=== PATIENT | female | born 1965 | race Caucasian/White ===

== ENCOUNTER → 2018-09-25 12:08 | Outpatient (CLI) | payer OTHER, SELFPAY ==
--- NOTE | 2018-09-25 12:14 | US_ITS ---
STUDY: ABDOMINAL ULTRASOUND - RIGHT UPPER QUADRANT REASON FOR VISIT: Female, 52 years old. Abdominal pain. TECHNIQUE: Ultrasound evaluation of the right upper quadrant was performed with real-time and static bennett-scale imaging. TECHNICAL QUALITY: Adequate. COMPARISON: Comparison is made with prior examination dated March 22, 2014. FINDINGS: Liver: The liver measures 10.7 cm. There is normal echogenicity of the liver. The bile ducts are within normal limits. There is hepatic color flow. The direction of portal flow is hepatopetal. There is no demonstrated mass lesion. Gallbladder: Normal distended gallbladder. The gallbladder wall measures 2.0 mm. There is a negative sonographic Delaney's sign. There is no pericholecystic fluid. There are no gallstones. 2 gallbladder polyps are seen adherent to the gallbladder wall. The larger measures 4 mm x 3 mm x 3 mm. These are unchanged. Common Bile Duct (C.B.D.): The common bile duct measures 1.4 mm. Pancreas: Normal size of the head, body and tail of the pancreas. There is normal echogenicity of the pancreas. There is no demonstrated pancreatic mass or cyst. Right Kidney: Normal size of the right kidney. The right kidney measures 10.7 cm x 4.3 cm x 3.8 cm. Normal renal cortex. The right cortex measures 1.0 cm. There is no demonstrated renal mass or cyst. There is no right hydronephrosis. US/Abdomen Limited IMPRESSION: Stable, 2 small gallbladder polyps. Electronically Signed: Dain Agrawal MD at 9:53 EST Tel [phone], Service support ,
[2018-09-25 14:30] LABS: ALB/GLOB Ratio 1.1 RATIO (0.9-2.4); AST(SGOT) 18 U/L (15-37); Alanine Aminotransfer ALT/SGPT 23 U/L (13-56); Albumin, Serum 3.7 g/dL (3.2-5.0); Alkaline Phosphatase 80 U/L (45-117); Anion Gap 11 (5-15); BUN 15 mg/dL (7-18); BUN/Creat Ratio 20.1 RATIO (10-20); Calcium,Total 8.6 mg/dL (8.5-10.1); Chloride 105 mmol/L (98-107); Creatinine, Serum 0.74 mg/dL (0.55-1.02); EST Glomerular Filtration Rate 86 mL/min (>60); Est Glom Filt Rate - Afr Amer 104 mL/min (>60); Globulin 3.4 g/dL (2.2-4.2); Glucose 82 mg/dL (74-106); Potassium 3.7 mmol/L (3.5-5.1); Protein, Total 7.1 g/dL (6.4-8.2); Sodium Level 144 mmol/L (136-145)
[2018-09-27 11:28] LABS: Bilirubin, Direct 0.27 mg/dL (0.00-0.30)
== END ==
PROVIDERS: Family Provider Family Medicine; PCP Family Medicine; Referring Provider Family Medicine; Visit Provider Family Medicine
DX: R17 Unspecified jaundice (principal); R10.11 Right upper quadrant pain; R10.9 Unspecified abdominal pain
CPT/HCPCS: 36415; 76705; 80053; 82248

== ENCOUNTER 2018-11-10 17:00 | Outpatient (RCR) | payer OTHER, SELFPAY ==
--- NOTE | 2018-09-22 07:59 | MASS.EVAL ---
Massage Therapy Evaluation: Initial Evaluation Date: 09/20/2018 SUBJECTIVE: Linda is a 52 year old female who was referred to the [facility] facility for a massotherapy evaluation by Dr. Madsen with the diagnosis of neck pain. She presents today with the symptoms of neck pain with headaches. 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 She reports having a medical history of neck and back pain. She reports having minimal limitations during her daily activities currently. OBJECTIVE: Upon observation Linda has poor posture with her head forward and shoulders forward from the neutral position in sitting and standing. After examination and palpation I found her to have very high muscle tension and myofascial restrictions in her sub occipitals, trapezius, rhomboids, scalenes, thoracic paraspinals and pectoral muscles. Her cervical through lumbar paraspinals were also tight. The first treatment consisted of a one hour massage to her upper body with myofascial release, muscle stripping, trigger point compression techniques, and cervical manual traction. ASSESSMENT: I feel that Linda is a good candidate for massotherapy at this time. She had a favorable response to the first treatment with reduction in her muscle aches, pain and tension. She also had improvement in her cervical flexibility. Massage has been known to help Linda in the past. PLAN: The plan of care was reviewed with the patient. The patient is to be seen on as needed basis for a total of ten sessions with the recommendation of once every four weeks for a one hour treatment. Whitney Rdz LMT
--- NOTE | 2018-09-22 08:05 | MASS.EVAL_ITS ---
Massage Therapy Evaluation: Initial Evaluation Date: 09/20/2018 SUBJECTIVE: Linda is a 52 year old female who was referred to the [facility] facility for a massotherapy evaluation by Dr. Madsen with the diagnosis of neck pain. She presents today with the symptoms of neck pain with headaches. 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 She reports having a medical history of neck and back pain. She reports having minimal limitations during her daily activities currently. OBJECTIVE: Upon observation Linda has poor posture with her head forward and shoulders forward from the neutral position in sitting and standing. After examination and palpation I found her to have very high muscle tension and myofascial r estrictions in her sub occipitals, trapezius, rhomboids, scalenes, thoracic paraspinals and pectoral muscles. Her cervical through lumbar paraspinals were also tight. The first treatment consisted of a one hour massage to her upper body with myofascial release, muscle stripping, trigger point compression techniques, and cervical manual traction. ASSESSMENT: I feel that Linda is a good candidate for massotherapy at this time. She had a favorable response to the first treatment with reduction in her muscle aches, pain and tension. She also had improvement in her cervical flexibility. Massage has been known to help Linda in the past. PLAN: The plan of care was reviewed with the patient. The patient is to be seen on as needed basis for a total of ten sessions with the recommendation of once every four weeks for a one hour treatment. Whitney Rdz LMT
--- NOTE | 2018-11-10 16:31 | MASS.DISCH ---
Massage Therapy Discharge Summary: Discharge Date: 11/10/2018 Linda was seen for a massotherapy evaluation on 09/20/2018 with the diagnosis of neck pain. She was treated with three sessions of massage therapy consisting of moderate pressure soft tissue techniques, myofascial release and trigger point compression to her upper body with focus on her neck and shoulders. Linda responded well to the therapy by reporting decreased tension in her neck, shoulders, back and hips. Her goals for therapy were not met throughout the treatment sessions due to not scheduling more appointments. At this time this patient is being discharged from our care at [facility] facility.
== END 2018-11-10 19:00 | disposition home or self-care (01) ==
LOC: MASS 17:00
PROVIDERS: Family Provider Family Medicine; PCP Family Medicine; Visit Provider Family Medicine
DX: M54.2 Cervicalgia (principal)
CPT/HCPCS: 97124

== ENCOUNTER 2018-11-13 07:30 | Day surgery (SDC) | payer OTHER, SELFPAY ==
[2018-11-08 08:24] VITALS: BMI 21.3
[2018-11-13] VITALS (7 sets, daily range): BP systolic 83–129; BP diastolic 56–75; PULSE 74–79; RESP 14–16; TEMP 36.4–37.4; O2SAT 96–100; BMI 21.7
--- NOTE | 2018-11-13 08:30 | IMM_PTH ---
PATIENT: TAMICA TAPIA LOC: EN U#:[id number] AGE/SX: 53/F ROOM: RE11/13/[address]: Dr. Donny Romero MD : 1965 BED: DIS: 11/13/2018 SPEC #: [id number] RECD: 11/15/18 07:50 STATUS: LEBRON REQ #: [id number] SARTHAK: 11/13/18 08:[address]: Donny Romero DEPT: IMMUNOHISTOCHEMISTRY RECD BY: Valorie Garcia ENTERED: 11/15/18 07:51 SP TYPE: IMMUNO OTHR DR: Dr. Camila Madsen, DO Tissues: Stomach, NOS Procedures: H Pylori (initial) PHYSICIAN & INSTITUTION [place] [id number] SPECIMEN INFORMATION: Tissue Source: Antrum biopsy Clinical Info: Right upper quadrant abdomen pain, nausea, history H. pylori, diarrhea Specimen Number: [id number] CPT code: 36234 METHODOLOGY: Deparaffinized sections of prefer/formalin-fixed tissue or PAP/DQ stained slides are incubated with monoclonal/polyclonal antibodies/oligonucleotide probes. Localization is made via biotin free immunoperoxidase method. Appropriate controls are performed and reacted as expected. Results on target cell population are indicated in the following table: RESULTS: ANTIBODY / CLONE RESULT H Pylori (polyclonal) negative These tests were developed and their performance characteristics determined by [facility]. They may not have been cleared or approved by the U.S. Food and Drug Administration. The FDA has determined that such clearance or approval is not necessary. INTERPRETATION: Antrum, biopsy: Negative for Helicobacter pylori organisms. AM:jona 11/15/18
--- NOTE | 2018-11-13 08:30 | OP.ENDO_ITS ---
Patient Name: Linda Bellamy Procedure Date: 11/13/2018 8:11 AM Date of : 1965 Age: 53 Procedure: Upper GI endoscopy Indications: Abdominal pain in the right upper quadrant, Suspected Helicobacter pylori, Diarrhea, Nausea Providers: Donny Romero MD Referring MD: Donny Romero MD Medicines: See the Anesthesia note for documentation of the administered medications Patient Profile: This is a 53 year old female. Refer to note in patient chart for documentation of history and physical. Complications: No immediate complications. Procedure: Pre-Anesthesia Assessment: - Prior to the procedure, a History and Physical was performed, and patient medications and allergies were reviewed. The patient's tolerance of previous anesthesia was also reviewed. The risks and benefits of the procedure and the sedation options and risks were discussed with the patient. All questions were answered, and informed consent was obtained. Prior Anticoagulants: The patient has taken no previous anticoagulant or antiplatelet agents. ASA Grade Assessment: II - A patient with mild systemic disease. After reviewing the risks and benefits, the patient was deemed in satisfactory condition to undergo the procedure. After obtaining informed consent, the endoscope was passed under direct vision. Throughout the procedure, the patient's blood pressure, pulse, and oxygen saturations were monitored continuously. The gastroscope was introduced through the mouth, and advanced to the second part of duodenum. The upper GI endoscopy was accomplished without difficulty. The patient tolerated the procedure well. Scope In: 8:21:25 AM Scope Out: 8:23:55 AM Total Procedure Duration Time 0 hours 2 minutes 30 seconds Findings: The examined esophagus was normal. The entire examined stomach was normal. Biopsies were taken with a cold forceps for Helicobacter pylori testing. The examined duodenum was normal. No biopsies or other specimens were collected for this exam. Impression: - Normal esophagus. - Normal stomach. Biopsied. - Normal examined duodenum. No specimens collected. Recommendation: - Discharge patient to home. - Resume previous diet. - Continue present medications. - Await pathology results. - Repeat upper endoscopy at appointment to be scheduled for surveillance. - Return to my office in 1 week. Procedure Code(s): --- Professional --- 73945, Esophagogastroduodenoscopy, flexible, transoral; with biopsy, single or multiple Diagnosis Code(s): --- Professional --- R10.11, Right upper quadrant pain R19.7, Diarrhea, unspecified R11.0, Nausea CPT copyright 2017 [employer]. All rights reserved. The codes documented in this report are preliminary and upon principal network architect review may be revised to meet current compliance requirements. MD Donny Vasquez MD 11/13/2018 8:29:04 AM This report has been signed electronically. Number of Addenda: 0 Note Initiated On: 11/13/2018 8:11 AM
--- NOTE | 2018-11-13 08:30 | GASB_PTH ---
PATIENT: TAMICA TAPIA LOC: EN U#:[id number] AGE/SX: 53/F ROOM: RE11/13/[address]: Dr. Donny Romero MD : 1965 BED: DIS: 11/13/2018 SPEC #: [id number] RECD: 11/13/18 09:10 STATUS: LEBRON DAI #: [id number] SARTHAK: 11/13/18 08:[address]: Donny Romero DEPT: SURGICAL PATHOLOGY RECD BY: Dominick Duke ENTERED: 11/13/18 11:56 SP TYPE: Gastric Bx OTHR DR: Dr. Camila Madsen, DO Tissues: Gastric mucous membrane Procedures: Surgery Specimen Level IV HEADER OPERATION: EGD ([facility] [place]) PRE-OP DIAGNOSIS: Right upper quadrant abdomen pain, nausea, history of H. pylori, diarrhea TISSUE SUBMITTED: Antrum biopsy for H. pylori and path MICROSCOPIC DIAGNOSIS Gastric antrum, biopsy: Chronic gastritis, mild to moderate. See comment. AM:jona 11/15/18 COMMENT The results of immunohistochemistry for Helicobacter pylori will be reported separately ([id number]). MICROSCOPIC DESCRIPTION Slides are reviewed. GROSS DESCRIPTION Received in fixative is one container labeled with the patient's name and designated antrum biopsy. The specimen consists of one irregular fragment of light claire soft tissue that measures 0.5 x 0.3 x 0.1 cm. The specimen is totally submitted in one cassette. / AM:jona 11/13/18 TC:3 CPT: 06945
== END 2018-11-13 09:16 | disposition home or self-care (01) ==
LOC: EN 07:31 → AC 07:32
PROVIDERS: Family Provider Family Medicine; PCP Family Medicine; Referring Provider Surgery; Visit Provider Surgery
PROC: 0DJ08ZZ Inspection of Upper Intestinal Tract, Via Natural or Artificial Opening Endoscopic (ICD-10-PCS; CPT 43235; principal; 2018-11-13 08:25)
DX: K29.50 Unspecified chronic gastritis without bleeding (principal); K82.4 Cholesterolosis of gallbladder; F41.9 Anxiety disorder, unspecified; D68.51 Activated protein C resistance; Z86.19 Personal history of other infectious and parasitic diseases; Z87.891 Personal history of nicotine dependence; Z79.899 Other long term (current) drug therapy
CPT/HCPCS: 43239; 88305; 88342; J7120

== ENCOUNTER 2018-11-24 08:28 | Day surgery (SDC) | payer OTHER, SELFPAY ==
[2018-11-13 07:46] VITALS: BMI 21.7
--- NOTE | 2018-11-21 11:42 | SDCEKG_ITS ---
Test Reason : Blood Pressure : / mmHG Vent. Rate : 082 BPM Atrial Rate : 082 BPM P-R Int : 122 ms QRS Dur : 078 ms QT Int : 368 ms P-R-T Axes : 014 057 036 degrees QTc Int : 429 ms Normal sinus rhythm Normal ECG Confirmed by BLAYNE VAZQUEZ, SENIA ([id number]), rewrite editor GIOVANA MCDONALD ([id number]) on 11/22/2018 3:33:54 PM Referred By: Donny Romero Confirmed By:SENIA CISNEROS MD
[2018-11-24] VITALS (9 sets, daily range): BP systolic 97–127; BP diastolic 63–86; PULSE 61–70; RESP 14–16; TEMP 36.3–37.2; O2SAT 95–100; BMI 21.9
--- NOTE | 2018-11-24 11:00 | LIVB_PTH ---
PATIENT: TAMICA TAPIA LOC: [facility] [place] U#:[id number] AGE/SX: 53/F ROOM: RE11/24/[address]: Dr. Donny Romero MD : 1965 BED: DIS: 11/24/2018 SPEC #: [id number] RECD: 11/27/18 07:15 STATUS: LEBRON DAI #: [id number] SARTHAK: 11/24/18 11:[address]: Donny Romero DEPT: SURGICAL PATHOLOGY RECD BY: Dominick Duke ENTERED: 11/27/18 08:12 SP TYPE: LIVER BX OTHR DR: Dr. Camila Madsen DO Tissues: A - Liver, NOS B - Gallbladder, NOS Procedures: Trichrome (control) Special Stain Group II Surgery Specimen Level III Surgery Specimen Level V Retic (control) Iron Stain (control) Alcian Blue (control) Alcian Blue/PAS (control) HEADER OPERATION: Laparoscopic cholecystectomy PRE-OP DIAGNOSIS: Polyp of gallbladder, right upper quadrant pain TISSUE SUBMITTED: A - Liver biopsy, B - Gallbladder MICROSCOPIC DIAGNOSIS A. Liver, core biopsy: No pathologic diagnosis. See comment. B. Gallbladder, cholecystectomy: Cholesterolosis and mild chronic cholecystitis. AM:jona 11/28/18 COMMENT A. Trichrome stain with matched control does not reveal fibrosis or cirrhosis. Iron stain with matched control does not reveal deposition of intraparenchymal iron. PAS with and without diastase and with matched controls do not reveal accumulation of abnormal proteins. Reticulin stain with matched control reveals a normal lymphatic architecture. Case has been reviewed in consultation with Dr. Rasmussen who concurs with the above diagnosis. IDC:SJ MICROSCOPIC DESCRIPTION Slides are reviewed. GROSS DESCRIPTION A - Received in fixative is one container labeled with the patient's name and designated liver biopsy. The specimen consists of an elongated fragment of brown soft tissue measuring 2 cm in length and 0.1 cm in diameter. The specimen is totally submitted in one cassette. B - Received is one container labeled with the patient's name and designated gallbladder. The specimen consists of a gallbladder measuring 8 cm in length and up to 4 cm in diameter. The external surface is pink-claire, smooth and glistening for the most part. Focally it is granular, hemorrhagic and contains cautery artifact. The gallbladder contains green-yellow mucoid bile. No stones are identified in the container or in the gallbladder. The mucosa is bile-stained and without any mass lesions. The gallbladder wall shows a few minute polypoid yellowish areas and may represent cholesterolosis. The gallbladder wall measures up to 0.1 cm in thickness. [employer] Message Broker Developer sections from the gallbladder and the cystic duct are submitted in one cassette. / SJ:jona 11/27/18 TC:3 CPT: 43956, 87682, 76123 x5
[2018-11-24] MEDS: Bupivacaine Mpf 0.5% 30 ML VIAL (11:15)
--- NOTE | 2018-11-24 11:34 | PCM.OPRPT ---
Problem List (1) Gallbladder polyp Status: Acute (2) Right upper quadrant abdominal pain Status: Acute (3) Nausea Status: Acute (4) Diarrhea Status: Acute Qualifiers: Diarrhea type: unspecified type Qualified Code(s): R19.7 - Diarrhea, unspecified Report of Operation Date of Procedure: 11/24/18 Pre-Operative Diagnosis: Follow-up of the gallbladder. Right upper quadrant abdominal pain. Nausea. Diarrhea unspecified Post-Operative Diagnosis: Same Surgery/Procedure Performed:: 1. Laparoscopic cholecystectomy. 2. Ferny-Cut needle core liver biopsy Type of Anesthesia:: Local Anesthesiologist: Viktor Damon Specimen's removed: 1. Gallbladder. 2. Ferny-Cut liver biopsy Drains: None Estimated Blood Loss (mL): < 25 CC Fluids Replaced: 1 L lactated Ringer's Description of Procedure: Patient was brought into the operating room placed in the supine position. Under excellent general endotracheal intubation the abdomen was sterilely prepped and draped in the usual fashion. Local was injected infraumbilically. Dissection was carried down to the fascia. The fascia was grasped with a [place]. Varies needle was placed inside the abdomen. The abdomen was insufflated to 15 torr. A 10/12 trocar was placed without difficulty. Patient was placed in the head up and rotated to the left position. A subxiphoid #5 trocar was placed, inferior to this another #5 trocar was placed, laterally a #5 trocar was placed. All of these under direct visualization without injury to underlying structures. Gallbladder was grasped and retracted in cephalad direction. It had a thick whitish running to it did not look like her normal salvador's egg blue. I dissected out the cystic duct it was an extremely small duct I inspected the portal triad I did not see any signs of dilatation and since the length of the cystic duct was short I did not feel comfortable trying to do a cholangiogram on a duct that looked obviously normal. I made a determination at that point that I was not going to do a cholangiogram. I placed hemoclips proximally and distally on the duct and ligated the duct. Identified the cystic artery placed hemoclips proximally distally and ligated the artery I deliver the gallbladder from the gallbladder bed with use of electrocautery. I had good hemostasis. I placed a specimen a specimen bag and delivered through the umbilical port without difficulty. I went back up to the liver. She did have an elevated bilirubin and since I will not going to shoot the cholangiogram I thought it was arvizu for me to obtain a Ferny-Cut liver biopsy. This was done on the right anterior aspect. Electrocautery was used for good hemostasis. I lifted up to look at the liver bed another time there was no signs of any bleeding clips were in good placement. Common duct was clearly visualized and did not look dilated. I removed the trochars under direct visualization. Good hemostasis was noted. Close the fascia the umbilical port with obiepy-sj-yemry stitch of 0 Vicryl skin incisions were closed with septicum stitches of 4-0 Monocryl Steri-Strips applied sterile dressings were applied and the patient tolerated the procedure well. - Admit VTE Documentation VTE Present on Admission: No VTE Mechan Device Prophylaxis: SCD's VTE Pharm Prophylaxis ordered?: No Reason prophylaxis not ordered:: Treatment Not Indicated
--- NOTE | 2018-11-24 11:40 | DCINST_ITS ---
Discharge Diet: Light diet - advance as tolerated Discharge Activity: May Not Drive - for 2-3 days or while taking narcotic pain medications., - - Do not drive, work heavy equipment or sign legal documents for 24 hours. May shower in (days): 1 - with the bandage in place. Additional Activity Instructions:: Pain medication may cause nausea. You should typically eat light foods as you take your pain medications. Pain medication may also cause constipation. If this is a problem for you, please discuss with your doctor. Call your doctor if your incision/area has: Continuous Slow Oozing, Sudden Increased Bleeding, Increased Pain/ Swelling, Increased Redness, Foul Smelling Discharge Call your doctor if you observe: Fever of 101 or Higher Suture Line Care: Avoid Pulling/Pushing, Avoid Pinching/Bending Additional Dressing/Incision Instructions:: Leave operative bandaids on for 2 days. When you remove dressing, leave Steri-Strips on until your follow-up appointment, or until the Steri-Strips fall off on their own. Allergies/Adverse Reactions: Allergies diazepam [From Valium] Allergy (Verified 11/24/18 08:43) Other oxycodone HCl [From Percocet] Allergy (Verified 11/24/18 08:43) Other Penicillins Allergy (Verified 11/24/18 08:43) Swelling zolpidem tartrate [From Ambien] Allergy (Verified 11/24/18 08:43) Other Medications to take at Discharge Lorazepam [Ativan] 0.5 mg PO DAILY PRN PRN 01/18/14 Clobetasol Propionate/Emoll [Clobetasol Emollient 0.05% Crm] 15 gm TP PRN PRN 11/21/18 Hydrocodone Bitart/Apap 5-325 [[place] 5MG-325MG] 1 - 2 tab PO Q4H PRN PRN 5 Days #30 tab 11/24/18 The following prescriptions were given: Hydrocodone Bitart/Apap 5-325 [[place] 5MG-325MG] 1 - 2 tab PO Q4H PRN PRN 5 Days #30 tab PRN Reason: Pain Primary Care Physician: Camila Madsen DO [Primary Care Provider] - Test Results: Test results from this visit will be discussed in further detail at your follow- up appointment, if applicable. Please Follow Up With: Donny Romero MD - Please call [phone] to schedule an appointment. When: 7 days after your surgery.
== END 2018-11-24 15:19 | disposition home or self-care (01) ==
LOC: SDC 08:30 → AC 08:31
PROVIDERS: Family Provider Family Medicine; PCP Family Medicine; Referring Provider Surgery; Visit Provider Surgery
PROC: (CPT 47379; principal; 2018-11-24 10:40)
DX: K81.1 Chronic cholecystitis (principal); D68.51 Activated protein C resistance; F41.9 Anxiety disorder, unspecified; Z87.891 Personal history of nicotine dependence; Z86.19 Personal history of other infectious and parasitic diseases; Z79.899 Other long term (current) drug therapy
CPT/HCPCS: 47379; 47562; 88304; 88307; 88313; 93005; J7120; J2405

== ENCOUNTER 2018-12-01 18:58 | Emergency (ER) | payer OTHER, SELFPAY ==
[2018-11-24 08:45] VITALS: BMI 21.9
[2018-12-01 18:58] VITALS: BP 138/78; PULSE 89; RESP 18; TEMP 36.7; O2SAT 98; BMI 21.7
[2018-12-01 19:10] VITALS: BP 149/83; PULSE 80; RESP 16; TEMP 37.4; O2SAT 95
--- NOTE | 2018-12-01 19:21 | CT_ITS ---
STUDY: CT ABDOMEN AND PELVIS WITH CONTRAST REASON FOR EXAM: Female, 53 years old. Right upper quadrant pain status post cholecystectomy. RADIATION DOSAGE (If Supplied By Facility): CTDIvol = ( 10.09 ) mGy, DLP = ( 318.40 ) mGycm TECHNIQUE: Transaxial images were obtained from the dome of the diaphragm to the symphysis pubis without oral contrast. 100 ml of Isovue 300 contrast was administered. Sagittal and coronal images were reconstructed. Individualized dose optimization techniques were used for this CT. COMPARISON: 01/18/2014. FINDINGS: Lung bases are clear. Visualized heart is normal. The liver is unremarkable. The gallbladder is surgically absent. There is no collection in the gallbladder fossa. The common duct is normal in caliber. The spleen and pancreas are unremarkable. The adrenal glands are normal. The kidneys are unremarkable. No stones or hydronephrosis. The aorta is normal in caliber. There is no free fluid, free air, or organized collection. No bowel obstruction or inflammatory change. Normal appendix. Urinary bladder is unremarkable. Normal abdominal wall. Normal osseous structures. CT/Abdomen/Pelvis W IV Cont ONLY IMPRESSION: No acute findings. No free fluid or collection in the gallbladder fossa. Electronically Signed: Fiordaliza Maddox MD at 20:34 EST Tel , Service support ,
[2018-12-01 19:39] LABS: Absolute Lymphocyte Count 2.43 X10^3/ul (0.83-4.51); Absolute Neutrophil Count 2.8 X10^3/uL (2.0-7.7); Basophil# 0.03 X10^3/uL; Basophil% 0.5 % (0-1); Eosinophil# 0.26 X10^3/uL; Eosinophils% 4.3 % (0-5); Hematocrit 40.8 % (37-47); Hemoglobin 13.4 g/dl (12.0-15.0); Lymphocyte # 2.43 X10^3/ul (4.0); Lymphocyte % 39.9 % (19-41); Mean Corp Hgb Conc 32.8 g/gl (32-36); Mean Corpuscular Hgb 29.5 pg (27.0-32.0); Mean Corpuscular Volume 89.7 fL (81-99); Mean Platelet Vol. 10.9 fl (6.2-12.0); Monocyte# 0.55 X10^3/uL; Neutrophil # 2.82 X10^3/uL (2.7-7.7); Neutrophil % 46.3 % (47-70); POSITIVE COUNT NO; POSITIVE DIFFERENTIAL NO; POSITIVE MORPHOLOGY NO; Platelet Count 230 K/mm3 (150-450); RBC Distribution Width CV 12.8 % (11.6-14.6); RBC Distribution Width SD 41.3 fl (35.1-43.9); Red Blood Count 4.55 M/mm3 (4.2-5.4); White Blood Count 6.1 K/mm3 (4.4-11.0)
[2018-12-01 19:49] LABS: AST(SGOT) 29 U/L (15-37); Alanine Aminotransfer ALT/SGPT 67 U/L (13-56); Albumin, Serum 3.7 g/dL (3.2-5.0); Alkaline Phosphatase 117 U/L (45-117); Anion Gap 8 (5-15); BUN 17 mg/dL (7-18); BUN/Creat Ratio 24.5 RATIO (10-20); Bilirubin, Direct 0.14 mg/dL (0.00-0.30); Calcium,Total 8.4 mg/dL (8.5-10.1); Chloride 105 mmol/L (98-107); Creatinine, Serum 0.69 mg/dL (0.55-1.02); EST Glomerular Filtration Rate 93 mL/min (>60); Est Glom Filt Rate - Afr Amer 113 mL/min (>60); Estimated Creatinine Clearance 72.86 ml/min; Globulin 3.6 g/dL (2.2-4.2); Glucose 98 mg/dL (74-106); Lipase 240 U/L (73-393); Protein, Total 7.3 g/dL (6.4-8.2); Sodium Level 138 mmol/L (136-145)
--- NOTE | 2018-12-01 21:17 | ED.VISSUMM ---
- ER Visit Summary Date of Service: 12/01/18 Chief Complaint: Right upper quadrant abdominal pain History of Present Illness: The patient is a 53 F is post cholecystectomy on 11/23/2018. Also at that time patient had liver biopsy. She is been doing well with but has had pretty constant pain since surgery about 8 days ago. She denies any nausea vomiting or fever. Due to the continued pain they want to make sure she was not having some type of complication. Physical Examination: Well-appearing middle-age female. Vital signs are stable afebrile. No distress. H EENT exam unremarkable. Neck nontender. Lungs there to auscultation bilaterally. Heart regular rhythm no murmur. Abdomen is soft. Nondistended. Normal bowel sounds. Very minimal right upper quadrant tenderness to deep palpation. The laparoscopic surgical sites are all dry and clean are healing nicely. There is no signs of infection. Positive bowel sounds. No signs of obstruction. Extremities unremarkable. Neurologically she is awake and alert with no focal motor deficits. Test Results: CBC White count of 6. Hemoglobin 13. Electrolytes normal. Liver enzymes normal except for ALT slightly elevated at 67. The rest are normal. Lipase normal. CT abdomen pelvis with IV contrast showed no acute findings as read by the radiologist and reviewed by me. There is no free fluid or fluid collection. No signs of an abscess nor any signs of a biliary leak. Emergency Department Course and Treatment: Repeat exam patient doing well at 2105. Abdomen is benign. We discussed all test results and she is more than comfortable being discharged home. I also spoke to her general surgeon Dr. Chevy Romero who will see the patient outpatient follow-up. She already is on pain medications at home. Treatment Plan: Continue current pain meds. Follow-up with your doctor. Disposition: Discharge Impression: Acute abdominal pain status post laparoscopic cholecystectomy This note was generated with [employer] dictation software. It may contain incorrect words, spelling, and punctuation that were not noted in review of the chart prior to signing ED Disposition - Plan for ED Patient: Chief Complaint: Abd Pain Referrals: Camila Madsen DO [Primary Care Provider] -
--- NOTE | 2018-12-01 21:20 | ED.DEP ---
ED Disposition - Plan for ED Patient: Disposition: Home or Assisted Living Chief Complaint: Abd Pain Referrals: Donny Romero MD [STAFF PHYSICIAN] - As soon as possible Additional Instructions: Follow-up with Dr. Romero next week. Continue your current pain medications as needed.
[2018-12-01 21:22] VITALS: BP 116/5; PULSE 84; RESP 16; O2SAT 99
--- OUTSIDE RECORDS SUMMARY | 2019-02-05 08:26 | XMS RPT_ITS ---
:1965 Author Organization [employer] Name Relationship Address Phone MAUREEN ROSAMARIA Unavailable . + [place] [address] OHAIL, KILO Unavailable [address] + [place] [address] [facility] Unavailable [address] + [place] [address] MAUREEN, ROSAMARIA Unavailable . + [place] [address] OHAIL, KILO Unavailable [address] + [place] [address] [facility] Unavailable [address] + [place] [address] MAUREEN, ROSAMARIA Unavailable . + [place] [address] OHAIL, KILO Unavailable [address] + [place] [address] [facility] Unavailable [address] + [place] [address] MAUREEN, ROSAMARIA Unavailable Unavailable + [place] [address] OHAIL, KILO Unavailable [address] + [place] [address] [facility] Unavailable [address] + [place] [address] MAUREEN, ROSAMARIA Unavailable . + [place] [address] OHAIL, KILO Unavailable . + [place] [address] [facility] Unavailable [address] + [place] [address] MAUREEN, ROSAMARIA Unavailable . + [place] [address] OHAIL, KILO Unavailable [address] + [place] [address] [facility] Unavailable [address] + [place] [address] MAUREEN, ROSAMARIA Unavailable Unavailable + OHAIL, KILO Unavailable Unavailable + [facility] Unavailable [address] + [place] [address] MAUREEN, ROSAMARIA Unavailable Unavailable + [place] [address] OHAIL, KILO Unavailable [address] + [place] [address] [facility] Unavailable [address] + [place] [address] MAUREEN, ROSAMARIA Unavailable Unavailable + OHAIL, KILO Unavailable Unavailable + [facility] Unavailable [address] + [place] [address] Maureen, Rosamaria Unavailable . + [place] [address] [facility] Unavailable [address] + [place] [address] [facility] Unavailable [address] + [place] [address] EIALLYN, ROSAMARIA Unavailable Unavailable + SHAHAB, RICH Unavailable [address] + [place] [address] [facility] Unavailable [address] + [place] [address] EIKEISHAERRY, ROSAMARIA Unavailable Unavailable + SHAHAB RICH Unavailable [address] + [place] [address] [facility] Unavailable [address] + [place] [address] EIKEISHAERRY, ROSAMARIA Unavailable x + [place] [address] SHAHAB, RICH Unavailable [address] + [place] [address] [facility] Unavailable [address] + [place] [address] Care Team Providers Name Role Phone [place], Donny Attending Unavailable Referred, Self Referring Unavailable [place], Donny Attending Unavailable [place], Donny Referring Unavailable Malys, Camila Primary Care Unavailable Nick, Donny Attending Unavailable Nick, Donny Referring Unavailable Malys, Camila Primary Care Unavailable Nick, Donny Attending Unavailable Malys, Camila Referring Unavailable [place], Donny Attending Unavailable Macie TADEO, Vee Attending Unavailable Malys, Camila Referring Unavailable Malys, Camila Primary Care Unavailable Jesse Penn Attending Unavailable MoodispaLamont powers Attending Unavailable DeHorta, Brady Referring Unavailable Leslie Dangelo Attending Unavailable Malys, Camila Referring Unavailable ASSESSMENT, HEALTH RISK Attending Unavailable ASSESSMENT, HEALTH RISK Referring Unavailable Malys, Camila Primary Care Unavailable Malys, Camila Attending Unavailable Malys, Camila Referring Unavailable Malys, Camila Primary Care Unavailable Malys, Camila Attending Unavailable Malys, Camila Referring Unavailable Malys, Camila Primary Care Unavailable Malys, Camila Attending Unavailable Malys, Camila Primary Care Unavailable PROBLEMS PROBLEMS DATE TYPE CONDITION / CODE ATTENDING STATUS SOURCE 11/24/2018 Unknown K82.4 - Donny Romero Active [place] [facility]olesterol[facility] of [facility] gallbladder / Hospital K82.4(ICD-10) Repository 12/08/2018 Unknown Z01.810 - Encounter Lamont Cisneros Active [place] for preprocedural [facility] cardiovascular Hospital examination / Repository Z01.810(ICD-10) 11/27/2018 Unknown R10.11 - Right upper Nick, Donny Active [place] quadrant pain / Community R10.11(ICD-10) Hospital Repository 11/27/2018 Unknown R11.0 - Nausea / [place]Donny Active [place] R11.0(ICD-10) [facility] Repository 11/27/2018 Unknown R19.7 - Diarrhea, Nick, Donny Active [place] unspecified / Community R19.7(ICD-10) Hospital Repository 11/13/2018 Unknown M54.2 - Cervicalgia / Malys, Camila Active [place] M54.2(ICD-10) [facility] Repository 11/08/2018 Unknown Z86.19 - Personal Donny Romero Active [place] history of other Community infectious and Hospital parasitic diseases / Repository Z86.19(ICD-10) 09/25/2018 Unknown R17 - Unspecified Malys, Camila Active [place] jaundice / Community R17(ICD-10) Hospital Repository 09/25/2018 Unknown R10.9 - Unspecified Camila Madsen Active [place] abdominal pain / Community R10.9(ICD-10) Hospital Repository PROCEDURES PROCEDURES No Procedure Records FoundRESULTS RESULTS URGENT CARE VISIT Observed: 12/09/2018 Status: F Source: [place] REPORT 9:50 AM [facility] [address] [place] [address] [address] [place] [address] OFFICE VISIT Date of Service: 12/09/18 MR#: [id number] Acct: [id number] Name: LINDA BELLAMY Rep #: [id number] : 1965 Provider: IVAN Dangelo Age/Sex: 53/F Location: [facility] Status: Signed Intake Vital Signs12/09/18 Height 5 ft 2 in 12/09/18 Weight: 117 lb 8 oz Intake Visit Reasons: HIVES SINCE /HAD SX NOV 24 Chief Complaint: Hives Cloth Finisher Required: No Accompanied by: Family / Other Allergies diazepam [From Valium] Allergy (Verified 11/30/18 13:53) Other oxycodone HCl [From Percocet] Allergy (Verified 11/30/18 13:53) Other Penicillins Allergy (Verified 11/30/18 13:53) Swelling zolpidem tartrate [From Ambien] Allergy (Verified 11/30/18 13:53) Other Medications Lorazepam [Ativan] 0.5 mg PO DAILY PRN PRN 01/18/14 [History Confirmed 12/01/18] Clobetasol Propionate/Emoll [Clobetasol Emollient 0.05% Crm] 15 gm TP PRN PRN 11/21/18 [History Confirmed 12/01/18] Hydrocodone/Acetaminophen [Royal 5-325 Tablet] 1 - 2 ea PO Q4H PRN PRN 12/01/18 [History Confirmed 12/01/18] PFSH Medical History Anxiety (Acute) Factor V Leiden (Acute) Gallbladder polyp (Acute) Surgical History History of breast augmentation (Acute) History of colonoscopy (Acute 06/2017) History of dilation and curettage (Acute 2004) S/P laparoscopic cholecystectomy (Acute) Family History Sister Asthma Colon cancer Mother Diabetes Heart disease Hypertension CVA (cerebral vascular accident) Social History Smoking Status: Former smoker HPI HPI Chief Complaint: Hives Details: LINDA BELLAMY, is a 53 F who presents to the office today for history of being up all night the past 2 nights with hives on her abdomen, back and bilateral forearms diffusely. She gives a history of having elevated bilirubin, cholecystectomy 11/2018, and liver biopsy which was negative. She was told she has inflammation of the liver that was causing her RUG pain for a few weeks. She ttook some Hydrocodone for about 5 days, and was then told to take Ibuprofen which she did for 4 days which brought her RUG abdominal pain down to 2/10 from . She states she does however continue to have indigestion with belching mid epigastric area. She is convinced the hives are from a new soap she took a bath with as the hives started shortly after the bath. She has not used the soap since. She states she has taken Ibuprofen before, and we discussed this also as a possibility. She states she gets hyper with Benadryl but wanted to see if she could try Atarax as she cannot tolerate another night of sleep. The hives are cyclic and only bad at night and clear by the morning. There is now only one on her right forearm. She states both forearms were bright red and itching all night . ROS Const Constitutional: No body ache, chills, fatigue, fever(s), night sweats, change in appetite, weakness, frequent falls, headache(s) or excessive sweating Eyes Eyes: No visual disturbances, light sensitivity, eye pain or change in vision ENT ENT: No ear pain, ear discharge, hearing loss, dizziness/vertigo, nasal discharge, difficulty swallowing, sore throat, neck pain or headache(s) Resp Respiratory: No cough, chest congestion, hemoptysis, shortness of breath or wheezing Cardio Cardiology: No shortness of breath, irregular heart rhythm, lightheadedness, chest pain at rest, chest pain with exertion, generalized swelling, orthopnea, palpitations or excessive sweating Gastro GI: Positive for belching (with epigastric discomfort); no difficulty swallowing, abdominal pain, bloating, change in bowel habits, diarrhea, blood in stool, Black,tarry stools, nausea/dyspepsia or vomiting Genitourinary-Female: No burning urination, urinary frequency, urinary urgency, blood in urine or Vaginal Itching Musc Musculoskeletal: No joint pain, back pain, numbness, tingling or neck pain Skin Skin: Positive for rash; no lesions or itching Neuro Neurology: No visual disturbances, numbness, tingling, abnormal speech, confusion, unsteady gait/balance, dizziness, weakness, frequent falls, loss of vision, headache(s) or memory loss Psych Psychiatric: No change in appetite, No confusion, No memory loss, Positive for anxiety (very strung out after being up itching all night, and recent health issues.), No depression, No panic attacks, No hallucinations, No Thoughts of harming yourself/Others Endo Endocrine: No fatigue, cold intolerance, excessive sweating, flushing, heat intolerance or increased thirst/drinking Aller/Imm Allergy/Immunologic: No wheezing, food intolerance, seasonal allergy symptoms, hives or itchy eyes Tarun/Lymp Hematologic/Lymphatic: Positive for other (has factor V, so rashid risk for blood clots); no easy bruising Exam Const General: cooperative, no acute distress Nutritional Appearance: thin Orientation: alert, oriented x3 HENMT Head: normal to inspection, normocephalic Ears: hearing grossly normal bilaterally, external ears normal, no periauricular adenopathy, EAC's normal Nose: nasal mucous membranes and turbinates normal, no nasal discharge Face and sinus: normal facial exam Mouth: oral mucosae normal, oropharynx normal, tongue normal Teeth and gingiva: gingiva normal Throat: posterior oropharynx normal Eyes General: appearance normal, both eyes and all related structures Eyelids: eyelids normal Conjunctivae: conjunctivae normal Sclera: sclerae normal Pupils: PERRL EOM: EOM intact bilaterally Direct ophthalmoscopy: normal light reflex, no photophobia Neck Neck: normal visual inspection, full ROM, no meningeal signs, supple, no lymphadenopathy Carotids: no bruits Lymphatic: no lymphadenopathy noted Chest Chest palpation AND inspection: normal inspection of the chest Resp Effort AND Inspection: normal respiratory effort, able to speak in complete sentences, symmetric chest movement, no audible wheezes, no cough, not labored, no respiratory distress Auscultation: Bilateral: Clear to Auscultation Cardio Rate: regular rate Rhythm: regular rhythm Heart Sounds: S1 normal, S2 normal GI Inspection: normal to inspection Auscultation: normal bowel sounds Palpation: soft, no hepatosplenomegaly, no pulsatile masses, tender (minimally RUQ and epigastrium. No bruits. ) Musc Musculoskeletal: No joint tenderness or joint redness Skin Rashes: rashes noted (one slightly raised, erythematous lesion c/w hive right volar forearm. ) Trauma: no lacerations or abrasions Wounds: no wounds Nails: normal Other: Patient states diffuse hives that keptt her up alll night cleared about 6 am. Neuro General: alert, oriented x3, moves all extremities Cognition: normal cognition Speech: speech normal Gait: normal gait Motor: muscle tone normal throughout Extrem General: normal exam except as noted (a hive right volar forearm), normal gait Psych Appearance: grossly normal, well kempt Mental Status: mental status grossly normal Mood: anxious mood (mild) Affect: normal affect Speech and Movement: speech and movement normal Attitude: cooperative Thought Process: normal Thought Content: normal Judgment: judgment good Assessment AND Plan Problems 1. Hives L50.9 Plan 1. Called Atarax to [facility] [place] 25 mg tablets, # 15, take one every 8 hours as needed for itching/hives. 2. Though patient is convinced this is from a new soap she used in a bath the night the hives started, discussed the possibility of it being from the Ibuprofen she had been taking X the 4 days prior to the hives erupting. She is advised to discuss with her PCP for further evaluation on Tuesday. 3. Prednisone was discussed as an option, but due to her recent liver issues she was afraid to take any medication other than the atarax, which her daughter, who is a nurse recommended she try since she gets hyper with Benadryl. 4. At present time there is only one hive present, on her right volar forearm. becomes severe and wide spread in the evenings and keeps up all night. She is advised to go to the ER if any SOB, Chest pain, or worsening off her symptoms occur. 5. Rec: f/u with an flame annealing machine operator. Coding Level of Care Code Off vis,est,level 3 Diagnoses Hives L50.9 12/09/18 0950 <Electronically signed by Leslie LOVE> Date Leslie Rivas Signature: Date (if applicable) CC: EMERGENCY DEPARTMENT Observed: 12/02/2018 Status: F Source: [place] SUMMARY 12:00 AM [facility] [place] Medical Records Department [address] [place] [address] Emergency Department Summary 12/01/18 2117 MR#: [id number] Acct: [id number] Name: LINDA BELLAMY Rep #: [id number] : 1965 53 From: Jesse Penn MD PCP: Camila Madsen DO Status: DEP ER - ER Visit Summary Date of Service: 12/01/18 Chief Complaint: Right upper quadrant abdominal pain History of Present Illness: The patient is a 53 F is post cholecystectomy on 11/23/2018. Also at that time patient had liver biopsy. She is been doing well with but has had pretty constant pain since surgery about 8 days ago. She denies any nausea vomiting or fever. Due to the continued pain they want to make sure she was not having some type of complication. Physical Examination: Well-appearing middle-age female. Vital signs are stable afebrile. No distress. H EENT exam unremarkable. Neck nontender. Lungs there to auscultation bilaterally. Heart regular rhythm no murmur. Abdomen is soft. Nondistended. Normal bowel sounds. Very minimal right upper quadrant tenderness to deep palpation. The laparoscopic surgical sites are all dry and clean are healing nicely. There is no signs of infection. Positive bowel sounds. No signs of obstruction. Extremities unremarkable. Neurologically she is awake and alert with no focal motor deficits. Test Results: CBC White count of 6. Hemoglobin 13. Electrolytes normal. Liver enzymes normal except for ALT slightly elevated at 67. The rest are normal. Lipase normal. CT abdomen pelvis with IV contrast showed no acute findings as read by the radiologist and reviewed by me. There is no free fluid or fluid collection. No signs of an abscess nor any signs of a biliary leak. Emergency Department Course and Treatment: Repeat exam patient doing well at 2105. Abdomen is benign. We discussed all test results and she is more than comfortable being discharged home. I also spoke to her general surgeon Dr. Chevy Romero who will see the patient outpatient follow-up. She already is on pain medications at home. Treatment Plan: Continue current pain meds. Follow-up with your doctor. Disposition: Discharge Impression: Acute abdominal pain status post laparoscopic cholecystectomy This note was generated with Onefeat dictation software. It may contain incorrect words, spelling, and punctuation that were not noted in review of the chart prior to signing ED Disposition - Plan for ED Patient: Chief Complaint: Abd Pain Referrals: Camila Madsen DO [Primary Care Provider] - What to do if you have Problems For any increased pain, shortness of breath, bleeding, nausea or vomiting, chest pain, or any unexpected problems, contact your Primary Care Provider. Call [facility] ([phone]) or report to the closest Emergency Room. Call 911 if necessary. 12/02/18 0000 <Electronically signed by Jesse Penn MD> Date Jesse Penn MD Cosigner Signature (If Indicated): Date CC: Camila aMdsen DO DISCHARGE INSTRUCTION Observed: 12/02/2018 Status: F Source: [place] 12:00 AM [facility] Medical Records Department [address] [place] [address] Discharge Instruction 12/01/182119 MR#: [id number] Acct: [id number] Name: LINDA BELLAMY Rep #: [id number] : 1965 53 From: Jesse Penn MD PCP: Camila Madsen DO Status: DEP ER ED Disposition - Plan for ED Patient: Disposition: Home or Assisted Living Chief Complaint: Abd Pain Referrals: Donny Romero MD [STAFF PHYSICIAN] - As soon as possible Additional Instructions: Follow-up with Dr. Romero next week. Continue your current pain medications as needed. What to do if you have Problems For any increased pain, shortness of breath, bleeding, nausea or vomiting, chest pain, or any unexpected problems, contact your Primary Care Provider. Call [facility] ([phone]) or report to the closest Emergency Room. Call 911 if necessary. 12/02/18 0000 <Electronically signed by Jesse Penn MD> Date Jesse Penn MD Cosigner Signature (If Indicated): Date CC: Camila Madsen DO ABDOMEN/PELVIS W IV CONT Observed: 12/01/2018 Status: F Source: [place] ONLY 7:22 PM [facility] Imaging Services [address] [place] [address] Abdomen/Pelvis W IV Cont ONLY MR#: [id number] Acct: [id number] Name: [facility] Rep #: [id number] : 1965 F 53 From: Fiordaliza Maddox MD PCP: Camila Madsen DO Status: REG ER Study: Abdomen/Pelvis W IV Cont ONLY Date of Exam: 12/01/18 Exam# [id number] Ordering Dr: Jesse Penn MD STUDY: CT ABDOMEN AND PELVIS WITH CONTRAST REASON FOR EXAM: Female, 53 years old. Right upper quadrant pain status post cholecystectomy. RADIATION DOSAGE (If Supplied By Facility): CTDIvol = ( 10.09 ) mGy, DLP = ( 318.40 ) mGycm TECHNIQUE: Transaxial images were obtained from the dome of the diaphragm to the symphysis pubis without oral contrast. 100 ml of Isovue 300 contrast was administered. Sagittal and coronal images were reconstructed. Individualized dose optimization techniques were used for this CT. COMPARISON: 01/18/2014. FINDINGS: Lung bases are clear. Visualized heart is normal. The liver is unremarkable. The gallbladder is surgically absent. There is no collection in the gallbladder fossa. The common duct is normal in caliber. The spleen and pancreas are unremarkable. The adrenal glands are normal. The kidneys are unremarkable. No stones or hydronephrosis. The aorta is normal in caliber. There is no free fluid, free air, or organized collection. No bowel obstruction or inflammatory change. Normal appendix. Urinary bladder is unremarkable. Normal abdominal wall. Normal osseous structures. CT/Abdomen/Pelvis W IV Cont ONLY IMPRESSION: No acute findings. No free fluid or collection in the gallbladder fossa. Electronically Signed: Fiordaliza Maddox MD at 20:34 EST Tel , Service support , CC: Jesse Penn MD; Camila Madsen DO Dry Cans Back Tender: Signed CBC W/DIFF, AUTOMATED Collected: 12/01/2018 Status: F Source: [place] 7:20 PM [facility] [place] [facility] TYPE CODE TESTS RESULT OUT OF RANGE REFERENCE UNITS LAB L100.1000 4.4-11.0 K/mm3 Normal WBC 6.1 LAB L100.1200 4.2-5.4 M/mm3 Normal RBC 4.55 LAB L100.1300 12.0-15.0 g/dl Normal HGB 13.4 LAB L100.1400 37-47 % Normal HCT 40.8 LAB L100.1500 81-99 fL Normal MCV 89.7 LAB L100.1600 27.0-32.0 pg Normal MCH 29.5 LAB L100.1700 32-36 g/gl Normal MCHC 32.8 LAB L100.1810 11.6-14.6 % Normal RDW CV 12.8 LAB L100.1820 35.1-43.9 fl Normal RDW SD 41.3 LAB L100.1900 150-450 K/mm3 Normal PLT 230 LAB L100.2000 6.2-12.0 fl Normal MPV 10.9 LAB L100.2100 47-70 % Low NEUT% 46.3 LAB L100.2200 19-41 % Normal LY% 39.9 LAB L100.2300 0-10 % Normal MONO% 9.0 LAB L100.2400 0-5 % Normal EO% 4.3 LAB L100.2500 0-1 % Normal BASO% 0.5 LAB L100.2550 0.0-0.9 % Normal IM GRAN % 0.000 Result Comment: IG% - Immature Granulocytes (promyelocytes, myelocytes and metamyelocytes) > 1% indicates that a LEFT SHIFT is Present. LAB L100.2620 2.0-7.7 X10 3/uL Normal Absolute Neut 2.8 LAB L100.2720 0.83-4.51 X10 3/ul Normal Absolute Lymph 2.43 Performed By: #### L100.0100 #### [facility] [address] [place], [address] BASIC METABOLIC Collected: 12/01/2018 Status: F Source: [place] PROFILE (BMP) 7:20 PM [facility] [place] TYPE CODE TESTS RESULT OUT OF RANGE REFERENCE UNITS LAB L501.0100 74-106 mg/dL Normal GLU 98 Result Comment: Please note revised GLUCOSE reference range effective 2017. LAB L501.1000 7-18 mg/dL Normal BUN 17 LAB L501.1100 0.55-1.02 mg/dL Normal CREAT,SERUM 0.69 Result Comment: The validity of the calculated GFR AND GFRAA in patients over 70 years has not been determined. Clinical correlation is essential. LAB L501.1110 >60 mL/min Normal EST GFR 93 Result Comment: Non- GFR Calc LAB L501.1115 >60 mL/min Normal EST GFR - AA 113 Result Comment: GFR Calc LAB L501.1255 ml/min Normal Estimated CRCL 72.86 LAB L501.1300 10-20 RATIO High BUN/CRE 24.5 LAB L501.2200 8.5-10 mg/dL Low .1 CA 8.4 LAB L501.5300 136-14 mmol/L Normal 5 NA 138 LAB L501.5600 3.5-5. mmol/L Normal 1 K 4.0 LAB L501.5900 98-107 mmol/L Normal CL 105 LAB L501.6100 21.0-3 mmol/L Normal 2.0 CO2 25.0 LAB L501.6200 5-15 Normal GAP 8 Performed By: #### L500.2500, L500.3400, L501.2450 #### [facility] [address] [place], [place], [address] LIVER PROFILE Collected: 12/01/2018 Status: F Source: [place] 7:20 PM [facility] [place] TYPE CODE TESTS RESULT OUT OF RANGE REFERENCE UNITS LAB L501.1500 6.4-8.2 g/dL Normal T PROT 7.3 LAB L501.1800 3.2-5.0 g/dL Normal ALB 3.7 LAB L501.1950 2.2-4.2 g/dL Normal GLOB 3.6 LAB L501.4100 15-37 U/L Normal AST 29 LAB L501.4305 45-117 U/L Normal ALK P 117 LAB L501.4405 13-56 U/L High ALT 67 LAB L501.4600 0.20-1.00 mg/dL Normal T BILI 0.80 LAB L501.4700 0.00-0.30 mg/dL Normal D BILI 0.14 Performed By: #### L500.2500, L500.3400, L501.2450 #### [facility] [address] [place], [place], [address] LIPASE Collected: 12/01/2018 Status: F Source: [place] 7:20 PM [facility] TYPE CODE TESTS RESULT OUT OF RANGE REFERENCE UNITS LAB L501.2450 73-393 U/L Normal LIPASE 240 Performed By: #### L500.2500, L500.3400, L501.2450 #### [facility] [address] [place], [address] SURGERY VISIT REPORT Observed: 11/30/2018 Status: F Source: [place] 2:15 PM [facility] [address] [place], [place] [address] OFFICE VISIT Date of Service: 11/30/18 MR#: [id number] Acct: [id number] Name: LINDA BELLAMY Rep #: [id number] : 1965 Provider: Vee Quijano PA-C Age/Sex: 53/F Location: [facility] Status: Signed Intake Intake Visit Reasons: f/u candice surgery 11/24/18 dp Chief Complaint: RUQ pain Cloth Finisher Required: No Is patient in pain?: No Allergies diazepam [From Valium] Allergy (Verified 11/30/18 13:53) Other oxycodone HCl [From Percocet] Allergy (Verified 11/30/18 13:53) Other Penicillins Allergy (Verified 11/30/18 13:53) Swelling zolpidem tartrate [From Ambien] Allergy (Verified 11/30/18 13:53) Other Medications Lorazepam [Ativan] 0.5 mg PO DAILY PRN PRN 01/18/14 [History Confirmed 11/30/18] Clobetasol Propionate/Emoll [Clobetasol Emollient 0.05% Crm] 15 gm TP PRN PRN 11/21/18 [History Confirmed 11/30/18] Subjective Details: Patient is a 53 y/o female I am following for RUQ pain, polyp of gallbladder. Dr. Romero performed a laparoscopic cholecystectomy and liver biopsy on 11/24/18. Pathology demonstrated no pathologic diagnosis of the liver and mild chronic cholecystitis. Patient continues to note moderate amount of discomfort of the RUQ. She denies nausea, vomiting, fever. She notes her appetite is slow to return. she notes bowel habits has returned to normal. Objective Details: Abdomen- soft, tender RUQ. Positive bowel sounds. Incisions c/d/i. No erythema or infection noted. Assessment AND Plan Problems 1. Chronic cholecystitis K81.1 Plan - RTW letter given for 12/11/18 - Follow-up as needed Coding Level of Care Code Global Post Op Diagnoses Chronic cholecystitis K81.1 11/30/18 1415 <Electronically signed by Vee Quijano PA-C> Date Vee Quijano PA-C Cosigner Signature: Date (if applicable) CC: Camila Madsen OPERATIVE REPORT Observed: 11/27/2018 Status: F Source: [place] 1:15 PM [facility] [place] Medical Records Department [address] [place] [address] Operative Report 11/24/18 1134 MR#: [id number] Acct: [id number] Name: LINDA BELLAMY Rep #: [id number] : 1965 53 From: Donny Romero MD PCP: Camila Madsen DO Status: DEP [facility] [place] Location: [facility] Problem List (1) Gallbladder polyp Status: Acute (2) Right upper quadrant abdominal pain Status: Acute (3) Nausea Status: Acute (4) Diarrhea Status: Acute Qualifiers: Diarrhea type: unspecified type Qualified Code(s): R19.7 - Diarrhea, unspecified Report of Operation Date of Procedure: 11/24/18 Pre-Operative Diagnosis: Follow-up of the gallbladder. Right upper quadrant abdominal pain. Nausea. Diarrhea unspecified Post-Operative Diagnosis: Same Surgery/Procedure Performed:: 1. Laparoscopic cholecystectomy. 2. Ferny-Cut needle core liver biopsy Type of Anesthesia:: Local Anesthesiologist: Viktor Damon Specimen's removed: 1. Gallbladder. 2. Ferny-Cut liver biopsy Drains: None Estimated Blood Loss (mL): < 25 CC Fluids Replaced: 1 L lactated Ringer's Description of Procedure: Patient was brought into the operating room placed in the supine position. Under excellent general endotracheal intubation the abdomen was sterilely prepped and draped in the usual fashion. Local was injected infraumbilically. Dissection was carried down to the fascia. The fascia was grasped with a Cooter. Varies needle was placed inside the abdomen. The abdomen was insufflated to 15 torr. A 10/12 trocar was placed without difficulty. Patient was placed in the head up and rotated to the left position. A subxiphoid #5 trocar was placed, inferior to this another #5 trocar was placed, laterally a #5 trocar was placed. All of these under direct visualization without injury to underlying structures. Gallbladder was grasped and retracted in cephalad direction. It had a thick whitish running to it did not look like her normal salvador's egg blue. I dissected out the cystic duct it was an extremely small duct I inspected the portal triad I did not see any signs of dilatation and since the length of the cystic duct was short I did not feel comfortable trying to do a cholangiogram on a duct that looked obviously normal. I made a determination at that point that I was not going to do a cholangiogram. I placed hemoclips proximally and distally on the duct and ligated the duct. Identified the cystic artery placed hemoclips proximally distally and ligated the artery I deliver the gallbladder from the gallbladder bed with use of electrocautery. I had good hemostasis. I placed a specimen a specimen bag and delivered through the umbilical port without difficulty. I went back up to the liver. She did have an elevated bilirubin and since I will not going to shoot the cholangiogram I thought it was arvizu for me to obtain a Ferny-Cut liver biopsy. This was done on the right anterior aspect. Electrocautery was used for good hemostasis. I lifted up to look at the liver bed another time there was no signs of any bleeding clips were in good placement. Common duct was clearly visualized and did not look dilated. I removed the trochars under direct visualization. Good hemostasis was noted. Close the fascia the umbilical port with [id number] stitch of 0 Vicryl skin incisions were closed with septicum stitches of 4-0 Monocryl Steri-Strips applied sterile dressings were applied and the patient tolerated the procedure well. - Admit VTE Documentation VTE Present on Admission: No VTE Mechan Device Prophylaxis: SCD's VTE Pharm Prophylaxis ordered?: No Reason prophylaxis not ordered:: Treatment Not Indicated 11/27/18 1312 <Electronically signed by Donny Romero MD> Date Donny Romero MD CC: Donny Romero MD; Camila Madsen DO Signed SURGERY VISIT REPORT Observed: 11/27/2018 Status: F Source: [place] 12:19 PM [facility] [place] [facility] [address] [place], [place] [id number] OFFICE VISIT Date of Service: 11/22/18 MR#: [id number] Acct: [id number] Name: LINDA BELLAMY Rep #: [id number] : 1965 Provider: Donny Romero MD Age/Sex: 53/F Location: [facility] Status: Signed Intake Intake Visit Reasons: 1 WK F/U Scope 11/13 Chief Complaint: RUQ pain Cloth Finisher Required: No Is patient in pain?: No Allergies diazepam [From Valium] Allergy (Verified 11/24/18 08:43) Other oxycodone HCl [From Percocet] Allergy (Verified 11/24/18 08:43) Other Penicillins Allergy (Verified 11/24/18 08:43) Swelling zolpidem tartrate [From Ambien] Allergy (Verified 11/24/18 08:43) Other Medications Lorazepam [Ativan] 0.5 mg PO DAILY PRN PRN 01/18/14 [History Confirmed 11/24/18] Clobetasol Propionate/Emoll [Clobetasol Emollient 0.05% Crm] 15 gm TP PRN PRN 11/21/18 [History Confirmed 11/24/18] Hydrocodone Bitart/Apap 5-325 [Royal 5MG-325MG] 1 - 2 tab PO Q4H PRN PRN 5 Days #30 tab 11/24/18 [Rx] Subjective Details: Patient is status post an esophagogastroduodenoscopy completed on 11/13/2018. I biopsied her for H. pylori which was negative for all intensive purposes her upper scope was entirely normal without signs of any erythema or gastritis. She still has persistent epigastric and right upper quadrant discomfort. Objective Details: Abdomen is soft and nontender. Assessment AND Plan Problems 1. Gall bladder polyp K82.4 2. Abdominal pain, RUQ R10.11 Plan We will proceed with a laparoscopic cholecystectomy Coding Level of Care Code Off vis,est,level 2 Diagnoses Gall bladder polyp K82.4 Abdominal pain, RUQ R10.11 11/27/18 1219 <Electronically signed by Donny Romero MD> Date Donny Romero MD [facility] Signature: Date (if applicable) CC: DISCHARGE INSTRUCTION Observed: 11/24/2018 Status: F Source: [place] 11:40 AM [facility] [place] Medical Records Department [address] [place] [address] Instructions for Home/Discharge Instructions 11/24/18 1139 MR#: [id number] Acct: [id number] Name: LINDA BELLAMY Rep #: [id number] : 1965 53 From: Donny Romero MD PCP: Camila Madsen DO Status: REG [facility] Discharge Diet: Light diet - advance as tolerated Discharge Activity: May Not Drive - for 2-3 days or while taking narcotic pain medications., - - Do not drive, work heavy equipment or sign legal documents for 24 hours. May shower in (days): 1 - with the bandage in place. Additional Activity Instructions:: Pain medication may cause nausea. You should typically eat light foods as you take your pain medications. Pain medication may also cause constipation. If this is a problem for you, please discuss with your doctor. Call your doctor if your incision/area has: Continuous Slow Oozing, Sudden Increased Bleeding, Increased Pain/ Swelling, Increased Redness, Foul Smelling Discharge Call your doctor if you observe: Fever of 101 or Higher Suture Line Care: Avoid Pulling/Pushing, Avoid Pinching/Bending Additional Dressing/Incision Instructions:: Leave operative bandaids on for 2 days. When you remove dressing, leave Steri-Strips on until your follow-up appointment, or until the Steri-Strips fall off on their own. Allergies/Adverse Reactions: Allergies diazepam [From Valium] Allergy (Verified 11/24/18 08:43) Other oxycodone HCl [From Percocet] Allergy (Verified 11/24/18 08:43) Other Penicillins Allergy (Verified 11/24/18 08:43) Swelling zolpidem tartrate [From Ambien] Allergy (Verified 11/24/18 08:43) Other Medications to take at Discharge Lorazepam [Ativan] 0.5 mg PO DAILY PRN PRN 01/18/14 Clobetasol Propionate/Emoll [Clobetasol Emollient 0.05% Crm] 15 gm TP PRN PRN 11/21/18 Hydrocodone Bitart/Apap 5-325 [Royal 5MG-325MG] 1 - 2 tab PO Q4H PRN PRN 5 Days #30 tab 11/24/18 The following prescriptions were given: Hydrocodone Bitart/Apap 5-325 [Royal 5MG-325MG] 1 - 2 tab PO Q4H PRN PRN 5 Days #30 tab PRN Reason: Pain Primary Care Physician: Camila Madsen DO [Primary Care Provider] - Test Results: Test results from this visit will be discussed in further detail at your follow-up appointment, if applicable. Please Follow Up With: Donny Romero MD - Please call [phone] to schedule an appointment. When: 7 days after your surgery. 11/24/18 1140 <Electronically signed by Donny Romero MD> Date Donny Romero MD CC: Camila Madsen DO Signed LIVER BIOPSY/WEDGE Observed: 11/24/2018 Status: F Source: [place] RESECTION 11:00 AM [facility] Patient: LINDA BELLAMY G : 1965 (53/F) Acct Num: [id number] Phys: Donny Romero MD Unit Num: [id number] Loc: [facility] Specimen: [id number] Received: 11/27/18714 Spec Type: LIVER BX TISSUES 1 TISSUES: A. Liver, NOS B. Gallbladder, NOS COMMENT A. Trichrome stain with matched control does not reveal fibrosis or cirrhosis. Iron stain with matched control does not reveal deposition of intraparenchymal iron. PAS with and without diastase and with matched controls do not reveal accumulation of abnormal proteins. Reticulin stain with matched control reveals a normal lymphatic architecture. Case has been reviewed in consultation with Dr. Rasmussen who concurs with the above diagnosis. IDC:RASHEED GROSS DESCRIPTION A - Received in fixative is one container labeled with the patient's name and designated liver biopsy. The specimen consists of an elongated fragment of brown soft tissue measuring 2 cm in length and 0.1 cm in diameter. The specimen is totally submitted in one cassette. B - Received is one container labeled with the patient's name and designated gallbladder. The specimen consists of a gallbladder measuring 8 cm in length and up to 4 cm in diameter. The external surface is pink- claire, smooth and glistening for the most part. Focally it is granular, hemorrhagic and contains cautery artifact. The gallbladder contains green-yellow mucoid bile. No stones are identified in the container or in the gallbladder. The mucosa is bile- stained and without any mass lesions. The gallbladder wall shows a few minute polypoid yellowish areas and may represent cholesterolosis. The gallbladder wall measures up to 0.1 cm in thickness. Die Reamer sections from the gallbladder and the cystic duct are submitted in one cassette. / SJ:jona 11/27/18 TC:3 CPT: 64522, 48263, 91248 x5 HEADER OPERATION: Laparoscopic cholecystectomy PRE-OP DIAGNOSIS: Polyp of gallbladder, right upper quadrant pain TISSUE SUBMITTED: A - Liver biopsy, B - Gallbladder MICROSCOPIC DESCRIPTION Slides are reviewed. MICROSCOPIC DIAGNOSIS A. Liver, core biopsy: No pathologic diagnosis. See comment. B. Gallbladder, cholecystectomy: Cholesterolosis and mild chronic cholecystitis. AM:jona 11/28/18 Signed Crescencio Mendoza DO 11/28/18 <signature on file> Performed By: #### PLIVB #### [facility] [address] [place] [address]. [place], [address] 12 LEAD ELECTROCARDIOGRAM Observed: 11/22/2018 Status: F Source: [place]ONE 3:34 PM [facility] [place] Cardiovascular Services [address] [place] [address] EKG - [facility] 11/21/18 1140 MR#: [id number] Acct: [id number] Name: LINDA BELLAMY G Rep #: [id number] : 1965 53 From: Lamont Cisneros MD Attending Dr: Donny Romero MD Status: PRE [facility] Ordering Dr: Brady Terry MD Date: 11/21/18 Location: [facility] Sex: F C Admitted: Test Reason : Blood Pressure : / mmHG Vent. Rate : 082 BPM Atrial Rate : 082 BPM P-R Int : 122 ms QRS Dur : 078 ms QT Int : 368 ms P-R-T Axes : 014 057 036 degrees QTc Int : 429 ms Normal sinus rhythm Normal ECG Confirmed by BLAYNE VAZQUEZ, LAMONT ([id number]), managing editor GIOVANA MCDONALD ([id number]) on 11/22/2018 3:33:54 PM Referred By: Donny Romero Confirmed By:LAMONT CISNEROS MD 11/22/18 1533 Date Lamont Cisneros MD CC: Donny Romero MD; Brady Terry MD; Camila Madsen DO Date Dictated: 11/21/18 1140 Date Transcribed: 11/21/18 1140 Dry Cans Back Tender: Signed OPERATIVE REPORT - Observed: 11/13/2018 Status: F Source: IONE ENDOSCOPY 8:[address] [facility] Medical Records Department [address] [place] [address] Operative Report - Endoscopy MR#: [id number] Acct: [id number] Name: LINDA BELLAMY G Rep #: [id number] : 1965 53 From: Donny Romero MD PCP: Camila Madsen DO Status: REG [facility] Patient Name: Linda Bellamy Procedure Date: 11/13/2018 8:11 AM Date of : 1965 Age: 53 Procedure: Upper GI endoscopy Indications: Abdominal pain in the right upper quadrant, Suspected Helicobacter pylori, Diarrhea, Nausea Providers: Donny Romero MD Referring MD: Donny Romero MD Medicines: See the Anesthesia note for documentation of the administered medications Patient Profile: This is a 53 year old female. Refer to note in patient chart for documentation of history and physical. Complications: No immediate complications. Procedure: Pre-Anesthesia Assessment: - Prior to the procedure, a History and Physical was performed, and patient medications and allergies were reviewed. The patient's tolerance of previous anesthesia was also reviewed. The risks and benefits of the procedure and the sedation options and risks were discussed with the patient. All questions were answered, and informed consent was obtained. Prior Anticoagulants: The patient has taken no previous anticoagulant or antiplatelet agents. ASA Grade Assessment: II - A patient with mild systemic disease. After reviewing the risks and benefits, the patient was deemed in satisfactory condition to undergo the procedure. After obtaining informed consent, the endoscope was passed under direct vision. Throughout the procedure, the patient's blood pressure, pulse, and oxygen saturations were monitored continuously. The gastroscope was introduced through the mouth, and advanced to the second part of duodenum. The upper GI endoscopy was accomplished without difficulty. The patient tolerated the procedure well. Scope In: 8:21:25 AM Scope Out: 8:23:55 AM Total Procedure Duration Time 0 hours 2 minutes 30 seconds Findings: The examined esophagus was normal. The entire examined stomach was normal. Biopsies were taken with a cold forceps for Helicobacter pylori testing. The examined duodenum was normal. No biopsies or other specimens were collected for this exam. Impression: - Normal esophagus. - Normal stomach. Biopsied. - Normal examined duodenum. No specimens collected. Recommendation: - Discharge patient to home. - Resume previous diet. - Continue present medications. - Await pathology results. - Repeat upper endoscopy at appointment to be scheduled for surveillance. - Return to my office in 1 week. Procedure Code(s): --- Professional --- 16997, Esophagogastroduodenoscopy, flexible, transoral; with biopsy, single or multiple Diagnosis Code(s): --- Professional --- R10.11, Right upper quadrant pain R19.7, Diarrhea, unspecified R11.0, Nausea CPT copyright 2017 [employer]. All rights reserved. The codes documented in this report are preliminary and upon care program director review may be revised to meet current compliance requirements. MD Donny Vasquez MD 11/13/2018 8:29:04 AM This report has been signed electronically. Number of Addenda: 0 Note Initiated On: 11/13/2018 8:11 AM 11/13/18828 Date Donny Romero MD Cosigner Signature: Date (if indicated) CC: Donny Romero MD; Camila Madsen DO Date Dictated: 11/13/18810 Date Transcribed: Dry Cans Back Tender: SHAUN Signed GASTRIC BIOPSY Observed: 11/13/2018 Status: F Source: [place] 8:30 AM [facility] [place] Patient: LINDA BELLAMY G : 1965 (53/F) Acct Num: [id number] Phys: Nick VAZQUEZ,Donny Unit Num: [id number] Loc: EN Specimen: [id number] Received: 11/13/18909 Spec Type: Gastric Bx TISSUES 1 TISSUES: Gastric mucous membrane COMMENT The results of immunohistochemistry for Helicobacter pylori will be reported separately (RF19-8). GROSS DESCRIPTION Received in fixative is one container labeled with the patient's name and designated antrum biopsy. The specimen consists of one irregular fragment of light claire soft tissue that measures 0.5 x 0.3 x 0.1 cm. The specimen is totally submitted in one cassette. / AM:jona 11/13/18 TC:3 CPT: 76498 HEADER OPERATION[place] PRE-OP DIAGNOSIS: Right upper quadrant abdomen pain, nausea, history of H. pylori, diarrhea TISSUE SUBMITTED: Antrum biopsy for H. pylori and path MICROSCOPIC DESCRIPTION Slides are reviewed. MICROSCOPIC DIAGNOSIS Gastric antrum, biopsy: Chronic gastritis, mild to moderate. See comment. AM:jona 11/15/18 Signed Crescencio Mendoza DO 11/15/18 <signature on file> Performed By: #### PGASB #### [facility] [address] [place], [place] [address]manjit. [place], [address] IMMUNOHISTOCHEMISTRY Observed: 11/13/2018 Status: F Source: [place] 8:30 AM [facility] [place] Patient: LINDA BELLAMY : 1965 (53/F) Acct Num: [id number] Phys: Nick VAZQUEZ,Donny Unit Num: [id number] Loc: EN Specimen: [id number] Received: 11/15/18749 Spec Type: IMMUNO TISSUES 1 TISSUES: Stomach, NOS SPECIMEN INFORMATION: Tissue Source: Antrum biopsy Clinical Info: Right upper quadrant abdomen pain, nausea, history H. pylori, diarrhea Specimen Number: [id number] CPT code: 05369 METHODOLOGY: Deparaffinized sections of prefer/formalin-fixed tissue or PAP/DQ stained slides are incubated with monoclonal/polyclonal antibodies/oligonucleotide probes. Localization is made via biotin free immunoperoxidase method. Appropriate controls are performed and reacted as expected. Results on target cell population are indicated in the following table: RESULTS: ANTIBODY / CLONE RESULT H Pylori (polyclonal) negative These tests were developed and their performance characteristics determined by [facility]. They may not have been cleared or approved by the U.S. Food and Drug Administration. The FDA has determined that such clearance or approval is not necessary. INTERPRETATION: Antrum, biopsy: Negative for Helicobacter pylori organisms. AM: 11/15/18 PHYSICIAN AND INSTITUTION [place] [id number] Signed Crescencio Mendoza, DO 11/15/18 <signature on file> Performed By: #### PIMM #### [facility] [address] [place], [place] [address]man[place]it. [place], [address] DISCHARGE SUMMARY Observed: 11/10/2018 Status: F Source: [place] 4:35 PM [facility] Medical Records Department [address] [place], [place] [address] [address] Discharge Summary 11/10/18 1631 MR#: [id number] Acct: [id number] Name: LINDA BELLAMY G Rep #: [id number] : 1965 52 From: Whitney Rdz PCP: Camila Madsen DO Status: REG [facility] Y Location: [facility] Discharge Summary: Discharge Date: 11/10/2018 Linda was seen for a massotherapy evaluation on 09/20/2018 with the diagnosis of neck pain. She was treated with three sessions of massage therapy consisting of moderate pressure soft tissue techniques, myofascial release and trigger point compression to her upper body with focus on her neck and shoulders. Linda responded well to the therapy by reporting decreased tension in her neck, shoulders, back and hips. Her goals for therapy were not met throughout the treatment sessions due to not scheduling more appointments. At this time this patient is being discharged from our care at [facility] facility. 11/10/18 1635 <Electronically signed by Whitney Rdz > Date Whitney Rdz Cosigner Signature (if applicable): Date CC: Whitney Rdz; Camila Madsen DO Signed SURGERY VISIT REPORT Observed: 11/08/2018 Status: F Source: [place] 8:43 AM [facility] [address] [place] [address] [address] [place], [place] [address] OFFICE VISIT Date of Service: 11/08/18 MR#: [id number] Acct: [id number] Name: LINDA BELLAMY Rep #: [id number] : 1965 Provider: Donny Romero MD Age/Sex: 52/F Location: [facility] Status: Signed Intake Vital Signs11/08/18 Height 5 ft 2.25 in 11/08/18 Weight: 117 lb 11 oz 11/08/18 Body Mass Index (BMI) 21.3 11/08/18 Blood Pressure 143/83 H 11/08/18 Blood Pressure Location Rt brachial Intake Visit Reasons: Gallbladder Polyps US [facility] 09/25 Chief Complaint: RUQ pain Cloth Finisher Required: No Is patient in pain?: No Allergies acetaminophen [From Percocet] Allergy (Verified 11/08/18 08:24) Other diazepam [From Valium] Allergy (Verified 11/08/18 08:24) Other oxycodone HCl [From Percocet] Allergy (Verified 11/08/18 08:24) Other Penicillins Allergy (Verified 11/08/18 08:24) Swelling zolpidem tartrate [From Ambien] Allergy (Verified 11/08/18 08:24) Other Medications Lorazepam [Ativan] 0.5 mg PO DAILY PRN PRN 01/18/14 [History Confirmed 11/08/18] Is last menstrual period known: No Post menopausal: Yes Patient : No PFSH Medical History Anxiety (Acute) Factor V Leiden (Acute) Gallbladder polyp (Acute) Surgical History History of breast augmentation (Acute) History of colonoscopy (Acute 06/2017) History of dilation and curettage (Acute 2004) Family History Sister Asthma Colon cancer Mother Diabetes Heart disease Hypertension CVA (cerebral vascular accident) Social History Smoking Status: Former smoker HPI HPI HPI: LINDA BELLAMY, is a 52 F who presents to the office today for evaluation of right upper quadrant abdominal pain that goes into her back as well as some constant nausea. In addition the patient is having some oily diarrhea at times the pain seems to be worse when she has pizza and pop other times is worse when she is just lying down. She equates the pain similar to labor pains. Patient has had a gallbladder ultrasound which showed the gallbladder wall to be 2 mm in thickness negative Delaney sign there is no para cholecystic fluid there were 2 gallbladder polyps the largest being 4 x 3 x 3 mm in size and a common bile duct was 1.4 mm. Patient has had some labs done she has a normal white count normal hemoglobin liver function tests are all within normal limits except for her total bilirubin is elevated at 1.30. Patient has had a history of having H. pylori in the past. ROS General General: Yes fatigue; no weight change, appetite, colon cancer, breast cancer or weakness HEENT HEENT: No difficulty swallowing, eye injury, eye surgery, swollen glands or hoarseness Endo Endocrine: No thyroid disease, diabetes mellitus, thyroid cancer, Hair loss, heat intolerance or cold intolerance Cardio Cardiovascular: No murmur, pacemaker, heart disease, atrial fibrillation, high blood pressure, heart attack, heart stent, palpitations, shortness of breat with exertion or chest pain Psych Psychiatric: Yes anxiety; no depression or hearing voices Resp Respiratory: No shortness of breath, No sleep apnea, No cough, No COPD, No asthma, No emphysema, No wheezing Gastro Gastrointestinal: Yes abdominal pain, Yes nausea or vomiting, Yes diarrhea, Yes constipation, No blood in stool, No acid reflux, No hemorrhoids, No ulcers, No gallbladder problem, No black,tarry stools Tarun Hematologic: No blood thinners, Yes blood disorders, No bleeding, No anemia, No blood clots Additional Details: Factor V Neuro Neurologic: No weakness Exam Const General: well developed, no acute distress, well hydrated Orientation: oriented to person, oriented to place, oriented to time [facility] [facility] Head: normocephalic, atraumatic Ears: external ears normal Mouth: moist mucous membranes Eyes Sclera: sclerae normal Pupils: normal by confrontation Neck Neck: no lymphadenopathy noted Neck mass: No Thyroid: symmetrical, thyroid normal Chest Chest palpation AND inspection: normal inspection of the chest Resp Effort AND Inspection: normal respiratory effort Auscultation: clear to auscultation bilaterally Percussion: percussion normal Cardio Rate: regular rate Rhythm: regular rhythm Heart Sounds: no murmurs GI Palpation: soft, tender, no masses, no hepatosplenomegaly Auscultation: normal bowel sounds Rectal Exam: other Other: Rectal exam deferred. Extrem General: no clubbing, cyanosis or edema, normal to inspection Assessment AND Plan Problems 1. Polyp of gallbladder K82.4 2. Right upper quadrant abdominal pain R10.11 3. Nausea R11.0 4. History of Helicobacter pylori infection Z86.19 5. Diarrhea, unspecified type R19.7 Plan I have discussed the above with the patient. I have offered the patient esophagogastroduodenoscopy for evaluation. I have explained the risks/benefits of the procedure and described the procedure. I have discussed the risks with the patient, including but not limited to: infection, bleeding, perforation of the GI tract requiring emergency surgery, inability to complete the procedure, injury to any internal organs, complications of anesthesia, etc. - the patient understands and agrees to proceed. I have answered all the patient's questions to the patient's satisfaction and the patient has no further questions. The patient has been given instructions for the colon cleansing preparation. If the patient's biopsy for H. pylori is negative and I see no ulcers that I am going to proceed with a laparoscopic cholecystectomy. My plan is to perform a laparoscopic cholecystectomy with intraoperative cholangiogram. The planned surgical procedure was discussed extensively with the patient. The risks, benefits, anticipated outcomes and possible complication were mentioned. My staff has also explained the procedure in understandable terms and the patient was given the option to take printed material concerning the planned procedure. The patient had the opportunity to ask questions concerning the planned procedure. The patient freely consents to the planned procedure. Coding Level of Care Code Off vis,new,level 3 Diagnoses Polyp of gallbladder K82.4 Right upper quadrant abdominal pain R10.11 Nausea R11.0 History of Helicobacter pylori infection Z86.19 Diarrhea, unspecified type R19.7 Diarrhea type: unspecified type 11/08/18 0843 <Electronically signed by Donny Romero MD> Date Donny Romero MD Cosigner Signature: Date (if applicable) CC: Camila Madsen DO MASSAGE THERAPY Observed: 10/25/2018 Status: F Source: IONE EVALUATION 1:03 PM [facility] [place] [facility] [address] [place] [address]. [address] [place] [address] Fax REHABILITATION SERVICES INITIAL EVALUATION MR#: [id number] Acct: [id number] Name: LINDA BELLAMY Rep #: [id number] : 1965 52 From: Whitney Rdz Referring DrRuslan: Camila Madsen DO Status: REG RCR Insurance: [facility] SELF PAY INSURANCE Massage Therapy Evaluation: Initial Evaluation Date: 09/20/2018 SUBJECTIVE: Linda is a 52 year old female who was referred to the [facility] facility for a massotherapy evaluation by Dr. Madsen with the diagnosis of neck pain. She presents today with the symptoms of neck pain with headaches. 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 She reports having a medical history of neck and back pain. She reports having minimal limitations during her daily activities currently. OBJECTIVE: Upon observation Linda has poor posture with her head forward and shoulders forward from the neutral position in sitting and standing. After examination and palpation I found her to have very high muscle tension and myofascial restrictions in her sub occipitals, trapezius, rhomboids, scalenes, thoracic paraspinals and pectoral muscles. Her cervical through lumbar paraspinals were also tight. The first treatment consisted of a one hour massage to her upper body with myofascial release, muscle stripping, trigger point compression techniques, and cervical manual traction. ASSESSMENT: I feel that Linda is a good candidate for massotherapy at this time. She had a favorable response to the first treatment with reduction in her muscle aches, pain and tension. She also had improvement in her cervical flexibility. Massage has been known to help Linda in the past. PLAN: The plan of care was reviewed with the patient. The patient is to be seen on as needed basis for a total of ten sessions with the recommendation of once every four weeks for a one hour treatment. Whitney Rdz LMT <Electronically signed by Whitney Rdz > 10/25/18 1303 CC: Camila Madsen DO RAGHU Signed COMPREHENSIVE METABOLIC Collected: 09/25/2018 Status: F Source: EUGENE BURTON 1:11 PM [facility] [place] [facility] Order Comment: PLEASE ADD D-BILL TO LABS DRAWN YESTERDAY 09/26/18 LOCATION: MG4-5-D TYPE CODE TESTS RESULT OUT OF RANGE REFERENCE UNITS LAB L501.0100 74-106 mg/dL Normal GLU 82 Result Comment: Please note revised GLUCOSE reference range effective 2017. LAB L501.1000 7-18 mg/dL Normal BUN 15 LAB L501.1100 0.55-1.02 mg/dL Normal CREAT,SERUM 0.74 Result Comment: The validity of the calculated GFR AND GFRAA in patients over 70 years has not been determined. Clinical correlation is essential. LAB L501.1110 >60 mL/min Normal EST GFR 86 Result Comment: Non- GFR Calc LAB L501.1115 >60 mL/min Normal EST GFR - AA 104 Result Comment: GFR Calc LAB L501.1300 10-20 RATIO High BUN/CRE 20.1 LAB L501.1500 6.4-8.2 g/dL T Normal PROT 7.1 LAB L501.1800 3.2-5.0 g/dL Normal ALB 3.7 LAB L501.1950 2.2-4.2 g/dL Normal GLOB 3.4 LAB L501.2000 0.9-2.4 RATIO Normal A/G 1.1 LAB L501.2200 8.5-10.1 mg/dL CA Normal 8.6 LAB L501.4100 15-37 U/L Normal AST 18 LAB L501.4305 45-117 U/L Normal ALK P 80 LAB L501.4405 13-56 U/L Normal ALT 23 LAB L501.4600 0.20-1.00 mg/dL High T BILI 1.50 LAB L501.5300 136-145 mmol/L NA Normal 144 LAB L501.5600 3.5-5.1 mmol/L K Normal 3.7 LAB L501.5900 98-107 mmol/L CL Normal 105 LAB L501.6100 21.0-32.0 mmol/L Normal CO2 28.0 LAB L501.6200 5-15 Normal GAP 11 Performed By: #### L500.4050, L501.4700 #### [facility] [address] [place], [place], [address] BILIRUBIN, DIRECT Collected: 09/25/2018 Status: F Source: EUGENE 1:11 PM [facility] [place] [facility] Order Comment: PLEASE ADD D-BILL TO LABS DRAWN YESTERDAY 09/26/18 LOCATION: MG4-5-D TYPE CODE TESTS RESULT OUT OF RANGE REFERENCE UNITS LAB L501.4700 0.00-0.30 mg/dL Normal D BILI 0.27 Performed By: #### L500.4050, L501.4700 #### [facility] [address] [place], [address] ABDOMEN LIMITED Observed: 09/25/2018 Status: F Source: IONE 12:14 PM [facility] [place] [facility] Imaging Services [address] [place] [address] Abdomen Limited MR#: [id number] Acct: [id number] Name: [facility] Rep #: [id number] : 1965 F 52 From: Dain Agrawal MD PCP: Camila Madsen DO Status: REG CLI Study: Abdomen Limited Date of Exam: 09/25/18 Exam# [id number] Ordering Dr: Camila Madsen DO STUDY: ABDOMINAL ULTRASOUND - RIGHT UPPER QUADRANT REASON FOR VISIT: Female, 52 years old. Abdominal pain. TECHNIQUE: Ultrasound evaluation of the right upper quadrant was performed with real-time and static bennett-scale imaging. TECHNICAL QUALITY: Adequate. COMPARISON: Comparison is made with prior examination dated March 22, 2014. FINDINGS: Liver: The liver measures 10.7 cm. There is normal echogenicity of the liver. The bile ducts are within normal limits. There is hepatic color flow. The direction of portal flow is hepatopetal. There is no demonstrated mass lesion. Gallbladder: Normal distended gallbladder. The gallbladder wall measures 2.0 mm. There is a negative sonographic Delaney's sign. There is no pericholecystic fluid. There are no gallstones. 2 gallbladder polyps are seen adherent to the gallbladder wall. The larger measures 4 mm x 3 mm x 3 mm. These are unchanged. Common Bile Duct (C.B.D.): The common bile duct measures 1.4 mm. Pancreas: Normal size of the head, body and tail of the pancreas. There is normal echogenicity of the pancreas. There is no demonstrated pancreatic mass or cyst. Right Kidney: Normal size of the right kidney. The right kidney measures 10.7 cm x 4.3 cm x 3.8 cm. Normal renal cortex. The right cortex measures 1.0 cm. There is no demonstrated renal mass or cyst. There is no right hydronephrosis. US/Abdomen Limited IMPRESSION: Stable, 2 small gallbladder polyps. Electronically Signed: Dain Agrawal MD at 9:53 EST Tel [phone], Service support , CC: Camila Madsen DO Dry Cans Back Tender: Signed URINALYSIS, EMPLOYEE Collected: 07/19/2018 Status: F Source: IONE 7:55 AM [facility] [place] [facility] TYPE CODE TESTS RESULT OUT OF RANGE REFERENCE UNITS LAB L400.3000 Yellow COLOR Normal Yellow LAB L400.3050 Clear Normal CLARITY Sl. Cloudy LAB L400.3200 Normal mg/dl Normal GLUCOSE, UR Normal LAB L400.3300 Negative mg/dL Normal BILIRUBIN URINE Negative LAB L400.3400 Negative mg/dl Normal KETONE UR Negative LAB L400.3465 1.002-1.030 Normal SP.GR. DIPSTX 1.020 LAB L400.3550 5.0 - 8.0 pH UR Normal 5.0 LAB L400.3600 Negative mg/dl PROT Normal DIPSTX Negative LAB L400.3700 Normal mg/dl Normal UROBILI Normal LAB L400.3750 Negative Normal NITRITE UR Negative LAB L400.3780 Negative /ul Normal OCCULT BLOOD-UR Negative LAB L400.3800 Negative /ul LEUK Normal ESTERASE Negative Performed By: #### L400.0100 #### [facility] [address] [place], [place], [address] CBC, EMPLOYEE Collected: 07/19/2018 Status: F Source: IONE 7:55 [facility] REPOSITORY TYPE CODE TESTS RESULT OUT OF RANGE REFERENCE UNITS LAB L100.1000 4.4-11.0 K/mm3 Normal WBC 4.7 LAB L100.1200 4.2-5.4 M/mm3 Normal RBC 4.56 LAB L100.1300 12.0-15.0 g/dl Normal HGB 13.6 LAB L100.1400 37-47 % Normal HCT 41.7 LAB L100.1500 81-99 fL Normal MCV 91.4 LAB L100.1600 27.0-32.0 pg Normal MCH 29.8 LAB L100.1700 32-36 g/gl Normal MCHC 32.6 LAB L100.1810 11.6-14.6 % Normal RDW CV 13.4 LAB L100.1820 35.1-43.9 fl High RDW SD 44.1 LAB L100.1900 150-450 K/mm3 Normal PLT 196 LAB L100.2000 6.2-12.0 fl Normal MPV 11.4 LAB L100.2110 47-70 % Normal NEUT% 51.0 LAB L100.2210 19-41 % Normal LY% 37.1 LAB L100.2310 0-10 % Normal MONO% 8.7 LAB L100.2410 0-5 % Normal EO% 3.0 LAB L100.2510 0-1 % Normal BASO% 0.2 LAB L100.2620 2.0-7.7 X10 3/uL Normal Absolute Neut 2.4 LAB L100.2720 0.83-4.51 X10 3/ul Normal Absolute Lymph 1.74 Performed By: #### L100.0200 #### [facility] [address] [place], [address] EMPLOYEE PROFILE Collected: 07/19/2018 Status: F Source: IONE 7:55 AM [facility] [place] [facility] TYPE CODE TESTS RESULT OUT OF RANGE REFERENCE UNITS LAB L501.0100 74-106 mg/dL Normal GLU 93 Result Comment: Please note revised GLUCOSE reference range effective 2017. LAB L501.1000 7-18 mg/dL Normal BUN 13 LAB L501.1100 0.55-1.02 mg/dL Normal CREAT,SERUM 0.72 Result Comment: The validity of the calculated GFR AND GFRAA in patients over 70 years has not been determined. Clinical correlation is essential. LAB L501.1110 >60 mL/min Normal EST GFR 90 Result Comment: Non- GFR Calc LAB L501.1115 >60 mL/min Normal EST GFR - AA 108 Result Comment: GFR Calc LAB L501.1300 10-20 RATIO Normal BUN/CRE 18.1 LAB L501.1400 2.6-6.0 mg/dL Normal URIC 3.3 Result Comment: The drugs N-Acetylcysteine and Metamizole may falsely depress this assay. LAB L501.1500 6.4-8.2 g/dL Normal T PROT 7.0 LAB L501.1800 3.2-5.0 g/dL Normal ALB 3.6 LAB L501.1950 2.2-4.2 g/dL Normal GLOB 3.4 LAB L501.2000 0.9-2.4 RATIO Normal A/G 1.1 LAB L501.2200 8.5-10.1 mg/dL Normal CA 8.5 LAB L501.2300 2.5-4.9 mg/dL Normal PHOS 4.1 LAB L501.4100 15-37 U/L Normal AST 24 LAB L501.4305 45-117 U/L Normal ALK P 66 LAB L501.4405 13-56 U/L Normal ALT 24 LAB L501.4600 0.20-1.00 mg/dL High T BILI 1.30 LAB L501.4700 0.00-0.30 mg/dL Normal D BILI 0.24 LAB L501.4900 200 mg/dL Normal CHOL 200 Result Comment: <200 mg/dL Desirable 200-240 mg/dL Borderline >240 mg/dL High Risk LAB L501.5000 mg/dL Normal TRIG 111 Result Comment: The drugs N-Acetylcysteine and Metamizole may falsely depress this assay. Serum Triglycerides Reference Interval Normal <150 mg/dL Borderline high 150 - 199 mg/dL High 200 - 499 mg/dL Very High > or = 500 mg/dL LAB L501.5300 136-145 mmol/L Normal NA 145 LAB L501.5600 3.5-5.1 mmol/L Normal K 4.0 LAB L501.5900 98-107 mmol/L High CL 108 LAB L501.6100 21.0-32.0 mmol/L Normal CO2 29.0 LAB L501.6200 5-15 Normal 8 GAP LAB L501.6400 mg/dL Normal HDL 57 Result Comment: The drugs N-Acetylcysteine and Metamizole may falsely depress this assay. Reference Range HDL <40 mg/dL Low HDL Cholesterol HDL >or= 60 mg/dL High HDL Cholesterol LAB L501.6475 Normal CHOL:HDL 3.50 LAB L501.6500 0-130 mg/dL Normal LDL 121 LAB L501.6600 5-40 mg/dL Normal VLDL 22 LAB L504.2610 84-246 U/L Normal LDH 173 Performed By: #### L500.2900 #### [facility] [address] [place], [place], [address] NICOTINE URINE DRUG Collected: 07/19/2018 Status: F Source: IONE SCREEN 7:55 AM [facility] [place] [facility] TYPE CODE TESTS RESULT OUT OF RANGE REFERENCE UNITS LAB L505.6250 TO BE Normal CONFIRMED Result Comment: CONFIRMATORY TESTING FOR ALL POSITIVE URINE DRUG SCREEN RESULTS WILL ONLY BE SENT OUT UPON PHYSICIAN ORDER. The results of Urine Drug Screen methods provide only preliminary analytical test results. A more specific alternate chemical method must be used in order to obtain a confirmed analytical result. Gas chromatography/mass spectrometery (GC/MS) is the preferred confirmatory method. Clinical consideration and professional judgement should be applied to any drug of abuse test result, particularly when preliminary positive results are used. LAB L505.6270 <200 ng/mL High COT DRG Positive SCREEN Result Comment: Cotinine is the first-stage metabolite of Nicotine. Performed By: #### L505.6240 #### [facility] [address] [facility] [place], [place], [address] EMPLOYEE PROFILE Collected: 07/19/2018 Status: F Source: IONE 7:55 AM [facility] [place] [facility] Order Comment: PLEASE ADD TSH TO LABS DRAWN 07/19/18 LOCATION: WG3-1-H 0905:C125 TYPE CODE TESTS RESULT OUT OF RANGE REFERENCE UNITS LAB L501.0100 74-106 mg/dL Normal GLU 93 Result Comment: Please note revised GLUCOSE reference range effective 2017. LAB L501.1000 7-18 mg/dL Normal BUN 13 LAB L501.1100 0.55-1.02 mg/dL Normal CREAT,SERUM 0.72 Result Comment: The validity of the calculated GFR AND GFRAA in patients over 70 years has not been determined. Clinical correlation is essential. LAB L501.1110 >60 mL/min Normal EST GFR 90 Result Comment: Non- GFR Calc LAB L501.1115 >60 mL/min Normal EST GFR - AA 108 Result Comment: GFR Calc LAB L501.1300 10-20 RATIO Normal BUN/CRE 18.1 LAB L501.1400 2.6-6.0 mg/dL Normal URIC 3.3 Result Comment: The drugs N-Acetylcysteine and Metamizole may falsely depress this assay. LAB L501.1500 6.4-8.2 g/dL Normal T PROT 7.0 LAB L501.1800 3.2-5.0 g/dL Normal ALB 3.6 LAB L501.1950 2.2-4.2 g/dL Normal GLOB 3.4 LAB L501.2000 0.9-2.4 RATIO Normal A/G 1.1 LAB L501.2200 8.5-10.1 mg/dL Normal CA 8.5 LAB L501.2300 2.5-4.9 mg/dL Normal PHOS 4.1 LAB L501.4100 15-37 U/L Normal AST 24 LAB L501.4305 45-117 U/L Normal ALK P 66 LAB L501.4405 13-56 U/L Normal ALT 24 LAB L501.4600 0.20-1.00 mg/dL High T BILI 1.30 LAB L501.4700 0.00-0.30 mg/dL Normal D BILI 0.24 LAB L501.4900 200 mg/dL Normal CHOL 200 Result Comment: <200 mg/dL Desirable 200-240 mg/dL Borderline >240 mg/dL High Risk LAB L501.5000 mg/dL Normal TRIG 111 Result Comment: The drugs N-Acetylcysteine and Metamizole may falsely depress this assay. Serum Triglycerides Reference Interval Normal <150 mg/dL Borderline high 150 - 199 mg/dL High 200 - 499 mg/dL Very High > or = 500 mg/dL LAB L501.5300 136-145 mmol/L Normal NA 145 LAB L501.5600 3.5-5.1 mmol/L Normal K 4.0 LAB L501.5900 98-107 mmol/L High CL 108 LAB L501.6100 21.0-32.0 mmol/L Normal CO2 29.0 LAB L501.6200 5-15 Normal 8 GAP LAB L501.6400 mg/dL Normal HDL 57 Result Comment: The drugs N-Acetylcysteine and Metamizole may falsely depress this assay. Reference Range HDL <40 mg/dL Low HDL Cholesterol HDL >or= 60 mg/dL High HDL Cholesterol LAB L501.6475 Normal CHOL:HDL 3.50 LAB L501.6500 0-130 mg/dL Normal LDL 121 LAB L501.6600 5-40 mg/dL Normal VLDL 22 LAB L504.2610 84-246 U/L Normal LDH 173 Performed By: #### L500.2900, L501.9520 #### [facility] [address] [place], [address] THYROID STIM HORMONE Collected: 07/19/2018 Status: F Source: IONE (TSH) 7:55 AM [facility] [place] [facility] Order Comment: PLEASE ADD TSH TO LABS DRAWN 07/19/18 LOCATION: [address] 09:[facility] TYPE CODE TESTS RESULT OUT OF RANGE REFERENCE UNITS LAB L501.9520 0.358-3.74 uIU/mL Normal TSH 2.76 Performed By: #### L500.2900, L501.9520 #### [facility] [address] [place], [place], [address] ALLERGIES ALLERGIES DATE TYPE / CODE NAME / CODE REACTION SEVERITY SOURCE 11/30/2018 Drug oxycodone Other Unknown [place] [facility] All[facility]/416 HCl/[id number]([facility] 890889(SNOM XNORM) Repository ED CT) 11/30/2018 Drug zolpidem Other Unknown [place] [facility] Allergy/416 tartrate/I105776 Hospital 006254(SNOM 147(RXNORM) Repository ED CT) 11/30/2018 Drug Penicillins/F001 Swelling Unknown [place] [facility] Allergy/416 949406(RXNORM) Hospital 830197(SNOM Repository ED CT) 11/30/2018 Drug diazepam/E468622 Other Unknown [place] [facility] Allergy/416 461(RXNORM) Hospital 461800(SNOM Repository ED CT) 11/09/2018 Drug acetaminophen/F0 Other Unknown [place] [facility] Allergy/416 57167971(RXNORM) Hospital 698735(SNOM Repository ED CT) ENCOUNTERS ENCOUNTERS ADMIT/DISCHARGE ACCOUNT ADMITTING ENCOUNTER LOCATION SOURCE NUMBER CLASS 12/09/2018/ [id number] Ambulatory BMSBuilding:B [place] 9 2 [facility] Repository 12/01/2018/ [id number] Emergency [place] 9 5 [facility] ing:ED Repository 11/30/2018/ [id number] Ambulatory BMSBuilding:B [place] 9 7 MS.[facility] Repository 11/24/2018/ [id number] Ambulatory [place] 9 3 [facility] ing:SDCRoom: Repository AC09 11/22/2018/ [id number] Ambulatory BMSBuilding:B [place] 9 6 MS.[facility] Repository 11/21/2018 [id number] Ambulatory BMSBuilding:W [place] 9 [facility] Repository 11/13/2018/ [id number] Ambulatory [place] 8 6 [facility] ing:ENRoom: Repository AC14 11/13/2018/ [id number] Ambulatory BMSBuilding:B [place] 8 3 MS.CF.[facility] Repository 11/10/2018/ [id number] Ambulatory [place] 8 1 [facility] ing:MASS Repository 11/08/2018/ [id number] Ambulatory BMSBuilding:B [place] 8 4 MS.[facility] Repository 09/25/2018 [id number] Ambulatory [place] 8 [facility] ing:OPUS Repository 09/25/2018 [id number] Ambulatory [place] 7 [facility] ing:LAB.FUTUR Repository E 07/19/2018 [id number] Ambulatory [place] 1 [facility] Hospital ing:EMPH Repository PAYERS PAYERS ENCOUNTER GUARANTOR PAYER SUBSCRIBER SOURCE 12/09/2018 LINDA G Primary Insurance:[facility] LINDA G [place] [id number] [facility] EIKLEBERRYDOB: [facility], 1928–1983 Louisa GUARDADO [id number] [address]Khj: Number: Repository [id number] (HP) Date:5873-93-36ZT [address] [address]IRWJLTBDT, [place] [address]TS: CHECK WEBSITE 12/09/2018 Secondary NOT GIVENUNK [place] Insurance:SELF PAY [facility] Number: Effective Repository Date:2018-12-09 12/01/2018 [facility] G Primary Insurance:[facility] G [place] [id number] [facility] EIKLEBERRYDOB: [facility] [id number] [place] [address]Xtr: Number: Repository [id number] (HP) Date:3286-18-31RN [address] [address]IQAFOLDJN, [place] [address]WP: CHECK WEBSITE 12/01/2018 Secondary NOT GIVENUNK [place] Insurance:SELF PAY [facility] Number: Effective Repository Date:2018-12-01 11/30/2018 LINDA G Primary Insurance:[facility] G [place] [id number] [facility]: [facility] [id number] [place] [address]Ocz: Number: Repository [id number] (HP) Date:4337-74-04BT [address] [address]WDLEIJDCZ, [place] [address]SU: CHECK WEBSITE 11/30/2018 Secondary NOT GIVENUNK [place] Insurance:SELF PAY [facility] Number: Effective Repository Date:2018-11-30 11/24/2018 LINDA G Primary Insurance:[facility] G [place] [id number] [facility]: [facility] [id number] [facility] [place] [address]Eta: Number: Repository [id number] (HP) Date:9814-94-69[address]X [address] [address]HOVEEMCZB, [place] [address]NC: CHECK WEBSITE 11/24/2018 Secondary NOT GIVENUNK [place] Insurance:SELF PAY [facility] Number: Effective Repository Date:2018-11-20 11/22/2018 LINDA G Primary Insurance:[facility] G [place] [id number] [facility] EIKLEBERRYDOB: [facility] [id number] [place] [address]Ioq: Number: Repository [id number] (HP) Date:7552-84-64EG [address] [address]AGGQSCVQ[address], [place] [address]OC: CHECK WEBSITE 11/22/2018 Secondary NOT GIVENUNK [place] Insurance:SELF PAY [facility] Number: Effective Repository Date:2018-11-13 11/21/2018 LINDA G Primary Insurance:[facility] G [place] [id number] [facility] EIKLEBERRYDOB: [address]12[address] [address]Dpw: Number: Repository [id number] (HP) Date:8503-08-41HN [address] [address], [place] [address]IR: CHECK WEBSITE 11/21/2018 Secondary NOT GIVENUNK [place] Insurance:SELF PAY [facility] Number: Effective Repository Date:2018-11-21 11/13/2018 LINDA G Primary Insurance:[facility] G [place] [id number] [facility] EIKLEBERRYDOB: [address] [place] [address]Gxq: Number: Repository [id number] (HP) Date:6441-34-04UB [address] [address]MSKFL[place] [place] [address]WP: CHECK WEBSITE 11/13/2018 Secondary NOT GIVENUNK [place] Insurance:SELF PAY [facility] Number: Effective Repository Date:2018-11-08 11/13/2018 LINDA G Primary Insurance:[facility] G [place] [id number] [facility] EIKLEBERRYDOB: [address] [place] [address]Hzo: Number: Repository [id number] (HP) Date:4854-92-25LS [address] [address]MTVATIILJ, [place] [address]YL: CHECK WEBSITE 11/13/2018 Secondary NOT GIVENUNK [place] Insurance:SELF PAY [facility] Number: Effective Repository Date:2018-11-13 11/10/2018 LINDA G Primary Insurance:[facility] G [place] [id number] [facility] EIKLEBERRYDOB: [facility] 9254-06-99BNP [place] [address]Tea: Number: Repository [id number] (HP) Date:5886-66-98HZ [address] [address]UYGTNTVSU, [place] [address]ID: CHECK WEBSITE 11/10/2018 Secondary NOT GIVENUNK [place] Insurance:SELF PAY [facility] Number: Effective Repository Date:2018-07-21 11/08/2018 LINDA G Primary Insurance:[facility] G [place] [id number] [facility] EIKLEBERRYDOB: [facility] [id number] [facility] [place] [address]Pzj: Number: Repository [id number] (HP) Date:2143-20-29[address] [address], [place] [address]EC: CHECK WEBSITE 11/08/2018 Secondary NOT GIVENUNK [place] Insurance:SELF PAY [facility] Number: Effective Repository Date:2018-11-03 09/25/2018 LINDA Primary Insurance:[facility] [place] [id number] [facility] EIKLEBERRYDOB: [facility] [id number] [facility] [place] [address]Cry: Number: Repository [id number] (HP) Date:9438-46-61[address] [address], [place] [address]UU: CHECK WEBSITE 09/25/2018 Secondary NOT GIVENUNK [place] Insurance:SELF PAY [facility] Number: Effective Repository Date:2018-09-25 09/25/2018 LINDA Primary Insurance:[facility] [place] [id number] [facility] EIKLEBERRYDOB: [facility] [id number] [address]Jql: Number: Repository [id number] () Date:5542-28-65[address] [address], [place] [address]OY: CHECK WEBSITE 09/25/2018 Secondary NOT GIVENUNK [place] Insurance:SELF PAY [facility] Number: Effective Repository Date:2018-09-25 07/19/2018 [facility] Primary NOT GIVENUNK [place] [id number] Insurance[facility] [address]Kkh: Number: Effective Repository Date:2018-07-19 ()
== END 2018-12-01 21:24 | disposition home or self-care (01) ==
PROVIDERS: Emergency Provider Emergency Medicine; Family Provider Family Medicine; PCP Family Medicine
DX: R10.11 Right upper quadrant pain (principal); Z98.890 Other specified postprocedural states; Z79.891 Long term (current) use of opiate analgesic; Z79.899 Other long term (current) drug therapy
CPT/HCPCS: 74177; 80048; 80076; 83690; 85025; 99285; Q9967; A4216

== ENCOUNTER → 2019-02-13 17:45 | Outpatient (CLI) | payer OTHER, SELFPAY ==
[2019-02-13 14:17] VITALS: BMI 21.4
== END ==
PROVIDERS: Family Provider Family Medicine; PCP Family Medicine; Referring Provider Nurse Practitioner Women's Health; Visit Provider Nurse Practitioner Women's Health
DX: N76.0 Acute vaginitis (principal)
CPT/HCPCS: 87070; 87205

== ENCOUNTER → 2019-02-19 | Outpatient (CLI) | payer OTHER, SELFPAY ==
[2019-02-13 14:17] VITALS: BMI 21.4
[2019-02-19 12:44] LABS: Absolute Lymphocyte Count 1.14 X10^3/ul (0.83-4.51); Absolute Neutrophil Count 2.4 X10^3/uL (2.0-7.7); Basophil# 0.01 X10^3/uL; Basophil% 0.2 % (0-1); Eosinophil# 0.12 X10^3/uL; Eosinophils% 2.7 % (0-5); Hematocrit 44.6 % (37-47); Hemoglobin 14.6 g/dl (12.0-15.0); Lymphocyte # 1.14 X10^3/ul (4.0); Lymphocyte % 25.9 % (19-41); Mean Corp Hgb Conc 32.7 g/gl (32-36); Mean Corpuscular Hgb 29.1 pg (27.0-32.0); Mean Platelet Vol. 11.9 fl (6.2-12.0); Monocyte# 0.74 X10^3/uL; Monocyte% 16.8 % (0-10); Neutrophil % 54.4 % (47-70); Platelet Count 186 K/mm3 (150-450); RBC Distribution Width CV 13.9 % (11.6-14.6); RBC Distribution Width SD 44.9 fl (35.1-43.9); Red Blood Count 5.01 M/mm3 (4.2-5.4); White Blood Count 4.4 K/mm3 (4.4-11.0)
[2019-02-19 12:53] LABS: POSITIVE COUNT NO; POSITIVE DIFFERENTIAL NO; POSITIVE MORPHOLOGY NO
== END | disposition home or self-care (01) ==
LOC: MTLAB 10:52
PROVIDERS: Family Provider Family Medicine; PCP Family Medicine; Referring Provider Family Medicine; Visit Provider Family Medicine
DX: R05 Cough (principal); R50.9 Fever, unspecified
CPT/HCPCS: 36415; 85025

== ENCOUNTER → 2019-02-22 | Outpatient (CLI) | payer OTHER, SELFPAY ==
[2019-02-13 14:17] VITALS: BMI 21.4
--- NOTE | 2019-02-22 16:49 | CT_ITS ---
STUDY: CT ABDOMEN AND PELVIS WITH CONTRAST REASON FOR EXAM: Female, 53 years old. PT STATED FEVER, RECTAL BLEEDING X 11 DAYS RADIATION DOSAGE (If Supplied By Facility): CTDIvol = ( 7.79 ) mGy, DLP = ( 270.85 ) mGycm TECHNIQUE: Transaxial images were obtained from the dome of the diaphragm to the symphysis pubis with oral contrast. 100 IV/Oral Isovue 300 was administered. Sagittal and coronal images were reconstructed. Individualized dose optimization techniques were used for this CT. COMPARISON: None. FINDINGS: The visualized lung bases are unremarkable. The visualized portions of the heart are within normal limits. Normal liver. There is non-visualization of the gallbladder, which may be secondary to either contraction or a prior cholecystectomy. No biliary ductal dilatation. Normal spleen. Normal pancreas. Normal bilateral adrenal glands. Normal right kidney. Normal left kidney. The stomach is contracted otherwise unremarkable. Normal small intestine. The colon is unobstructed. I do note that there is inflammatory stranding of fat in the perirectal region without a defined abscess. Consider proctitis The appendix is visualized and appears normal. Moderate atherosclerosis of the aorta noted. Normal inferior vena cava. Normal retroperitoneum. Normal urinary bladder. The uterus is normal in size. Bilateral tubal occlusion devices (?essure devices) noted. Normal abdominal wall. Normal osseous structures. CT/Abdomen/Pelvis WITH Contrast IMPRESSION: Perirectal inflammatory changes noted without a defined abscess. Consider proctitis. Electronically Signed: Poornima Hu MD at 19:22 EDT , Service support ,
== END | disposition home or self-care (01) ==
LOC: CT 16:49
PROVIDERS: Family Provider Family Medicine; PCP Family Medicine; Referring Provider Family Medicine; Visit Provider Family Medicine
DX: K57.92 Diverticulitis of intestine, part unspecified, without perforation or abscess without bleeding (principal)
CPT/HCPCS: 74177; Q9967

== ENCOUNTER 2019-03-01 06:23 | Day surgery (SDC) | payer OTHER, SELFPAY ==
[2019-02-27 08:05] VITALS: BMI 21.4
--- NOTE | 2019-02-27 08:34 | HP_ITS ---
Intake Vital Signs 02/27/19 Body Mass Index (BMI) 21.4 02/27/19 Height 5 ft 1 in 02/27/19 Weight: 115 lb 02/27/19 Body Mass Index (BMI) 21.7 02/27/19 Blood Pressure 126/82 H 02/27/19 Blood Pressure Location Lt brachial 02/27/19 Blood Pressure Position Sitting 02/27/19 Respiratory Rate 18 02/27/19 Pulse Rate 86 Intake Visit Reasons: proctitis discuss flex sig Chief Complaint: vaginal burning,stomach cramping, painful urination Budder Required: No Is patient in pain?: No Allergies diazepam [From Valium] Allergy (Verified 02/27/19 08:04) Other oxycodone HCl [From Percocet] Allergy (Verified 02/27/19 08:04) Other Penicillins Allergy (Verified 02/27/19 08:04) Swelling zolpidem tartrate [From Ambien] Allergy (Verified 02/27/19 08:04) Other Medications Lorazepam [Ativan] 0.5 mg PO DAILY PRN PRN 01/18/14 [History Confirmed 02/27/19] Clobetasol Propionate/Emoll [Clobetasol Emollient 0.05% Crm] 15 gm TP PRN PRN 11/21/18 [History Confirmed 02/27/19] prednisone 20 mg tablet 20 mg PO BID #8 tab 02/27/19 [Rx Confirmed 02/27/19] prednisone 20 mg tablet 20 mg PO TID 02/27/19 [History Confirmed 02/27/19] PFSH Medical History Anxiety (Acute) Factor V Leiden (Acute) Gallbladder polyp (Acute) Surgical History History of breast augmentation (Acute) History of colonoscopy (Acute ~06/2017) History of dilation and curettage (Acute ~2004) S/P laparoscopic cholecystectomy (Acute) Family History Sister Asthma Colon cancer Mother Diabetes Heart disease Hypertension CVA (cerebral vascular accident) Social History Smoking Status: Former smoker alcohol intake: current alcohol intake frequency: a few times a week Female Reproductive History Menstrual Ab induced: 0 Ab spontaneous: 1 Ectopics: 0 HPI HPI HPI: TAMICA EIKLEBERRY, is a 53 F who presents to the office today for HPI HPI Surgical H&P: Yes HPI: TAMICA TAPIA is a 53 F who presents to the office today for proctitis/flexible skin sigmoidoscopy. Patient states on February 12 she started having diffuse abdominal aching which has improved over time. Patient also had bright red blood per rectum with every bowel movement and was having multiple bowel movements daily patient states about 10-15. Around this time patient was also diagnosed with a UTI and placed on antibiotics for this. She was also given some Cipro Flagyl for possible diverticulitis. Patient states she has had a decreased appetite also her stomach did not tolerate the antibiotics well and she was unable to take them for only a few days. patient also complains of a lot of gassiness and some mucus per her rectum. Patient states she has had a colonoscopy 5 years ago which was negative by Dr. Johnson. Patient did have a CT abdomen pelvis which showed possible proctitis. Patient's PCP did give her prednisone 20 mg p.o. 3 times daily times 5 days currently she is on her last day. Patient reports decreased gassiness and decreased urgency but she still does have blood with her bowel movements however there is only 3-4 bowel movements daily. Patient states her stools are mostly soft she did have diarrhea this morning. Patient's maternal grandfather did have colon cancer in his 80s. She denies any family history of UC or Crohn's disease. Patient did have a CBC on 02/20/19 with a hemoglobin of 14 at that time. ROS General General: Yes fatigue; no weight change, appetite, colon cancer, breast cancer or weakness HEENT HEENT: No difficulty swallowing, eye injury, eye surgery, swollen glands or hoarseness Endo Endocrine: No thyroid disease, diabetes mellitus, thyroid cancer, Hair loss, heat intolerance or cold intolerance Cardio Cardiovascular: No murmur, pacemaker, heart disease, atrial fibrillation, high blood pressure, heart attack, heart stent, palpitations, shortness of breat with exertion or chest pain Psych Psychiatric: Yes anxiety; no depression or hearing voices Resp Respiratory: No shortness of breath, No sleep apnea, No cough, No COPD, No asthma, No emphysema, No wheezing Gastro Gastrointestinal: Yes abdominal pain, Yes nausea or vomiting, Yes diarrhea, Yes constipation, No blood in stool, No acid reflux, No hemorrhoids, No ulcers, No gallbladder problem, No black,tarry stools Tarun Hematologic: No blood thinners, Yes blood disorders, No bleeding, No anemia, No blood clots Additional Details: Factor V Neuro Neurologic: No weakness Exam Const General: cooperative, comfortable, no acute distress Resp Effort & Inspection: normal respiratory effort Cardio Rate: regular rate Heart Sounds: no murmurs GI Inspection: non-distended Palpation: soft, no guarding, tender (BLQ, no PS) Assessment & Plan Problems 1. Proctitis K62.89 2. BRBPR (bright red blood per rectum) K62.5 Plan I have discussed the above with the patient. Patient is currently on her last day of prednisone 60 mg for a total of 5 days. Will extend the prednisone with a taper and have her do prednisone 40 mg x 3 days then 20 mg x 2 days. Discussed with the patient this is proven to be inflammatory bowel disease would be referring her to a title i teacher for further management. I have offered the patient flexible sigmoidoscopy with biopsy for evaluation with MAC anesthesia. I have explained the risks/benefits of the procedure and described the procedure. I have discussed the risks with the patient, including but not limited to: infection, bleeding, perforation of the GI tract requiring emergency surgery, inability to complete the procedure, injury to any internal organs, complications of anesthesia, etc. - the patient understands and agrees to proceed. I have answered all the patient's questions to the patient's satisfaction and the patient has no further questions. The patient has been given instructions for the colon cleansing preparation.-2 fleets enemas the night before and 2 in the morning. Yareli Lazar M.D. Pager: [phone] [facility] [address] [place] [address], [facility], [address] [place] [address] Office: [phone] Medications New: prednisone Take 1 tab BID x 3 days then take 1 tab daily x 2 days 20 mg PO BID 8 tabs 0RF Plan Detail Follow Up will schedule flex sig with bx for 03/01 Coding Level of Care Code Off vis,new,level 3 Diagnoses Proctitis K62.89 BRBPR (bright red blood per rectum) K62.5 Addendum: 03/01/1219 7:20 AM Patient seen and examined. Patient reports less gassiness on the steroids but she is still having bowel movements with bright red blood as well as clots.
--- NOTE | 2019-03-01 | COLBX_PTH ---
PATIENT: TAMICA TAPIA LOC: EN U#:[id number] AGE/SX: 53/F ROOM: RE03/01/[address]: Dr. Yareli Lazar MD : 1965 BED: DIS: 03/01/2019 SPEC #: [id number] RECD: 03/01/19 09:09 STATUS: LEBRON DAI #: [id number] SARTHAK: 03/01/19 00:[address]: Yareli Lazar DEPT: SURGICAL PATHOLOGY RECD BY: Pee Orta ENTERED: 03/01/19 14:24 SP TYPE: COLON BX EDITA DR: Dr. Camila Madsen DO Tissues: A - Descending colon B - COLON BIOPSY C - Sigmoid colon biopsy D - Rectum, NOS E - Rectum, NOS Procedures: Surgery Specimen Level IV HEADER OPERATION: Flexible sigmoidoscopy PRE-OP DIAGNOSIS: Rectal bleeding, proctitis TISSUE SUBMITTED: A - Descending colon polyp, B - Random biopsy descending colon, C - Sigmoid biopsy, D - Rectal polyp biopsy (5), E - Random rectal biopsy MICROSCOPIC DIAGNOSIS A. Descending colon polyp, biopsy: Fragments of tubular adenoma. B. Descending colon, random biopsy: No pathologic diagnosis. C. Sigmoid colon, biopsy: No pathologic diagnosis. D. Rectal polyp, biopsy: Fragments of hyperplastic polyp. E. Rectum, random biopsy: Chronic active colitis pattern of injury. See comment. AM:jona 03/02/19 COMMENT E. There is focal cryptitis, mucosal ulceration. The lamina propria is banded by chronic inflammatory cells. No granulomas are identified. Clinical correlation is necessary. Case has been reviewed in consultation with Dr. Rasmussen who concurs with the above diagnosis. IDC:SJ MICROSCOPIC DESCRIPTION Slides are reviewed. GROSS DESCRIPTION A - Received in fixative is one container labeled with the patient's name and designated descending colon polyp. The specimen consists of multiple polypoid fragments of light claire soft tissue that in aggregate measure 1 x 0.4 x 0.3 cm. The specimen is totally submitted in one cassette. B - Received in fixative is one container labeled with the patient's name and designated random biopsy descending colon. The specimen consists of multiple irregular fragments of light claire soft tissue that in aggregate measure 0.3 x 0.1 x 0.1 cm. The specimen is totally submitted in one cassette. C - Received in fixative is one container labeled with the patient's name and designated sigmoid biopsy. The specimen consists of multiple irregular fragments of light claire soft tissue that in aggregate measure 0.3 x 0.2 x 0.1 cm. The specimen is totally submitted in one cassette. D - Received in fixative is one container labeled with the patient's name and designated rectal polyp biopsy. The specimen consists of multiple irregular fragments of light claire soft tissue that in aggregate measure 2 x 0.5 x 0.1 cm. The specimen is totally submitted in one cassette. Received in fixative is one container labeled with the patient's name and designated random rectal biopsy. The specimen consists of two irregular fragments of light claire soft tissue that in aggregate measure 0.6 x 0.3 x 0.1 cm. The specimen is totally submitted in one cassette. / SJ:rg 03/01/19 TC:2 CPT: 45085 x5
[2019-03-01 06:55] VITALS: BP 131/77; PULSE 71; RESP 14; TEMP 37.3; O2SAT 100; BMI 20.4
[2019-03-01 08:06] VITALS: BP 108/67; BP 131/77; PULSE 82; RESP 16; TEMP 36.3; O2SAT 99
[2019-03-01 08:10] VITALS: BP 116/85; BP 131/77; PULSE 74; RESP 16; O2SAT 96
--- NOTE | 2019-03-01 08:10 | OP.ENDO_ITS ---
03/01/2019 Camila Madsen [address] [facility] [place] [address] [place] [address] Re : Flexible Sigmoidoscopy procedure for [facility] Dear Dr. Madsen This procedure was performed on February. My impressions and recommendations are as follows: Impressions : - One 5 to 7 mm polyp in the descending colon, removed with a hot snare. Resected and retrieved. - Five less than 5 mm polyps in the rectum, removed with a cold biopsy forceps. Resected and retrieved. - Diverticulosis in the sigmoid colon. - Biopsies were taken with a cold forceps for histology in the rectum, in the sigmoid colon and in the descending colon. Recommendations : - Discharge patient to home. My findings are described in the full procedure note, which is enclosed. If I can be of further assistance, please feel free to contact me at Doctor phone number(s): , Work: . Sincerely, MD Yareli Wilson MD 03/01/2019 8:10:11 AM This report has been signed electronically.
[2019-03-01 08:15] VITALS: BP 129/76; BP 131/77; PULSE 74; RESP 16; O2SAT 96
[2019-03-01 08:21] VITALS: BP 118/84; BP 131/77; PULSE 75; RESP 16; TEMP 36.1; O2SAT 98
[2019-03-01 08:33] VITALS: BP 131/77
== END 2019-03-01 08:49 | disposition home or self-care (01) ==
LOC: EN 06:23 → AC 06:24
PROVIDERS: Family Provider Family Medicine; PCP Family Medicine; Referring Provider Family Medicine; Visit Provider Surgery
PROC: 0DJD8ZZ Inspection of Lower Intestinal Tract, Via Natural or Artificial Opening Endoscopic (ICD-10-PCS; CPT 45330; principal; 2019-03-01 07:25)
DX: D12.4 Benign neoplasm of descending colon (principal); K62.1 Rectal polyp; K52.9 Noninfective gastroenteritis and colitis, unspecified; K57.30 Diverticulosis of large intestine without perforation or abscess without bleeding; F41.9 Anxiety disorder, unspecified; D68.51 Activated protein C resistance; Z80.0 Family history of malignant neoplasm of digestive organs; Z87.891 Personal history of nicotine dependence; Z79.52 Long term (current) use of systemic steroids; Z79.899 Other long term (current) drug therapy
CPT/HCPCS: 45331; 88305; J7120

== ENCOUNTER → 2019-03-09 | Outpatient (CLI) | payer OTHER, SELFPAY ==
[2019-03-01 06:55] VITALS: BMI 20.4
--- NOTE | 2019-03-09 13:55 | RAD_ITS ---
STUDY: X-RAY - RIGHT FOOT CLINICAL: Female, 53 years old. Pain TECHNIQUE: 5 view(s) of the foot. COMPARISON: None. FINDINGS: Normal talus, calcaneus, and tarsal bones. Normal visualized subtalar, talonavicular, calcaneocuboid, tarsal and tarsometatarsal articulations. Normal metatarsi. Normal metatarsophalangeal joint of the great toe. Normal tibial and fibular sesamoid bones. Normal interphalangeal joint of the great toe. Normal phalanges of the great toe. Normal second through fifth metatarsophalangeal joints. Normal interphalangeal joints and phalanges of the lesser toes. The soft tissue structures are unremarkable. RAD/Foot min 3 Views IMPRESSION: Normal x-ray examination of the foot. Electronically Signed: Sihva Shafer MD at 14:24 EDT , Service support ,
== END | disposition home or self-care (01) ==
LOC: RAD 13:38
PROVIDERS: Family Provider Family Medicine; PCP Family Medicine; Referring Provider Podiatrist Foot & Ankle Surgery; Visit Provider Podiatrist Foot & Ankle Surgery
DX: M21.611 Bunion of right foot (principal); M19.071 Primary osteoarthritis, right ankle and foot
CPT/HCPCS: 73630

== ENCOUNTER → 2019-12-13 | Outpatient (CLI) | payer OTHER, SELFPAY ==
--- NOTE | 2019-12-13 15:11 | RAD_ITS ---
STUDY: X-RAY - ABDOMEN/PELVIS REASON FOR EXAM: Female, 54 years old. Patient states last night had nausea, vomitting and cramping. Has a hx of IBS and Ulcerative Colitis. TECHNIQUE: Single AP view of the abdomen / pelvis. COMPARISON: None. FINDINGS: Normal visualized lung bases. There is an unremarkable bowel gas pattern. There is no demonstrated free abdominal air. The visualized liver, spleen and kidneys are grossly normal in size and morphology. Essure devices are seen in the pelvis. Normal visualized osseous structures. RAD/Abdomen Single View IMPRESSION: Essure devices seen in the pelvis. There is no evidence of ileus or obstruction. Electronically Signed: Bay Zambrano MD at 23:21 EST , Service support ,
== END | disposition home or self-care (01) ==
LOC: RAD 15:10
PROVIDERS: PCP Family Medicine; Referring Provider Family Medicine; Visit Provider Family Medicine
DX: R10.9 Unspecified abdominal pain (principal)
CPT/HCPCS: 74018

== ENCOUNTER → 2020-01-28 | Outpatient (CLI) | payer OTHER, SELFPAY ==
--- NOTE | 2020-01-28 | IMM_PTH ---
PATIENT: TAMICA TAPIA LOC: [facility] U#:[id number] AGE/SX: 54/F ROOM: RE01/28/[address]: Dr. Brady aBrrios MD : 1965 BED: DIS: 01/28/2020 SPEC #: [id number] RECD: 01/30/20 14:41 STATUS: LEBRON REQ #: [id number] SARTHAK: 01/28/20 00:[address]: Brady Barrios DEPT: IMMUNOHISTOCHEMISTRY RECD BY: Valorie Garcia ENTERED: 01/30/20 14:47 SP TYPE: IMMUNO OTHR DR: Dr. Camila Madsen, DO Tissues: Skin of chest Procedures: Dell-1 (initial) CK5-6 (add) P40 (add) S-100 (add) PHYSICIAN & INSTITUTION [place] [id number] SPECIMEN INFORMATION: Tissue Source: Skin lesion right upper chest Clinical Info: Irritated skin lesion pigmented right upper chest Specimen Number: [id number] CPT code: 10772, 11323 x3 METHODOLOGY: Deparaffinized sections of prefer/formalin-fixed tissue or PAP/DQ stained slides are incubated with monoclonal/polyclonal antibodies/oligonucleotide probes. Localization is made via biotin free immunoperoxidase method. Appropriate controls are performed and reacted as expected. Results on target cell population are indicated in the following table: RESULTS: ANTIBODY / CLONE RESULT S-100 (4C4.9) negative MART-1 (A-103) negative P40 (BC28) positive CK5-6 (D5 & 1684) positive These tests were developed and their performance characteristics determined by [facility]. They may not have been cleared or approved by the U.S. Food and Drug Administration. The FDA has determined that such clearance or approval is not necessary. The above immunohistochemical/dualISH markers are ordered and reviewed by the Pathologist. INTERPRETATION: Skin lesion right upper chest, excisional biopsy: Consistent with inflamed actinic keratosis. RASHEED:jona 01/31/20
--- NOTE | 2020-01-28 15:57 | LES_PTH ---
PATIENT: TAMICA TAPIA LOC: [facility] U#:[id number] AGE/SX: 54/F ROOM: RE01/28/[address]: Dr. Brady Barrios MD : 1965 BED: DIS: 01/28/2020 SPEC #: [id number] RECD: 01/28/20 17:38 STATUS: LEBRON REJosey #: [id number] SARTHAK: 01/28/20 15:[address]: Brady Barrios DEPT: SURGICAL PATHOLOGY RECD BY: Chip Douglas ENTERED: 01/29/20 08:46 SP TYPE: Lesion OTHR DR: Dr. Camila Madsen, DO Tissues: Skin of chest Procedures: Surgery Specimen Level IV HEADER OPERATION: Excision skin lesion 0.8 x 2.5 cm PRE-OP DIAGNOSIS: Irritated skin lesion pigmented right upper chest skin TISSUE SUBMITTED: Skin lesion MICROSCOPIC DIAGNOSIS Right upper chest skin lesion, excisional biopsy: Inflamed actinic keratosis with mild to moderate atypia. Negative for malignancy. SJ:jona 01/30/20 COMMENT Immunohistochemistry ([id number]) supports the above diagnosis. Case has been reviewed in consultation with Dr. Mendoza who concurs with the above diagnosis. IDC:AM MICROSCOPIC DESCRIPTION Slides are reviewed. GROSS DESCRIPTION Received is one container labeled with the patient's name and not further designated. The specimen consists of an ellipse of light claire excised skin measuring 2.2 x 0.5 x 0.2 cm. The specimen is inked, serially sectioned totally submitted in one cassette. / AM:jona 01/29/20 TC: CPT: 57410
== END | disposition home or self-care (01) ==
LOC: LABSPEC 01-29 08:12
PROVIDERS: PCP Family Medicine; Visit Provider Otolaryngology
DX: L98.9 Disorder of the skin and subcutaneous tissue, unspecified (principal)
CPT/HCPCS: 88305; 88341; 88342

== ENCOUNTER → 2020-01-28 | Outpatient (CLI) | payer OTHER, SELFPAY | END | disposition home or self-care (01) | LOC: LABSPEC 01-29 09:21 | PROVIDERS: PCP Family Medicine; Referring Provider Otolaryngology; Visit Provider Otolaryngology | DX: L98.9 Disorder of the skin and subcutaneous tissue, unspecified (principal) ==

== ENCOUNTER → 2020-03-29 | Outpatient (CLI) | payer OTHER, SELFPAY ==
[2020-03-29 10:36] LABS: Absolute Lymphocyte Count 1.35 X10^3/uL (0.83-4.51); Absolute Neutrophil Count 4.3 X10^3/uL (2.0-7.7); Basophil# 0.05 X10^3/uL; Basophil% 0.8 % (0-1); Eosinophil# 0.32 X10^3/uL; Eosinophils% 4.8 % (0-5); Hematocrit 42.5 % (37-47); Hemoglobin 13.8 g/dL (12.0-15.0); Lymphocyte # 1.35 X10^3/ul (4.0); Lymphocyte % 20.5 % (19-41); Mean Corp Hgb Conc 32.5 g/dL (32-36); Mean Corpuscular Hgb 29.9 pg (27.0-32.0); Mean Platelet Vol. 11.1 fl (6.2-12.0); Monocyte# 0.53 X10^3/uL; NRBC Flagged by Analyzer 0 % (0-5); Neutrophil # 4.34 X10^3/uL (2.7-7.7); Neutrophil % 65.7 % (47-70); Platelet Count 229 K/mm3 (150-450); RBC Distribution Width CV 13.7 % (11.6-14.6); RBC Distribution Width SD 46.4 fl (35.1-43.9); Red Blood Count 4.62 M/mm3 (4.2-5.4); White Blood Count 6.6 K/mm3 (4.4-11.0)
[2020-03-29 10:54] LABS: ALB/GLOB Ratio 0.8 RATIO (0.9-2.4); AST(SGOT) 18 U/L (15-37); Alanine Aminotransfer ALT/SGPT 22 U/L (13-56); Albumin, Serum 3.4 g/dL (3.2-5.0); Alkaline Phosphatase 105 U/L (45-117); Anion Gap 6 (5-15); BUN 13 mg/dL (7-18); BUN/Creat Ratio 15.2 RATIO (10-20); Calcium,Total 8.5 mg/dL (8.5-10.1); Chloride 105 mmol/L (98-107); Creatinine, Serum 0.86 mg/dL (0.55-1.02); EST Glomerular Filtration Rate 73 mL/min (>60); Est Glom Filt Rate - Afr Amer 88 mL/min (>60); Glucose 90 mg/dL (74-106); Potassium 3.9 mmol/L (3.5-5.1); Protein, Total 7.4 g/dL (6.4-8.2); Sodium Level 139 mmol/L (136-145)
[2020-04-01 20:07] LABS: HEPATITIS B SURFACE AG Negative (Negative); Hepatitis A AB, Total Negative (Negative); Hepatitis A IgM Antibody Negative (Negative); Hepatitis B Core AB IgM Negative (Negative); Hepatitis B Core Ab Total Negative (Negative); Hepatitis C Ab 0.1 s/co ratio (0.0-0.9); QNTFERON TB Mitogen Value > 10.00 IU/mL (.); QNTFERON TB Nil Value 0.03 IU/mL (.); QNTFERON TB1+ Ag Value 0.03 IU/mL (.); QNTFERON TB2+ Ag Value 0.03 IU/mL (.)
[2020-04-01 23:57] LABS: Hep B Surface Antibodies Reactive (.); QNTIFERON TB Positive Criteria Negative (Negative)
== END | disposition home or self-care (01) ==
LOC: LAB 09:43
PROVIDERS: PCP Family Medicine; Referring Provider Dermatology Pediatric Dermatology; Visit Provider Dermatology Pediatric Dermatology
DX: L40.0 Psoriasis vulgaris (principal); Z79.899 Other long term (current) drug therapy
CPT/HCPCS: 36415; 80053; 85025; 86480; 86704; 86705; 86706; 86708; 86709; 86803; 87340

== ENCOUNTER 2020-05-05 14:58 | Outpatient (RCR) | payer OTHER, SELFPAY ==
--- NOTE | 2020-05-09 10:56 | MASS.EVAL ---
Massage Therapy Evaluation: Initial Evaluation Date: 05/05/2020 SUBJECTIVE: Linda is a 54 year old female who was referred to the [facility] facility for a massotherapy evaluation by Dr. Camila Madsen with the diagnosis of shoulder pain. She presents today with the symptoms of pain, stiffness and tension in her right shoulder that causes pain in arm and into ribs. Linda reports having a past medical history of neck and back pain. OBJECTIVE: Upon observation Linda has some posture issues with her head and shoulders forward from the neutral position in sitting and standing. After examination and palpation, I found Linda to have high muscle tension with tenderness and myofascial restrictions in her pectorals, sub occipitals, levator scapulae, trapezius, rhomboids, scalenes, and thoracic paraspinals. It seemed to be tighter on her right side. The patient reported tenderness in the right bicep and tricep area. The first treatment consisted of a one hour massage to her upper body with myofascial release, muscle stripping, trigger point compression techniques, and cervical manual traction. ASSESSMENT: I feel that Linda is a good candidate for massotherapy at this time. She had a favorable response to the first treatment with reduction in her muscle aches, pain and tension. She also had improvement in her cervical flexibility and low back flexibility. PLAN: The plan of care was reviewed with the patient. The patient is to be seen on an as needed basis for a total of ten sessions with the recommendation of one-two times per month for a one hour treatment.
--- NOTE | 2020-10-27 12:45 | MASS.DISCH ---
Massage Therapy Discharge Summary: Discharge Date: 10/27/2020 Linda was seen for a massotherapy evaluation on 05/05/2020 with the diagnosis of shoulder pain. She was treated with one session of massage therapy consisting of deep pressure soft tissue techniques, myofascial release and trigger point compression to her cervical area and shoulders. At this time this patient is being discharged from our care at [facility] facility.
== END 2020-05-05 19:00 | disposition home or self-care (01) ==
LOC: MASS 14:58
PROVIDERS: PCP Family Medicine; Referring Provider Family Medicine; Visit Provider Family Medicine
DX: M54.9 Dorsalgia, unspecified (principal)
CPT/HCPCS: 97124

== ENCOUNTER 2020-07-30 15:30 | Outpatient (RCR) | payer OTHER, SELFPAY ==
[2020-06-24 13:27] VITALS: BMI 20.4
--- NOTE | 2020-06-30 16:28 | HP.PTEVAL_ITS ---
Patient's Visit Information [facility] JORDON TAPIA is a 54 year old F referred to Physical Therapy by Dr. Nazia Uriostegui DO with a diagnosis of Upper trap/lat strain. Date of Evaluation: 06/30/20 Physical Therapist: Mary Dobson DPT - Visit Plan Frequency: 2x /Week Duration: 4 Weeks Plan: Focus on Scap s/s- modality of US and Tens - Subjective Patient reports that 6-7 weeks ago she was moving deck boards- no popping just felt pretty sore the next day. Started to bother her and was unable to do her stuff so she went to see Dr. Cevallos. Pain is located in the right shoulder blade and radiates to the hand. Right hand domiante. The pain does not completely go away. Agg: being active Worst: 8/10 Best: 3/10 Eases: rest. 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 Describes the pain as dull and achy. Pain does radiate to the base of the skull. Right hand dominate. No N/T in the fingers. No GONZALES, blurred vision or dizziness. No problems with dropping things or decreased finger dexterity. Not very comfortable at night- sleep is disturbed- side sleeper. Did have an x-ray but not an MRI. No injections. PMHx/Meds: no change since saw . - Objective Posture: Fh, RS- can correct but does not maintain. Gait: no deviaton noted- good arm swing and trunk rotation. Palpatoin: tender along infraspinatus, lats and into the upper trap. Sensation: WNL. ROM: WNL in all planes of the cervical spine and right UE. Strength: Scap: fair minus mild winging, Shoulder: flex/abd: 4+/5 IR/ER: 4-/5 Extn: 4/5 all with discomfort. Special Test: Impingment: negative, Empty Can: positive Lift Off: positive - Goals Goal 1:: Patient will be I with HEP and progression Goal Time Frame: 4-6 Weeks Goal 2:: Patient will maintain proper posture t/o tx session to demo increased scap s.s Goal Time Frame: 4-6 Weeks Goal 3:: Patient will report 0/10 pain for 1 week Goal Time Frame: 4-6 Weeks - Rehabilitation Potential Physical Therapy Diagnosis: Patient presents with hypomobility- she has decreased painfree ROM,strength and muscular endurance leading to poor posture and increased pain with ADL's. Rehabilitation Potential: Fair - Anticipated Interventions Patient/Client Instruction: Educate patient on: Benefits of Fitness Program Therapeutic Exercise to Include: Strength training, Power training, Body mechanics, Postural training, Flexibilty training, Neuromotor development, Passive ROM, Active ROM, Dynamic Lumbar Stabilization, Scapular Strength/S tabilization For the Purpose of:: To improve muscle performance and motor function For the Purpose of:: To improve muscle performance and motor function TENS: Yes Cryotherapy (ice pack, ice massage): Yes Thermo therapy (hot pack): Yes Ultrasound (thermal/non thermal): Yes Thank you for the opportunity to evaluate your patient. For Medicare and Medicare HMO plans, please review the plan of care and approve it. It will need to be FAXED BACK to us at [phone] for Medicare purposes. For Medicare only, by signing this I certify the plan of care. Please let me know if there are questions or concerns regarding this plan of care. Physician Signature: Date:
--- NOTE | 2020-07-30 15:56 | HP.PTDCSUM_ITS ---
It has been my pleasure to treat TAMICA TAPIA referred by Dr. Nazia Uriostegui DO, with the diagnosis of Upper trap/lat strain for a total of 6 visit(s). Discharge Date: Please see the following information for a summary of their discharge status. Subjective: Patient reports that she feels really good- she had one therapy session that was not so great but the others were really good and she is so much better. She has no pain- right shldr Pain Intensity (Out of 10): 3 % Improvement: 95 Objective/Function: Posture: Fh, RS- can correct but does not maintain. Gait: no deviaton noted- good arm swing and trunk rotation. Palpatoin: not tender throughout. Sensation: WNL. ROM: WNL in all planes of the cervical spine and right UE. Strength: Scap: fair minus mild winging, Shoulder: flex/abd: 5/5 IR/ER: 5/5 Extn: 5/5 no pain. Special Test: Impingment: negative, Empty Can: positive Lift Off: positive Goal 1:: Patient will be I with [facility] and progression Goal Progress: Goal Met Goal 2:: Patient will maintain proper posture t/o tx session to demo increased scap s.s Goal Progress: Goal Met Goal 3:: Patient will report 0/10 pain for 1 week Goal Progress: Goal Met Plan: Discharge to [facility] If there are questions or concerns regarding this patient's physical therapy, please feel free to call me at [phone]. Thank you for the referral of this patient. Sincerely, Mary Dobson DPT
== END 2020-07-30 19:00 | disposition home or self-care (01) ==
LOC: PT 15:30
PROVIDERS: PCP Family Medicine; Referring Provider Orthopaedic Surgery; Visit Provider Orthopaedic Surgery
DX: S46.812D Strain of other muscles, fascia and tendons at shoulder and upper arm level, left arm, subsequent encounter (principal)
CPT/HCPCS: 97035; 97110; 97161; 97164

== ENCOUNTER → 2021-03-26 | Outpatient (CLI) | payer OTHER, SELFPAY ==
[2021-03-26 14:21] VITALS: BMI 20.4
[2021-03-31 18:52] LABS: HPV APTIMA, High Risk Negative (Negative)
== END | disposition home or self-care (01) ==
LOC: LABSPEC 16:35
PROVIDERS: PCP Family Medicine; Referring Provider Obstetrics & Gynecology; Visit Provider Obstetrics & Gynecology
DX: Z12.4 Encounter for screening for malignant neoplasm of cervix (principal)
CPT/HCPCS: 87624; 88175; G0145

== ENCOUNTER → 2021-04-27 13:21 | Outpatient (CLI) | payer OTHER, SELFPAY ==
[2021-03-27 09:02] VITALS: BMI 20.4
[2021-04-27 13:43] LABS: Absolute Lymphocyte Count 1.77 X10^3/uL (0.83-4.51); Absolute Neutrophil Count 4.4 X10^3/uL (2.0-7.7); Basophil# 0.02 X10^3/uL; Basophil% 0.3 % (0-1); Eosinophil# 0.09 X10^3/uL; Eosinophils% 1.3 % (0-5); Hematocrit 40.3 % (37-47); Hemoglobin 13.2 g/dL (12.0-15.0); Lymphocyte # 1.77 X10^3/ul (0.83-4.51); Lymphocyte % 26.4 % (19-41); Mean Corp Hgb Conc 32.8 g/dL (32-36); Mean Corpuscular Hgb 29.5 pg (27.0-32.0); Mean Corpuscular Volume 90.2 fL (81-99); Mean Platelet Vol. 10.3 fl (6.2-12.0); Monocyte# 0.42 X10^3/uL; Monocyte% 6.3 % (0-10); NRBC Flagged by Analyzer 0 % (0-5); Neutrophil # 4.39 X10^3/uL (2.7-7.7); Neutrophil % 65.4 % (47-70); Platelet Count 268 K/mm3 (150-450); RBC Distribution Width CV 13.3 % (11.6-14.6); RBC Distribution Width SD 44.2 fl (35.1-43.9); Red Blood Count 4.47 M/mm3 (4.2-5.4); White Blood Count 6.7 K/mm3 (4.4-11.0)
[2021-04-27 13:56] LABS: Anion Gap 10 (5-15); BUN 13 mg/dL (7-18); BUN/Creat Ratio 18.1 RATIO (10-20); Calcium,Total 8.9 mg/dL (8.5-10.1); Chloride 104 mmol/L (98-107); Creatinine, Serum 0.72 mg/dL (0.55-1.02); EST Glomerular Filtration Rate 89 mL/min (>60); Est Glom Filt Rate - Afr Amer 107 mL/min (>60); Glucose 90 mg/dL (74-106); Potassium 3.7 mmol/L (3.5-5.1); Sodium Level 138 mmol/L (136-145)
[2021-04-30 06:07] LABS: QNTFERON TB Mitogen Value > 10.00 IU/mL (.); QNTFERON TB Nil Value 0 IU/mL (.); QNTFERON TB1+ Ag Value 0 IU/mL (.); QNTFERON TB2+ Ag Value 0 IU/mL (.)
[2021-04-30 10:35] LABS: QNTIFERON TB Positive Criteria Negative (Negative)
== END ==
PROVIDERS: PCP Family Medicine; Referring Provider Dermatology; Visit Provider Dermatology
DX: L40.0 Psoriasis vulgaris (principal)
CPT/HCPCS: 36415; 80048; 85025; 86480

== ENCOUNTER 2021-06-02 05:59 | Day surgery (SDC) | payer OTHER, SELFPAY ==
[2021-03-27 09:02] VITALS: BMI 20.4
[2021-05-26 16:00] VITALS: BMI 20.4
[2021-05-27 07:32] LABS: Absolute Lymphocyte Count 1.86 X10^3/uL (0.83-4.51); Basophil# 0.03 X10^3/uL; Basophil% 0.4 % (0-1); Eosinophil# 0.13 X10^3/uL; Eosinophils% 1.7 % (0-5); Hematocrit 43.9 % (37-47); Lymphocyte # 1.86 X10^3/ul (0.83-4.51); Lymphocyte % 24.3 % (19-41); Mean Corp Hgb Conc 31.9 g/dL (32-36); Mean Corpuscular Hgb 29.9 pg (27.0-32.0); Mean Corpuscular Volume 93.6 fL (81-99); Mean Platelet Vol. 10.9 fl (6.2-12.0); Monocyte# 0.59 X10^3/uL; Monocyte% 7.7 % (0-10); NRBC Flagged by Analyzer 0 % (0-5); Neutrophil % 65.4 % (47-70); Platelet Count 244 K/mm3 (150-450); RBC Distribution Width CV 14.1 % (11.6-14.6); RBC Distribution Width SD 48.8 fl (35.1-43.9); Red Blood Count 4.69 M/mm3 (4.2-5.4); White Blood Count 7.7 K/mm3 (4.4-11.0)
[2021-05-27 08:17] LABS: ALB/GLOB Ratio 0.9 RATIO (0.9-2.4); AST(SGOT) 20 U/L (15-37); Alanine Aminotransfer ALT/SGPT 26 U/L (13-56); Albumin, Serum 3.3 g/dL (3.2-5.0); Alkaline Phosphatase 89 U/L (45-117); Anion Gap 3 (5-15); BUN 17 mg/dL (7-18); BUN/Creat Ratio 23.5 RATIO (10-20); Calcium,Total 8.6 mg/dL (8.5-10.1); Chloride 108 mmol/L (98-107); Creatinine, Serum 0.72 mg/dL (0.55-1.02); EST Glomerular Filtration Rate 88 mL/min (>60); Est Glom Filt Rate - Afr Amer 107 mL/min (>60); Globulin 3.5 g/dL (2.2-4.2); Glucose 85 mg/dL (74-106); Protein, Total 6.8 g/dL (6.4-8.2); Sodium Level 139 mmol/L (136-145)
--- NOTE | 2021-06-01 06:02 | EKG12_ITS ---
Test Reason : PRE OP Blood Pressure : / mmHG Vent. Rate : 077 BPM Atrial Rate : 077 BPM P-R Int : 130 ms QRS Dur : 080 ms QT Int : 370 ms P-R-T Axes : 070 080 058 degrees QTc Int : 418 ms Normal sinus rhythm Normal ECG Confirmed by PUSHPA VAZQUEZ, CONNIE ([id number]), newspaper editor AVINASH RAMIREZ ([id number]) on 06/01/2021 2:19:21 PM Referred By: Analy Nielsen Confirmed By:CONNIE BARROW MD
--- NOTE | 2021-06-02 | FALS_PTH ---
PATIENT: TAMICA TAPIA [place] [facility] [id number] AGE/SX: 55/F ROOM: RE06/02/[address]: Dr. Analy Nielsen MD : 1965 BED: DIS: 06/02/2021 SPEC #: [id number] RECD: 06/02/21 13:06 STATUS: LEBRON LALA #: [id number] SARTHAK: 06/02/21 00:[address]: Analy Nielsen DEPT: SURGICAL PATHOLOGY RECD BY: Pee Orta ENTERED: 06/02/21 13:07 SP TYPE: FALL TUBES OTHR DR: Dr. Camila Madsen, DO Tissues: Fallopian tube Procedures: Surgery Specimen Level IV HEADER OPERATION: Laparoscopic salpingectomy, extensive lysis of adhesions PRE-OP DIAGNOSIS: Chronic pelvic pain TISSUE SUBMITTED: Bilateral fallopian tubes MICROSCOPIC DIAGNOSIS Right and left fallopian tubes, bilateral salpingectomies: Complete segments of fallopian tubes. Focal changes suggestive of endometriosis. Two metallic coils consistent with Essure devices (gross diagnosis only). AM:jona 06/03/2021 MICROSCOPIC DESCRIPTION Slides are reviewed. GROSS DESCRIPTION Received in fixative is one container labeled with the patient's name and designated bilateral fallopian tubes. The specimen consists of bilateral fallopian tubes including fimbrial ends. One fallopian tube measures 6 cm in length and 1 cm in diameter. A metallic coil device is present in the container consistent with Essure device. The second fallopian tube measures 5 cm in length and up to 0.5 cm in diameter. A metallic coil device consistent with Essure device is projecting out from the proximal portion of the fallopian tube. The fallopian tubes are not identified as right or left. Sections reveal unremarkable cut surfaces. Air Plant Engineer sections are submitted in two cassettes as follows: 1 - fallopian tube without metallic coil device, 2 - second fallopian tube with metallic coil device/Essure device projecting from the fimbrial end. / SJ:jona 06/02/21 TC:5 CPT: 26551 x2, 7053
[2021-06-02] MEDS: Enoxaparin 40 MG/0.4 ML Syringe SC (06:24)
[2021-06-02 06:28] VITALS: BP 131/77; PULSE 75; RESP 16; TEMP 36.8; O2SAT 100; BMI 22.4
[2021-06-02] MEDS: Lactated Ringers 1,000 ML 100 ML IV (06:35)
--- NOTE | 2021-06-02 07:32 | HP.PCM_ITS ---
History and Physical Date of Admission: 06/02/21 Intake Vital Signs 05/26/21 15:59 05/26/21 16:00 Height 5 ft 2 in Weight: 123 lb BMI 22.4 20.4 BP 120/82 H Intake Visit Reasons: LBS Chief Complaint: pre op Bobbin Sorter Required: No Is patient in pain?: No Allergies diazepam [From Valium] Allergy (Verified 05/26/21 15:59) Other oxycodone HCl [From Percocet] Allergy (Verified 05/26/21 15:59) Other Penicillins Allergy (Verified 05/26/21 15:59) Swelling zolpidem tartrate [From Ambien] Allergy (Verified 05/26/21 15:59) Other Medications lorazepam 0.5 mg PO DAILY PRN PRN 01/18/14 [History Confirmed 05/26/21] clobetasol-emollient 15 g TP PRN PRN 11/21/18 [History Confirmed 05/26/21] cyclobenzaprine 10 mg PO TID PRN #20 tab 04/08/20 [Rx Confirmed 05/26/21] ustekinumab 45 mg/0.5 mL subcutaneous solution 45 mg SC .[id number] 06/24/20 [History Confirmed 05/26/21] dupilumab 200 mg/1.14 mL subcutaneous syringe 200 mg SUBCUT QMONTH 03/26/21 [History Confirmed 05/26/21] buspirone 5 mg tablet 5 mg PO BID PRN 05/14/21 [History Confirmed 05/26/21] metaxalone 800 mg tablet 800 mg PO TID PRN #20 tab 05/14/21 [Rx Confirmed 05/26] Is last menstrual period known: No Post menopausal: Yes Patient : No : No PFSH Medical History Anxiety Blood disorder Cervical paraspinal muscle spasm Cervical strain Factor V Leiden Gallbladder polyp History of colitis History of echocardiogram History of IBS History of irregular heartbeat Hx of flexible sigmoidoscopy Injury of head and neck Non-smoker Wears contact lenses Wears glasses Surgical History History of breast augmentation History of colonoscopy (~06/2017) History of dilation and curettage (~2004) S/P laparoscopic cholecystectomy Family History Sister Asthma Colon cancer Mother Diabetes Heart disease Hypertension CVA (cerebral vascular accident) Social History Smoking Status: Never smoker alcohol intake: current alcohol intake frequency: a few times a week substance use type: does not use caffeine: Yes what type of physical activity do you participate in: walking and running seatbelt use: always additional social history: [facility] surgery HPI LBS Details: TAMICA TAPIA is a 55 year old who presents for preop appointment with chronic pelvic pain likely due to essure devices. Female Reproductive History Menopausal Symptoms: Yes hot flashes, No night sweats and No difficulty concentrating Pregancy History 3 Elective abortions 0 Hx Para 2 Spontaneous abortions 1 Hx # Term Pregnancies 2 Ectopic pregnancies 0 Hx # Pregnancies 0 Multiple births 0 # of living children 2 ROS Const Constitutional: Denies fatigue, night sweats, weight gain or weight loss ENT ENT: Reports system reviewed and no additional complaints, except as documented Cardio Card: Denies chest pain Resp Resp: Denies cough or dyspnea GI GI: Reports as per HPI and abdominal pain; Denies constipation, nausea or vomiting : Reports as per HPI, hot flashes, pelvic pain, vaginal dryness and vaginal pruritus; Denies nipple discharge, vaginal discharge or vaginal odor Musc Musc: Denies arthralgias, back pain or muscle weakness Skin Skin/Breast: Denies alopecia, change in hair, dry skin, breast mass, breast pain, breast skin changes or nipple discharge Neuro Neuro: Reports system reviewed and no additional complaints, except as documented Psych Psych: Reports system reviewed and no additional complaints, except as d ocumented and anxiety; Denies difficulty concentrating Endo Endo: Denies cold intolerance, excessive sweating, heat intolerance or polydipsia Tarun/Lymph Hematologic/Lymphatic: Denies easy bleeding, Denies easy bruising and Denies lymphadenopathy Exam Const General: cooperative, healthy appearing, comfortable, no acute distress and well developed Orientation: alert [facility] Head: normal to inspection and normocephalic Ears: hearing grossly normal bilaterally and external ears normal Nose: external nose normal and nares normal Face and sinus: normal facial exam Neck Neck: normal visual inspection and no lymphadenopathy Thyroid: thyroid normal Chest Chest palpation & inspection: normal inspection of the chest Resp Effort & Inspection: normal respiratory effort Auscultation: clear to auscultation bilaterally Cardio Rate: regular rate Rhythm: regular rhythm Heart Sounds: S1 normal and S2 normal GI Inspection: normal to inspection and non-distended Palpation: soft and no hepatosplenomegaly General: bladder normal to palpation External Female Exam: abnormal external appearance (bilateral lichenification and thinning, fissures, narrowing of introitus) and normal appearance of the urethra Urethra: normal appearance of the urethra, normal palpation and no discharge Speculum Exam - Vagina: normal appearance of the vagina and normal vaginal discharge Speculum Exam - Cervix: normal appearance of the cervix and nontender Bimanual Exam- Vagina & Uterus: normal bimanual exam, uterine size normal, bladder normal to palpation, uterine shape normal, No tender, uterine mobility normal, consistency normal, normal palpation and non-tender Bimanual Exam- Adnexa, other: normal adnexae, adnexae mobile, no masses and normal Pelvic Support: normal Musc Other: gross motor intact no deficits, full bilateral strength Skin General: no rashes or lesions noted Neuro General: patient alert, patient awake, moves all extremities and no focal motor deficits Motor: muscle tone normal throughout Extrem General: normal to inspection and no pedal edema Psych Appearance: grossly normal Mental Status: mental status grossly normal Affect: normal affect Speech and Movement: speech and movement normal Coding Level of Care Code No Charge Diagnoses Chronic pelvic pain in female R10.2; G89.29 Assessment and Plan Assessment and Plan (1) Chronic pelvic pain in female: Status: Chronic Comment: suspect sec to essure devices. recommend laparosocpic bilateral salpingectomy. Plan - Dr. Analy Nielsen MD: After discussing the patient's diagnosis and treatment plan options, patient wishes to proceed with surgical management. I have discussed with the patient the risks, benefits, and alternatives of the procedure which include but are not limited to risks of anesthesia, bleeding, infection, possible damage to bowel, bladder, or surrounding vasculature which could lead to additional surgery to evaluate any complications. Patient agrees to procedure and wishes to proceed. ACOG/uptodate references given for additional information regarding procedure. .HP
--- NOTE | 2021-06-02 07:32 | PCM.OPRPT ---
Problems Associated Problem List Diagnoses (1) Chronic pelvic pain in female: (2) Endometriosis: Report of Operation Date of Procedure: 06/02/21 Pre-Operative Diagnosis: see problem list Post-Operative Diagnosis: samePlus stage IV endometriosis Surgery/Procedure Performed:: laparoscopic bilateral salpingectomy, extensive lysis of adhesions Description of Surgical Findings:: nl uterus tubes ovaries mash processing operator: Stefania Monet Type of Anesthesia: General and Local Specimen's removed: tubes Drains: none Estimated Blood Loss (mL): 50 Fluids Replaced: crystalloid Description of Procedure: Patient was taken in the operating room and was placed under general anesthesia was prepped and draped in normal sterile fashion in the dorsal lithotomy position. Bladder was drained of clear urine and SCDs were on preoperatively. Uterus had severe cervical stenosis and was not able to be entered and therefore sponge stick was placed in the vagina. Attention was then paid to the abdominal portion of the procedure and the umbilicus was elevated with towel clamps and injected with Marcaine and after a 5 mm incision was made and the Veress needle was entered into the abdomen confirmed to be intra-abdominal with a low opening pressure of less than 5 mmHg. Abdomen was insufflated with CO2 gas and a 5 mm optical trocar was placed under direct visualization. Two 5 mm ports were placed in the right and left lower quadrant without complication. Right sided pelvic adhesions were noted between the bowel and the sidewall which were taken down with the LigaSure device and with blunt dissection. Stage IV endometriosis was seen with no active lesions due to postmenopausal status but extensive dense scar tissue encountered with a complete obliteration of the cul-de-sac and bilateral ovaries attached to the ovarian fossa. Bilateral clubbed tubes were noted and extensive inflammatory reaction was noted on bilateral uterine cornua. Extensive sharp dissection using laparoscopic scissors as well as the LigaSure device, and then hydrodissection was used to create the pouch of Herb. Sigmoid colon was adherent on the entire length of the posterior part of the uterus and this was taken down with laparoscopic scissors. The left fallopian tube and fimbria were noted to be clubbed and thickened and adhesed which were taken down with the LigaSure device and then transected across the mesosalpinx up to the level of the uterine cornua. The Essure device was visualized to be removed in entirety and the inflammatory tissue around the bilateral uterine cornua was removed with dissection. This was repeated on the right side and the Essure device was removed in its entirety as well as the inflammation tissue that was left. Continued dissection into the cul-de-sac was performed to release the sigmoid colon and the bilateral ovaries and restore normal anatomy due to an extensive history of chronic pelvic pain. By the end of the dissection anatomy was restored bilateral ovaries were free and sigmoid colon was visualized to have a normal course with full integrity to the serosa. Bilateral tubes were removed without complication through the port sites and sent to pathology for analysis. Liver and upper abdomen were visualized notably within normal limits and no other gross abnormalities were seen in the abdomen. All instruments removed from the abdomen after gas was desufflated. Port sites were closed with 3-0 Monocryl Steri's and op sites were applied. All instruments removed from the vagina and patient was awoken and taken recovery in stable condition. Approximately 50+ minutes were spent in laparoscopic dissection alone for extensive lysis of adhesions due to stage IV endometriosis. Grafts/Implants Used: none Complications none Admit VTE Documentation VTE Present on Admission: No VTE Mechan Device Prophylaxis: SCD's Procedures Urinary/Genital [id number]: [id number] Laproscopic BS/O
--- NOTE | 2021-06-02 07:41 | DCINST_ITS ---
Discharge Instructions Diet Discharge Diet: No restrictions Activity Discharge Activity: Return to Normal Activity, May Not Drive (for 2 weeks or while taking narcotic pain meds.), May Shower and May Take a Tub Bath (in 7 days) May resume sexual activity in: 1 week Weight Bearing Status: Full weight bearing Dressing / Incision Call your doctor if your incision/area has: Continuous Slow Oozing, Sudden Increased Bleeding, Increased Pain/ Swelling, Increased Redness and Foul Smelling Discharge Call your doctor if you observe: Fever of 101 or Higher, Using more than 1 pad per hour, Shortness of breath, Chest pain and Uncontrolled pain Suture Line Care: Avoid Pulling/Pushing and Avoid Pinching/Bending Remove Dressing in: 1 week (if present) Cleanse incision/area with: Soap & Water and Keep Dressing Clean & Dry Follow Up Care When: Call to make an appointment with your doctor for a fu/incision check in 1- 2 weeks. Test Results: Test results from this visit will be discussed in further detail at your follow-up appointment, if applicable. Discharge Plan Admission Primary Reason for Your Visit: laparoscopy Attending Provider: Analy Nielsen Primary Care Provider: Camila Madsen Discharge Orders/Prescriptions Prescriptions: New naproxen 250 MG tablet 250 - 500 mg PO Q8H PRN PRN (Reason: MILD PAIN) Qty: 30 RF: 1 hydrocodone-acetaminophen 5-325 mg tablet 1 tab PO Q6H PRN (Reason: pain) 5 Days Qty: 10 RF: 0 Continued Stelara 45 mg/0.5 mL solution 45 mg SC .[id number] RF: 0 Dupixent Syringe 200 mg/1.14 mL syringe 200 mg subcut QMONTH RF: 0 buspirone 5 mg tablet 5 mg PO BID PRN (Reason: Anxiety) RF: 0 metaxalone [Skelaxin] 800 mg tablet 800 mg PO TID PRN (Reason: muscle pain) Qty: 20 RF: 0 lorazepam 0.5 MG tablet 0.5 mg PO DAILY PRN PRN (Reason: Anxiety) RF: 0 clobetasol-emollient 15 GM cream 15 g TP PRN PRN (Reason: SCLEROSIS/SKIN) RF: 0 cyclobenzaprine 10 MG tablet 10 mg PO TID PRN (Reason: Muscle spasms) Qty: 20 RF: 0 Referrals / Follow Up: Camila Madsen DO [Primary Care Provider] - Analy Nielsen MD [STAFF PHYSICIAN] - Disposition Discharge Orders: Discharge Patient (Routine); Ordered 06/02/21 Ordered By: Dr. Analy Nielsen
[2021-06-02] MEDS: Bupivacaine 0.25% 30 ML Vial (07:48)
[2021-06-02 09:21] VITALS: BP 117/54; BP 131/77; PULSE 67; RESP 16; TEMP 36.1; O2SAT 95
[2021-06-02 09:30] VITALS: BP 101/65; BP 131/77; PULSE 65; RESP 18; O2SAT 99
[2021-06-02 09:45] VITALS: BP 113/65; BP 131/77; PULSE 58; RESP 18; O2SAT 100
[2021-06-02 09:48] VITALS: BP 102/73; BP 131/77; PULSE 65; RESP 18; TEMP 35.8; O2SAT 99
[2021-06-02] MEDS: HYDROcodone Bitartrate/Apap 5/325 Tablet PO (10:15)
[2021-06-02 10:45] VITALS: BP 117/71; BP 131/77; PULSE 67; RESP 16; TEMP 36.3; O2SAT 100
== END 2021-06-02 11:00 | disposition home or self-care (01) ==
LOC: SDC 05:59 → AC 06:00
PROVIDERS: PCP Family Medicine; Referring Provider Obstetrics & Gynecology; Visit Provider Obstetrics & Gynecology
PROC: (CPT 58661; principal; 2021-06-02 07:15)
DX: N80.2 Endometriosis of fallopian tube (principal); F41.9 Anxiety disorder, unspecified; Z79.899 Other long term (current) drug therapy
CPT/HCPCS: 58660; 58661; 36415; 80053; 85025; 86850; 86900; 86901; 87426; 88302; 88305; 93005; C9803; J7120; J2405

== ENCOUNTER 2021-06-24 21:57 | Emergency (ER) | payer OTHER, SELFPAY ==
[2021-06-15 08:59] VITALS: BMI 22.4
[2021-06-24 21:59] VITALS: BP 148/83; PULSE 103; RESP 18; TEMP 36.1; O2SAT 100; BMI 22.3
--- NOTE | 2021-06-24 22:10 | RAD_ITS ---
STUDY: X-RAY RIGHT FOOT, GREAT TOE REASON FOR EXAM: Female, 55 years old. injured right great toe on sweeper today. TECHNIQUE: 3 view(s) of the forefoot were obtained. COMPARISON: None. FINDINGS: An acute nondisplaced oblique fracture is present at the base and medial corner of the distal phalanx of the great toe. The remaining bony structures of the forefoot are normal. Normal visualized metatarsus. Normal metatarsophalangeal (M.T.P) joint. Normal interphalangeal joints. Normal phalanges and interphalangeal joints. The soft tissue structures are unremarkable. RAD/Toe(s) Min 2 Views IMPRESSION: Acute nondisplaced fracture at the base of the distal phalanx of the great toe Electronically Signed: Arie Reagan MD at 23:01 EDT , Service support ,
--- NOTE | 2021-06-24 23:13 | EDS_ITS ---
HPI History of Present Illness Chief Complaint: Lower Extremity Injury Detail of Chief Complaint: Right great toe pain Informant: patient Occured/Mechanism Mechanism/Context: Yes blunt trauma Onset/Context/Timing Onset: Hours Context: Sudden Onset Timing: Continuous Quality of Pain: Dull and Throbbing Current Severity: Mild Maximum Severity: Severe Worsened by: Attempt to bear weight Relieved by: Nothing Associated Symptoms Associated Symptoms: Positive for Loss of Funtion Narrative Narrative: Patient is a 55-year-old woman who presents because of great toe pain after blunt trauma. Her great toe is swollen and ecchymotic. She denies paresthesia, anesthesia motors. She denies history of diabetes. She denies history of PAD. Tetanus Immunization: 5-10 years Prior similar symptoms: No Recent Illness/Hospitalization: Yes [facility] Medical History Anxiety Blood disorder Cervical paraspinal muscle spasm Cervical strain Endometriosis determined by laparoscopy Factor V Leiden Gallbladder polyp History of colitis History of echocardiogram History of IBS History of irregular heartbeat Hx of flexible sigmoidoscopy Injury of head and neck Non-smoker Wears contact lenses Wears glasses Home Medications lorazepam 0.5 mg PO DAILY PRN PRN 01/18/14 [History Last Taken 01/18/14] clobetasol-emollient 15 g TP PRN PRN 11/21/18 [History Last Taken Unknown] cyclobenzaprine 10 mg PO TID PRN #20 tab 04/08/20 [Rx Last Taken Unknown] ustekinumab 45 mg/0.5 mL subcutaneous solution 45 mg SC .[id number] 06/24/20 [History Last Taken Unknown] dupilumab 200 mg/1.14 mL subcutaneous syringe 200 mg SUBCUT QMONTH 03/26/21 [History Last Taken Unknown] buspirone 5 mg tablet 5 mg PO BID PRN 05/14/21 [History Last Taken Unknown] metaxalone 800 mg tablet 800 mg PO TID PRN #20 tab 05/14/21 [Rx Last Taken Unknown] Allergy/AdvReac Type Severity Reaction Status Date / Time diazepam [From Valium] Allergy Other Verified 06/24/21 21:58 oxycodone HCl [From Percocet] Allergy Other Verified 06/24/21 21:58 Penicillins Allergy Swelling Verified 06/24/21 21:58 zolpidem tartrate Allergy Other Verified 06/24/21 21:58 [From Ambien] Family History Sister Asthma Colon cancer Mother Diabetes Heart disease Hypertension CVA (cerebral vascular accident) Surgical History H/O bilateral salpingectomy History of breast augmentation History of colonoscopy (~06/2017) History of dilation and curettage (~2004) S/P laparoscopic cholecystectomy Social History Smoking Status: Never smoker alcohol intake: current alcohol intake frequency: a few times a week substance use type: does not use caffeine: Yes what type of physical activity do you participate in: walking and running seatbelt use: always additional social history: [facility] surgery ROS ROS ED Cardiovascular Cardiovascular: Denies chest pain Respiratory/Chest Respiratory/Chest: Denies dyspnea Gastrointestinal Gastrointestinal: Denies nausea or vomiting Musculoskeletal Musculoskeletal: Reports other Details: Right great toe pain Neurologic Neurologic: Denies paresthesias or weakness Hematologic/Lymphatic Hematologic/Lymphatic: Denies easy bleeding or easy bruising EXAM Physical Exam Const Vital Signs: 06/24/21 21:59 Temperature 97 F L Temperature Source Temporal Pulse Rate 103 H Respiratory Rate 18 Blood Pressure 148/83 H Blood Pressure Mean 104 Pulse Ox 100 Positive well nourished and well developed General Appearance ED: well developed HEENT normocephalic and atraumatic Eyes PERRL Eyes Narrative: Extract muscle intact. Sclerae anicteric. Neck full ROM Resp normal respiratory effort Cardio regular rate and regular rhythm Extremity Negative for normal to inspection or full ROM Extremity Narrative: Right great toe is swollen and ecchymotic. There is pain to palpation over the distal portion. General Extremety ED: Yes weight-bearing difficulty; Negative for cyanosis or edema General Extremity: weight-bearing difficulty; Negative for cyanosis or edema Neuro oriented x3, CN's II-XII intact bilaterally and no sensory deficits noted Sensorium / Orientation: alert Motor Exam: strength 5/5 throughout Psych mental status grossly normal Skin Lesions: no lesions Rashes: no rashes MDM MDM MDM Narrative Medical decision making narrative: X-ray per nursing protocol was entered. X- ray was interpreted by me as positive for an intra-articular fracture of the distal phalanx medial one third. The fracture is not displaced. Since patient is unable to bear weight she was treated with postop shoe and crutches. She states she has Vicodin at home from her surgery 2 weeks ago. She was referred to Dr. Day. Radiography Diagnostic Testing: Radiology Impression Toe X-Ray 06/24/21 22:10 IMPRESSION: Acute nondisplaced fracture at the base of the distal phalanx of the great toe Electronically Signed: Arie Reagan MD at 23:01 EDT , Service support , Interpretation documented in the MDM section of the chart Discharge Plan Triage Chief Complaint: Lower Extremity Injury ED Provider: Bhaskar Morrow Dx/Rx/DC Orders Clinical Impression: Fracture of distal phalanx of right great toe Instructions: ED Fracture, Toe, Closed Prescriptions: No Action Stelara 45 mg/0.5 mL solution 45 mg SC .[id number] RF: 0 Dupixent Syringe 200 mg/1.14 mL syringe 200 mg subcut QMONTH RF: 0 buspirone 5 mg tablet 5 mg PO BID PRN (Reason: Anxiety) RF: 0 metaxalone [Skelaxin] 800 mg tablet 800 mg PO TID PRN (Reason: muscle pain) Qty: 20 RF: 0 lorazepam 0.5 MG tablet 0.5 mg PO DAILY PRN PRN (Reason: Anxiety) RF: 0 clobetasol-emollient 15 GM cream 15 g TP PRN PRN (Reason: SCLEROSIS/SKIN) RF: 0 cyclobenzaprine 10 MG tablet 10 mg PO TID PRN (Reason: Muscle spasms) Qty: 20 RF: 0 Primary Care Provider: Camila Madsen Referrals: Haylie Day DPM [STAFF PHYSICIAN] - 3-5 Days Camila Madsen DO [Primary Care Provider] - Activity Restrictions/Additional Instructions: 1. Wear postop shoe 2. Bear weight as tolerated 3. Elevate foot as much as possible 4. Apply ice 8 times a day 5. Take the Vicodin you were prescribed for your prior surgery as needed for pain Disposition Disposition: Home, Self Care
== END 2021-06-25 00:07 | disposition home or self-care (01) ==
LOC: ED 23:29
PROVIDERS: Emergency Provider Emergency Medicine; PCP Family Medicine
DX: S92.424A Nondisplaced fracture of distal phalanx of right great toe, initial encounter for closed fracture (principal); F41.9 Anxiety disorder, unspecified; Z79.899 Other long term (current) drug therapy; X58.XXXA Exposure to other specified factors, initial encounter; Y93.89 Activity, other specified; Y92.89 Other specified places as the place of occurrence of the external cause; Y99.8 Other external cause status
CPT/HCPCS: 73660; 99284

== ENCOUNTER → 2021-07-23 13:13 | Outpatient (CLI) | payer OTHER, SELFPAY ==
--- NOTE | 2021-07-23 13:16 | RAD_ITS ---
History: Fracture follow-up Right toes 3 views: Comparison: June 24, 2021 Findings: Fracture of the proximal base of the first distal phalanx again noted without change in position and alignment. No subluxation deformity. IMPRESSION: No significant interval change. at 1358 Reported and signed by: Martin Mosqueda MD Electronically Signed: Martin Mosqueda MD at 13:57 EDT Tel , Service support , RAD/Toe(s) Min 2 Views
--- NOTE | 2021-07-23 13:18 | RAD_ITS ---
EXAM: XR RIGHT FOOT COMPLETE, 3 OR MORE VIEWS : 1965 CLINICAL INDICATION: PAIN IN R TOE -- Nondisplaced fracture of distal phalanx of right great toe, initial encount TECHNIQUE: Frontal, lateral and oblique views of the right foot. This report was created using [employer] report generation technology. COMPARISON: June 24, 2021 FINDINGS: BONES/JOINTS: Fracture of the first distal phalanx again noted without change in position and alignment. Preservation of the joint space. No sclerotic or destructive changes observed. SOFT TISSUES: Unremarkable. No soft tissue swelling or gas. No radiopaque foreign body. RAD/Foot min 3 Views IMPRESSION: Fracture of the first distal phalanx without interval change. at 1357 Reported and signed by: Martin Mosqueda MD Electronically Signed: Martin Mosqueda MD at 13:56 EDT Tel , Service support ,
== END ==
PROVIDERS: PCP Family Medicine; Referring Provider Podiatrist Foot & Ankle Surgery; Visit Provider Podiatrist Foot & Ankle Surgery
DX: S92.424A Nondisplaced fracture of distal phalanx of right great toe, initial encounter for closed fracture (principal); M79.674 Pain in right toe(s)
CPT/HCPCS: 73630; 73660

== ENCOUNTER → 2021-08-20 10:56 | Outpatient (CLI) | payer OTHER, SELFPAY ==
--- NOTE | 2021-08-20 10:58 | RAD_ITS ---
STUDY: X-RAY - RIGHT FOOT CLINICAL: Female, 55 years old. Follow-up of fracture of distal phalanx of first digit. TECHNIQUE: 4 view(s) of the foot. COMPARISON: 07/23/2021. FINDINGS: Osteopenia. Stable oblique fracture of the medial and basilar aspect of the distal phalanx of the first digit with intra-articular extension. Stable moderate osteoarthritic changes. The soft tissue structures are unremarkable. RAD/Foot min 3 Views IMPRESSION: Osteopenia with stable fracture of the proximal aspect of the distal phalanx of the first digit. Osteoarthritic changes unaltered. No complicating features. Electronically Signed: Jean Pierre Gutierrez MD at 12:34 EDT , Service support ,
== END ==
PROVIDERS: PCP Family Medicine; Referring Provider Podiatrist; Visit Provider Podiatrist
DX: S92.421A Displaced fracture of distal phalanx of right great toe, initial encounter for closed fracture (principal)
CPT/HCPCS: 73630

== ENCOUNTER → 2021-09-10 12:56 | Outpatient (CLI) | payer OTHER, SELFPAY ==
[2021-09-10 14:29] LABS: Vitamin D,25 Hydroxy 28.2 ng/mL
== END ==
PROVIDERS: PCP Family Medicine; Referring Provider Podiatrist; Visit Provider Podiatrist
DX: E55.9 Vitamin D deficiency, unspecified (principal); S92.424A Nondisplaced fracture of distal phalanx of right great toe, initial encounter for closed fracture
CPT/HCPCS: 36415; 82306

== ENCOUNTER 2021-12-01 14:32 | Outpatient (CLI) | payer OTHER, SELFPAY ==
[2021-12-01 14:38] VITALS: BP 144/82; PULSE 93; RESP 16; TEMP 36.6; O2SAT 100; BMI 21.4
[2021-12-01] MEDS: 0.9% Saline Lock 10 ML Syringe IV (14:40)
[2021-12-01 15:17] VITALS: BP 121/69; PULSE 81; RESP 16; TEMP 36.8; O2SAT 98
[2021-12-01 16:31] VITALS: BP 125/76; PULSE 84; RESP 16; TEMP 36.9; O2SAT 100
== END 2021-12-01 23:59 | disposition home or self-care (01) ==
LOC: MS3OUT 14:32 → MS3 14:33
PROVIDERS: PCP Family Medicine; Referring Provider Nurse Practitioner Acute Care; Visit Provider Nurse Practitioner Acute Care
DX: Z23 Encounter for immunization (principal); U07.1 COVID-19
CPT/HCPCS: J7050; M0245; Q0245; A4216

== ENCOUNTER 2022-01-21 06:52 | Outpatient (CLI) | payer OTHER, SELFPAY ==
[2022-01-24 20:07] LABS: QNTFERON TB Mitogen Value 4.08 IU/mL (.); QNTFERON TB Nil Value 0.01 IU/mL (.); QNTFERON TB1+ Ag Value 0.03 IU/mL (.); QNTFERON TB2+ Ag Value 0.02 IU/mL (.)
[2022-01-24 23:02] LABS: QNTIFERON TB Positive Criteria Negative (Negative)
== END 2022-01-21 23:59 | disposition home or self-care (01) ==
PROVIDERS: PCP Family Medicine; Referring Provider Dermatology; Visit Provider Dermatology
DX: L40.0 Psoriasis vulgaris (principal); L20.89 Other atopic dermatitis; E88.1 Lipodystrophy, not elsewhere classified; Z79.899 Other long term (current) drug therapy
CPT/HCPCS: 36415; 86480

== ENCOUNTER → 2022-04-06 | Outpatient (CLI) | payer OTHER, SELFPAY ==
--- NOTE | 2022-04-06 08:32 | RAD_ITS ---
INDICATION: pain EXAMINATION/TECHNIQUE: X-RAY - XR Spine Cervical 2 or 3 Views COMPARISON: None. TECHNIQUE: AP and lateral views of the cervical spine were obtained. FINDINGS: VERTEBRAE: Vertebral body heights and alignments are maintained. No fracture or malalignment. No spondylolisthesis. Preservation of the normal cervical lordosis. Mild multilevel degenerative disc disease most prominent at the C4-C5 level. Mild multilevel facet arthropathy. DISCS: Mild disc height loss at the C4-C5 level associated with chronic degenerative disc disease. NECK SOFT TISSUES: No prevertebral soft tissue widening. LUNG APICES: The visualized lung apices are clear. RAD/Cerv Spine 2 or 3 Views IMPRESSION: 1. No acute fracture or spondylolisthesis. 2. Mild multilevel degenerative disc disease most prominent at C4-C5. 3. Mild multilevel facet arthropathy. Electronically Signed: Keyshawn Reinoso, at 10:53 EDT ,
== END | disposition home or self-care (01) ==
LOC: RAD 08:29
PROVIDERS: PCP Family Medicine; Referring Provider Orthopaedic Surgery; Visit Provider Orthopaedic Surgery
DX: M54.2 Cervicalgia (principal)
CPT/HCPCS: 72040

== ENCOUNTER → 2022-07-23 | Outpatient (CLI) | payer OTHER, SELFPAY ==
--- NOTE | 2022-07-23 06:31 | MRI_ITS ---
HISTORY: pain into R arm when turning head to the left. TECHNIQUE: Multiplanar and multisequence MR images of the cervical spine were obtained without contrast. 246 images. COMPARISON: 06/28/2011. FINDINGS: VERTEBRAE: Vertebral body heights maintained. Mild degenerative endplate changes without significant bone marrow signal abnormality. VERTEBRAL ALIGNMENT: No anterior or posterior subluxation. SPINAL CORD: Cervical cord signal and morphology within normal limits. SOFT TISSUES: No prevertebral fluid collection. INTERVERTEBRAL DISCS: C2-3: No significant posterior disc protrusion, central canal stenosis, or foraminal narrowing. C3-4: Mild disc bulge without significant central canal stenosis or foraminal narrowing. C4-5: Mild disc bulge with uncovertebral and facet arthropathy resulting in minimal narrowing of the thecal sac and mild bilateral foraminal narrowing. C5-6: Mild posterior disc protrusion increased in size from prior with uncovertebral and facet arthropathy resulting in mild central canal stenosis and bilateral foraminal narrowing. C6-7, C7-T1: No significant posterior disc protrusion, central canal stenosis, or foraminal narrowing. MRI/Spine Cervical (Routine) IMPRESSION: Mild multilevel degenerative disc disease, progressed at C5-6. Electronically Signed: Cristina Bush MD at 15:38 EDT ,
== END | disposition home or self-care (01) ==
LOC: MRI 06:31
PROVIDERS: PCP Family Medicine; Referring Provider Orthopaedic Surgery; Visit Provider Orthopaedic Surgery
DX: M50.30 Other cervical disc degeneration, unspecified cervical region (principal)
CPT/HCPCS: 72141

== ENCOUNTER → 2022-10-21 | Outpatient (CLI) | payer OTHER, SELFPAY ==
--- NOTE | 2022-10-21 11:31 | RAD_ITS ---
EXAM: XR RIGHT TOES, 2 OR MORE VIEWS CLINICAL INDICATION: INJURY/ POSSIBLE FRACTURE TECHNIQUE: Frontal, lateral and oblique views of the toes of the right foot. This report was created using [employer] report generation technology. COMPARISON: None. FINDINGS: BONES/JOINTS: Unremarkable. No acute fracture. No dislocation. SOFT TISSUES: Unremarkable. No radiopaque foreign body. RAD/Toe(s) Min 2 Views IMPRESSION: Negative right toe x-rays. Electronically Signed: John Haque MD at 18:27 EST Reading Location ID and State: [facility] / [place] , Service support ,
== END | disposition home or self-care (01) ==
LOC: RAD 11:29
PROVIDERS: PCP Family Medicine; Referring Provider Family Medicine; Visit Provider Family Medicine
DX: S99.921A Unspecified injury of right foot, initial encounter (principal); M79.674 Pain in right toe(s)
CPT/HCPCS: 73660

== ENCOUNTER 2022-11-16 08:13 | Emergency (ER) | payer OTHER, SELFPAY ==
[2022-11-16 08:14] VITALS: BP 128/94; PULSE 95; RESP 14; TEMP 36.8; O2SAT 97; BMI 21.9
[2022-11-16 08:26] VITALS: BP 131/81; PULSE 93; RESP 18; O2SAT 98
--- NOTE | 2022-11-16 08:42 | EKG12_ITS ---
Test Reason : CP Blood Pressure : / mmHG Vent. Rate : 080 BPM Atrial Rate : 080 BPM P-R Int : 124 ms QRS Dur : 068 ms QT Int : 376 ms P-R-T Axes : 022 064 029 degrees QTc Int : 433 ms Normal sinus rhythm Normal ECG Confirmed by BLAYNE VAZQUEZ, SENIA ([id number]), image editor AVINASH RAMIREZ ([id number]) on 11/18/2022 9:19:12 AM Referred By: Confirmed By:SENIA CISNEROS MD
--- NOTE | 2022-11-16 08:43 | EDS_ITS ---
HPI History of Present Illness Chief Complaint: Chest Pain Informant: patient Onset/Context/Timing Onset: Yesterday Activity at onset: gradual, onset and activity on onset (sitting, resting) Timing: Continuous and Waxes and wanes Quality: Positive for Indigestion Location: Substernal (lower) Current Severity: Mild Maximum Severity: Moderate Worsened By: Nothing Relieved By: Nothing (hasn't tried anything in particular) Associated Symptoms: Positive for Nausea (not new) and - (malaise, discomfort right neck/jaw/behind R ear); Negative for Vomiting, Diaphoresis, Dyspnea, Cough, Fever, Lightheadedness or Palpitations [facility] Medical History (Updated 11/16/22 @ 11:[address] Jairo Ramon MD) Anxiety Blood disorder Cervical paraspinal muscle spasm Cervical strain Endometriosis determined by laparoscopy Factor V Leiden Gallbladder polyp History of colitis History of echocardiogram History of IBS History of irregular heartbeat Hx of flexible sigmoidoscopy Injury of head and neck Mitral valve prolapse Non-smoker Wears contact lenses Wears glasses Home Medications lorazepam 0.5 mg tablet 0.25 mg PO DAILY PRN PRN Anxiety 01/18/14 [History Last Taken 3 Months Ago ~08/16/22] ustekinumab 45 mg/0.5 mL subcutaneous solution (Stelara) 45 mg subcut .[id number] COLITIS/PSORISIS 06/24/20 [History Last Taken 10/27/22] buspirone 5 mg tablet 7.5 mg PO BID ANXIETY 11/16/22 [History Last Taken 2 Weeks Ago ~11/02/22] clobetasol-emollient 0.05 % topical cream 1 applic topical UD PRN SCLEROSIS 11/16/22 [History Last Taken 2 Weeks Ago ~11/02/22] estradiol 0.01% (0.1 mg/gram) vaginal cream (Estrace) See Rx Instructions vaginal .COMPLEX PRN BLOOD FLOW 11/16/22 [History Last Taken Unknown] ibuprofen 800 mg tablet 800 mg PO 4XD PRN Pain 11/16/22 [History Last Taken 2 Months Ago ~09/16/22] pantoprazole 40 mg tablet,delayed release 40 mg PO DAILY #30 tabs 11/16/22 [Rx Last Taken Unknown] Allergy/AdvReac Type Severity Reaction Status Date / Time diazepam [From Valium] Allergy Other Verified 11/16/22 08:17 oxycodone HCl [From Percocet] Allergy Other Verified 11/16/22 08:17 Penicillins Allergy Swelling Verified 11/16/22 08:17 zolpidem tartrate Allergy Other Verified 11/16/22 08:17 [From Ambien] Family History Sister Asthma Colon cancer Mother Diabetes Heart disease Hypertension CVA (cerebral vascular accident) Surgical History H/O bilateral salpingectomy History of breast augmentation History of colonoscopy (~06/2017) History of dilation and curettage (~2004) S/P laparoscopic cholecystectomy Social History Smoking Status: Never smoker alcohol intake: current alcohol intake frequency: a few times a week substance use type: does not use caffeine: Yes what type of physical activity do you participate in: walking and running seatbelt use: always additional social history: [facility] surgery ROS ROS ED Constitutional Constitutional ED: Reports malaise; Denies chills or fever(s) Eyes Eyes: Denies change in vision or diplopia ENT ENT ED: Denies rhinorrhea or sore throat Cardiovascular Cardiovascular: Reports as per HPI, chest pain and radiating jaw, neck or arm pain; Denies palpitations Respiratory/Chest Respiratory/Chest: Denies cough or dyspnea Gastrointestinal Gastrointestinal: Denies abdominal pain, diarrhea, nausea or vomiting Genitourinary Genitourinary ED: Denies dysuria or hematuria Musculoskeletal Musculoskeletal: Denies back pain or neck pain Integumentary Denies abscess or rash Neurologic Neurologic: Denies headache(s), paresthesias or weakness Psychiatric Psychiatric: Denies anxiety or suicidal thoughts EXAM Physical Exam Const Vital Signs: 11/16/22 08:14 11/16/22 08:26 11/16/22 08:47 Temperature 98.3 F Temperature Source Temporal Pulse Rate 95 93 Respiratory Rate 14 18 Blood Pressure 128/94 H 131/81 H Blood Pressure Mean 105 97 Pulse Ox 97 98 Oxygen Delivery Method Room Air Room Air Room Air 11/16/22 09:13 Temperature Temperature Source Pulse Rate 68 Respiratory Rate 15 Blood Pressure 119/71 Blood Pressure Mean 87 Pulse Ox 97 Oxygen Delivery Method Room Air Positive well nourished and well developed General Appearance ED: well developed and NAD HEENT Reports moist mucous membranes normocephalic and atraumatic Eyes PERRL and EOMs intact bilaterally Neck full ROM and supple Chest Wall inspection of chest normal and palpation of chest normal Resp normal respiratory effort and clear to auscultation bilaterally Cardio regular rate, regular rhythm and no murmurs Rate: Negative for tachycardic GI non-tender and non-distended Auscultation: normoactive bowel sounds Palpation: soft Back/Spine no CVA tenderness General Back: other FROM Extremity normal to inspection General Extremety ED: Negative for edema, pulses abnormal or tenderness General Extremity: Negative for edema or pulses abnormal Neuro oriented x3, CN's II-XII intact bilaterally, no sensory deficits noted and gait normal Sensorium / Orientation: awake and alert Motor Exam: strength 5/5 throughout Psych mental status grossly normal Skin no rashes or lesions noted and no wounds Heart Score History: Moderately Suspicious ECG: Normal Age: >45 - <65 years Risk Factors: No Risk Factors Troponin: </= Normal Limit Score: 2 MDM MDM MDM Narrative Medical decision making narrative: Considering cardiac etiologies here, a work-up was obtained including an EKG which on my interpretation is normal, CBC, BMP, initial high-sensitivity tropon in, as well as a 2-hour repeat. All of this is normal including both troponins which are less than 3. Initially the patient declined any treatments, she later excepted them, and we discussed options she was given Mylanta and a Protonix. She does feel this is indigestion, I think it certainly is more likely to be GI in etiology than cardiac given her low heart score and negative work-up, I am co mfortable with her being discharged to follow-up as an outpatient as is she. She is amenable to trying daily Protonix until then. Lab Data Attestation: I reviewed the patient's lab results. Labs: Laboratory Results - last 24 hr 11/16/22 11/16/22 11/16/22 08:31 10:42 Unknown WBC 8.5 RBC 4.64 Hgb 14.2 Hct 41.4 MCV 89.2 MCH 30.6 MCHC 34.3 RDW Std Deviation 42.5 RDW Coeff of Angy 13.0 Plt Count 245 MPV 10.4 Immature Gran % (Auto) 0.200 Neut % (Auto) 72.4 H Lymph % (Auto) 18.6 L [place] % (Auto) 6.8 Eos % (Auto) 1.5 Baso % (Auto) 0.5 Absolute Neuts (auto) 6.2 Absolute Lymphs (auto) 1.59 Nucleated RBC % 0 Sodium 140 Potassium 4.3 Chloride 106 Carbon Dioxide 27.0 Anion Gap 7 BUN 17 Creatinine 0.76 Estim Creat Clear Calc 63.04 Est GFR (MDRD) Af Amer 101 Est GFR (MDRD) Non-Af 83 BUN/Creatinine Ratio 22.5 H Glucose 113 H Calcium 9.4 Troponin I High Sens < 3 L < 3 L Radiography Chest X-Ray - ED: 2 View, Read by ED Physician and No Acute Disease Diagnostic Testing: Clinical Impression(s) from Imaging Studies Chest X-Ray 11/16/22 09:00 IMPRESSION: Degenerative changes, as described above. No demonstrated acute cardiopulmonary process. Electronically Signed: Arie Reagan MD at 9:20 EST Reading Location ID and State: [address] [place] [address] , Service support , Rhythm Strip Rhythm Strip: Sinus Rhythm Rate: 80 Ectopy: None EKG Initial EKG: Attestation: I personally reviewed and interpreted this EKG as follows: Interpretation: Sinus Rhythm and No Acute Injury Pattern Comments: normal EKG Discharge Plan Triage Chief Complaint: Chest Pain ED Provider: Jairo Ramon Dx/Rx/DC Orders Clinical Impression: Chest pain, unspecified Instructions: ED Chest Pain, Uncertain Cause Prescriptions: New pantoprazole 40 mg tablet,delayed release (DR/EC) 40 mg PO DAILY Qty: 30 0RF No Action Stelara 45 mg/0.5 mL solution 45 mg SC .[id number] lorazepam 0.5 MG tablet 0.25 mg PO DAILY PRN PRN (Reason: Anxiety) ibuprofen 800 mg tablet 800 mg PO 4XD PRN (Reason: Pain) Label Comments: TAKE 1 TABLET BY MOUTHMFOUR TIMES A DAY WITHdFOOD OR MILK *MAX OF 3 PER DAY* buspirone 5 mg tablet 7.5 mg PO BID estradiol [Estrace] 0.01 % (0.1 mg/gram) cream See Rx Instructions vaginal .COMPLEX PRN (Reason: BLOOD FLOW) Rx Instructions: use fingertip amount or 1-2g every night vaginally x 2 weeks, then 1-3x weekly for maintenance clobetasol-emollient 0.05 % cream 1 applic topical UD PRN (Reason: SCLEROSIS) Rx Instructions: Apply as directed prn Primary Care Provider: Camila Madsen Referrals: Camila Madsen DO [Primary Care Provider] - 1-2 Weeks Disposition Disposition: Home, Self Care
[2022-11-16 08:50] LABS: Absolute Lymphocyte Count 1.59 X10^3/uL (0.83-4.51); Absolute Neutrophil Count 6.2 X10^3/uL (2.0-7.7); Basophil# 0.04 X10^3/uL; Basophil% 0.5 % (0-1); Eosinophil# 0.13 X10^3/uL; Eosinophils% 1.5 % (0-5); Hematocrit 41.4 % (37-47); Hemoglobin 14.2 g/dL (12.0-15.0); Lymphocyte # 1.59 X10^3/ul (0.83-4.51); Lymphocyte % 18.6 % (19-41); Mean Corp Hgb Conc 34.3 g/dL (32-36); Mean Corpuscular Hgb 30.6 pg (27.0-32.0); Mean Corpuscular Volume 89.2 fL (81-99); Mean Platelet Vol. 10.4 fl (6.2-12.0); Monocyte# 0.58 X10^3/uL; Monocyte% 6.8 % (0-10); NRBC Flagged by Analyzer 0 % (0-5); Neutrophil # 6.18 X10^3/uL (2.7-7.7); Neutrophil % 72.4 % (47-70); Platelet Count 245 K/mm3 (150-450); RBC Distribution Width SD 42.5 fl (35.1-43.9); Red Blood Count 4.64 M/mm3 (4.2-5.4); White Blood Count 8.5 K/mm3 (4.4-11.0)
--- NOTE | 2022-11-16 09:00 | RAD_ITS ---
STUDY: X-RAY CHEST REASON FOR EXAM: Female, 57 years old. chest pain TECHNIQUE: Single AP portable view of the chest. COMPARISON: September 01, 2016 FINDINGS: The lungs are clear and expanded. There is no demonstrated pleural abnormality. Normal size heart. Normal mediastinum and alden. Normal visualized pulmonary arteries. There is atherosclerotic calcification of the aortic arch with tortuosity. There are diffuse degenerative changes of the visualized thoracic spine. Normal visualized ribs, clavicles, and shoulders. There is no demonstrated abnormality of the visualized soft tissue structures of the upper abdomen. RAD/Chest PA and Lateral IMPRESSION: Degenerative changes, as described above. No demonstrated acute cardiopulmonary process. Electronically Signed: Arie Reagan MD at 9:20 EST ,
[2022-11-16 09:12] LABS: Anion Gap 7 (5-15); BUN 17 mg/dL (7-18); BUN/Creat Ratio 22.5 RATIO (10-20); Calcium,Total 9.4 mg/dL (8.5-10.1); Chloride 106 mmol/L (98-107); Creatinine, Serum 0.76 mg/dL (0.55-1.02); EST Glomerular Filtration Rate 83 mL/min (>60); Est Glom Filt Rate - Afr Amer 101 mL/min (>60); Estimated Creatinine Clearance 63.04 ml/min; Glucose 113 mg/dL (74-106); Potassium 4.3 mmol/L (3.5-5.1); Sodium Level 140 mmol/L (136-145); Troponin-I HS (w/2H Reflex) < 3 pg/mL (3.0-54.0)
[2022-11-16 09:13] VITALS: BP 119/71; PULSE 68; RESP 15; O2SAT 97
[2022-11-16 10:00] VITALS: BP 119/70; PULSE 69; RESP 16; O2SAT 97
[2022-11-16 10:48] LABS: Reflex Troponin-HS? (from REC) Y
[2022-11-16 11:06] LABS: Troponin-I HS < 3 pg/mL (3.0-54.0)
[2022-11-16] MEDS: Mag Hydrox/Al Hydrox/Simeth 30 ML UDC PO (11:37)
[2022-11-16] MEDS: Pantoprazole Sodium 40 MG Tablet PO (11:37)
[2022-11-16 11:42] VITALS: BP 128/76; PULSE 68; RESP 14; O2SAT 98
== END 2022-11-16 11:43 | disposition home or self-care (01) ==
PROVIDERS: Emergency Provider Emergency Medicine; PCP Family Medicine; Visit Provider Emergency Medicine
DX: R07.9 Chest pain, unspecified (principal); K30 Functional dyspepsia; R11.0 Nausea
CPT/HCPCS: 71046; 80048; 84484; 85025; 93005; 99285; A4216

== ENCOUNTER → 2023-01-13 | Outpatient (CLI) | payer OTHER, SELFPAY ==
[2023-01-15 15:07] LABS: QNTFERON TB Mitogen Value > 10.00 IU/mL (.); QNTFERON TB Nil Value 0 IU/mL (.); QNTFERON TB1+ Ag Value 0.01 IU/mL (.); QNTFERON TB2+ Ag Value 0.02 IU/mL (.)
[2023-01-16 14:01] LABS: QNTIFERON TB Positive Criteria Negative (Negative)
== END | disposition home or self-care (01) ==
LOC: LAB 12:11
PROVIDERS: PCP Family Medicine; Visit Provider Dermatology
DX: L40.0 Psoriasis vulgaris (principal); L20.89 Other atopic dermatitis
CPT/HCPCS: 36415; 86480

== ENCOUNTER → 2024-01-23 | Outpatient (CLI) | payer OTHER, SELFPAY ==
--- NOTE | 2024-01-23 12:05 | RAD_ITS ---
STUDY: X-RAY - LEFT ELBOW REASON FOR EXAM: Female, 58 years old. STRAIN OF MUSCLE TECHNIQUE: 3 views of the left elbow. COMPARISON: None. FINDINGS: Normal visualized humerus, radius and ulna. Normal radiocapitellar and ulnotrochlear articulations. The soft tissue structures are unremarkable. There is no demonstrated fracture. RAD/Elbow min 3 Views IMPRESSION: No demonstrated fracture. Electronically Signed: Shane Bello MD at 15:16 EDT ,
--- OUTSIDE RECORDS SUMMARY | 2024-01-23 13:27 | XMS RPT_ITS | CCD ---
Author Name Unknown Address [address] [place] [address] Organization [facility] Care Team Providers Care Medical Leader Name Role Phone Lynette Ferreira LPN Unavailable Unavailable Stefan LOVE, Rasheed Puente Unavailable Allergies Allergy Classification Reported Allergen(s) Allergy Type Date of Onset Reaction(s) Facility (2 sources) acetaminophen / oxyCODONE drug allergy increased heartrate [facility] Work Phone: (2 sources) escitalopram drug allergy 5 fatigue, dizziness [facility] Work Phone: (2 sources) penicillin drug allergy 1 SWELLING AND RASH [facility] Work Phone: (2 sources) zolpidem drug allergy chills, SOB [facility] Work Phone: Medications Completed/Discontinued Medications Medication Drug Class(es) Dates Sig (Normalized) Sig (Original) 24 hr buPROPion hydrochloride 300 mg extended release oral tablet (4 sources) Aminoketone Start: 04-20-2011 End: 12-11-2012 take 1 tablet by mouth once daily WELLBUTRIN XL 300 MG [id number] One tablet by mouth daily BUPROPION HCL [id number] Gricelda Gasca Problems Active Problems Problem Classification Problem Date Documented Date Episodic/Chronic Disorders of lipid metabolism (2 sources) Hyperlipidemia; Translations: [Hyperlipidemia, unspecified] Onset: 10-31-2013 10-31-2013 Chronic Heart valve disorders (2 sources) Mitral valve prolapse; Translations: [Nonrheumatic mitral (valve) prolapse] Onset: 10-31-2013 10-31-2013 Chronic Mood disorders (2 sources) Mixed anxiety and depressive disorder; Translations: [Other specified anxiety disorders] Onset: 07-29-2014 07-29-2014 Chronic Other and unspecified benign neoplasm (2 sources) Benign neoplasm of meninges; Translations: [Benign neoplasm of meninges, unspecified] Onset: 04-20-2011 04-20-2011 Chronic Other skin disorders (2 sources) Lichen sclerosus et atrophicus; Translations: [Lichen sclerosus et atrophicus] Onset: 07-29-2014 07-29-2014 Chronic Unclassified (1 source) Adult health examination ; Translations: [Encounter for general adult medical examination without abnormal findings] Onset: 06-26-2015 06-26-2015 Unclassified (1 source) Well woman health examination ; Translations: [Encounter for gynecological examination (general) (routine) without abnormal findings] Onset: 12-26-2014 12-26-2014 Past or Other Problems Problem Classification Problem Date Documented Da te Episodic/Chronic Abdominal pain (2 sources) Generalized abdominal pain; Translations: [Generalized abdominal pain] Onset: 04-24-2015 05-11-2015 Episodic Cardiac dysrhythmias (2 sources) Palpitations; Translations: [Palpitations] Onset: 05-05-2016 05-06-2016 Episodic Conditions associated with dizziness or vertigo (2 sources) Dizziness; Translations: [Dizziness and giddiness] Onset: 09-09-2015 10-12-2015 Episodic Genitourinary symptoms and ill-defined conditions (2 sources) Dysuria; Translations: [Dysuria] Onset: 11-22-2014 11-22-2014 Episodic Malaise and fatigue (2 sources) Fatigue; Translations: [Other fatigue] Onset: 09-13-2014 09-13-2014 Episodic Nonmalignant breast conditions (2 sources) Breast lump; Translations: [Unspecified lump in breast] Onset: 04-24-2015 05-11-2015 Episodic Nonspecific chest pain (2 sources) Chest pain; Translations: [Chest pain, unspecified] Onset: 10-31-2013 11-01-2013 Episodic Other bone disease and musculoskeletal deformities (2 sources) Clavicle pain; Translations: [Other specified disorders of bone, other site] Onset: 09-09-2015 10-12-2015 Episodic Other connective tissue disease (4 sources) Lateral epicondylitis, unspecified elbow; Translations: [Rotator cuff syndrome] 10-11-2012 Episodic Other connective tissue disease (1 source) Rotator cuff syndrome; Translations: [Unspecified rotator cuff tear or rupture of left shoulder, not specified as traumatic] 10-11-2012 Episodic Other connective tissue disease (1 source) Trochanteric bursitis; Translations: [Trochanteric bursitis, unspecified hip] 01-08-2014 Episodic Other connective tissue disease (1 source) Impingement syndrome of shoulder region; Translations: [Impingement syndrome of unspecified shoulder] 01-08-2014 Episodic Other ear and sense organ disorders (6 sources) Otitis externa; Translations: [Acute otitis externa] Onset: 10-03-2014 Resolved: 07-14-2016 06-29-2016 Episodic Other ear and sense organ disorders (1 source) Swelling of ear structure; Translations: [Other specified disorders of ear, unspecified ear] Onset: 02-13-2017 02-13-2017 Episodic Other ear and sense organ disorders (1 source) Acute otitis externa; Translations: [Unspecified acute noninfective otitis externa, left ear] Onset: 02-13-2017 02-13-2017 Episodic Other gastrointestinal disorders (2 sources) Chronic constipation; Translations: [Other constipation] Onset: 04-24-2015 05-11-2015 Episodic Other injuries and conditions due to external causes (1 source) Abrasion; Translations: [Other injury of unspecified body region] Onset: 10-23-2014 10-23-2014 Episodic Other non-traumatic joint disorders (6 sources) Pain in joint, shoulder region; Translations: [Pain in unspecified shoulder] Onset: 10-23-2014 10-23-2014 Episodic Other non-traumatic joint disorders (1 source) Pain in unspecified shoulder; Translations: [Pain in unspecified shoulder] 10-11-2012 Episodic Other non-traumatic joint disorders (1 source) Pain in elbow; Translations: [Pain in left elbow] 10-11-2012 Episodic Other non-traumatic joint disorders (1 source) Hip pain; Translations: [Pain in unspecified hip] 01-08-2014 Episodic Other upper respiratory infections (2 sources) Upper respiratory infection; Translations: [Acute upper respiratory infection, unspecified] Onset: 05-06-2017 05-06-2017 Episodic Spondylosis; intervertebral disc disorders; other back problems (2 sources) Pain in the coccyx; Translations: [Other disorders of coccyx] Onset: 09-13-2014 09-13-2014 Episodic Sprains and strains (2 sources) Sprain of hip; Translations: [Unspecified sprain of unspecified hip] 02-18-2014 Episodic Superficial injury; contusion (5 sources) Bruise of head; Translations: [Abrasion] Onset: 04-20-2011 04-20-2011 Episodic Unclassified (2 sources) Insomnia; Translations: [Psychophysiologic insomnia] Onset: 07-29-2014 07-29-2014 Episodic Results Test Name Value Interpretation Reference Range Facil ity Vital Signs Date Time Vital Sign Value Performing Clinician Faci lity 05-06-2017 11:52-0400 BMI (Body Mass Index) 20.25 kg/m2 Lynette Ferreira [facility] Work Phone: 05-06-2017 11:52-0400 Body Temperature 99.2 [degF] Lynette Ferreira [facility] Work Phone: 05-06-2017 11:52-0400 BP Diastolic 56 mm[Hg] Lynette Ferreira [facility] Work Phone: 05-06-2017 11:52-0400 BP Systolic 104 mm[Hg] Lynette Ferreira [facility] Work Phone: 05-06-2017 11:52-0400 Height 158.12 cm Lynette Ferreira [facility] Work Phone: 05-06-2017 11:52-0400 Pulse (Heart Rate) 98 /min Lynette Ferreira [facility] Work Phone: 05-06-2017 11:52-0400 Pulse Oximetry 98 % Lynette Ferreira [facility] Work Phone: 05-06-2017 11:52-0400 Respiratory Rate 16 /min Lynette Ferreira [facility] Work Phone: 05-06-2017 11:52-0400 Weight 50.62 kg Lynette Ferreira [facility] Work Phone: 09-09-2015 12:30-0400 BSA (Body Surface Area) 1.57 m2 [facility] Work Phone: 05-13-2015 11:10-0400 Body surface area Derived from formula 75.20 mL/min Rasheed Stefan LOVE [facility] Work Phone: 10-31-2013 15:05-0500 Heart rate 402 ms Rasheed Stefan LOVE [facility] Work Phone: 10-31-2013 15:05-0500 Heart rate 77 /min Rasheed Aviles IVAN [facility] Work Phone: Procedures Date Procedure Procedure Detail Performing Clinician Start: 04-29-2016 End: 04-29-2016 *CBC with Differential Gregorio Mena D O Work Phone: Start: 04-29-2016 End: 04-29-2016 Ferritin Gregorio Mena DO Work Phone: Start: 04-29-2016 End: 04-29-2016 Thyroid stimulating hormone (TSH) Gregorio Mena DO Work Phone: Start: 06-26-2015 Adult health examination Well adult/preventative care Rasheed LOVE Start: 04-21-2015 End: 04-21-2015 Urinalysis Rasheed LOVE Start: 12-26-2014 Well woman health examination Mthr-cjprg-fvreehtgtm c exam Rasheed LOVE Start: 11-27-2014 End: 11-28-2014 Urinalysis complete panel - Urine Camila Ti Malys, DO Work Phone: Start: 11-22-2014 End: 11-22-2014 Urinalysis complete panel - Urine Camila Ti Malys, DO Work Phone: Start: 09-13-2014 End: 09-18-2014 *CBC with Differential Camila Ti Malys, DO Work Phone: Start: 09-13-2014 End: 09-18-2014 *CMP Complete Metabolic Panel Camila Ti Malys, DO Work Phone: Start: 09-13-2014 End: 09-18-2014 Thyroid stimulating hormone (TSH) Camila Ti Malys, DO Work Phone: Start: 09-13-2014 End: 09-18-2014 Thyroxine (T4) free Camila Madsen, DO Work Phone: Plan of Treatment Date Care Activity Detail Author Start: 05-06-2017 End: 05-06-2017 Appointment Appointment [facility] Work Phone: Start: 06-29-2016 End: 06-30-2016 ENT referral ENT referral Iker Baird MD, [facility], [address] [place], [address] [facility] Work Phone: Start: 05-06-2016 End: 05-06-2016 Echocardiography Echocardiogram (complete) [facility] Work Phone: Start: 05-05-2016 End: 05-19-2016 Cardiac Referral Cardiac Referral Lamont Rubio MD, [facility], [address], [place], [address] [facility] Work Phone: Start: 04-29-2016 End: 04-29-2016 *CBC with Differential *CBC with Differential [facility] Work Phone: Start: 04-29-2016 End: 04-29-2016 Ferritin *Ferritin [facility] Work Phone: Start: 04-29-2016 End: 04-29-2016 Thyroid stimulating hormone (TSH) *TSH [facility] Work Phone: Start: 01-13-2016 End: 05-19-2016 Gynecology & Obstetrics Gynecology & Obstetrics Analy [facility], [address], [place], [address] [facility] Work Phone: Start: 11-18-2015 End: 12-30-2015 Ophthalmology Referral Ophthalmology Referral [facility] Provider, [address] [place], [address] [facility] Work Phone: Start: 11-18-2015 End: 12-30-2015 Other Referral Other Referral [facility] Provider, [address] [place], [address] [facility] Work Phone: Start: 06-26-2015 End: 06-26-2015 Us exam, breast(s) US Breast(s) [facility] Work Phone: Start: 12-26-2014 End: 09-09-2015 Other Referral Other Referral Radha Cornejo, [address] [place], [address] [facility] Work Phone: Start: 11-27-2014 End: 11-28-2014 Urinalysis complete panel - Urine *UAC- Urinalysis, Complete w/ Micro [facility] Work Phone: Start: 11-22-2014 End: 11-22-2014 Urinalysis complete panel - Urine *UAC- Urinalysis, Complete w/ Micro [facility] Work Phone: Start: 10-21-2014 End: 10-21-2014 ENT referral ENT referral [facility], [address] [place], [address] [facility] Work Phone: Start: 10-21-2014 End: 10-21-2014 Other Referral Other Referral [facility] Provider, [address] [place], [address] [facility] Work Phone: Start: 09-13-2014 End: 09-18-2014 *CBC with Differential *CBC with Differential [facility] Work Phone: Start: 09-13-2014 End: 09-18-2014 *CMP Complete Metabolic Panel *CMP Complete Metabolic Panel [facility] Work Phone: Start: 09-13-2014 End: 09-18-2014 Thyroid stimulating hormone (TSH) *TSH [facility] Work Phone: Start: 09-13-2014 End: 09-18-2014 Thyroxine (T4) free *T4 free [facility] Work Phone: Start: 10-31-2013 End: 11-01-2013 Echocardiography Echocardiogram (complete) [facility] Work Phone: Start: 10-31-2013 End: 11-01-2013 Electrocardiogram, complete EKG (In office) [facility] Work Phone: Start: 10-31-2013 End: 11-01-2013 Follow Up Appt 1 year Follow Up Appt 1 year [facility] Work Phone: Start: 10-31-2013 End: 11-01-2013 PFM PFM [facility] Work Phone: Start: 10-31-2013 End: 11-01-2013 Stress Echocardiogram (treadmill) Stress Echocardiogram (treadmill) [facility] Work Phone: Patient Education [email or web address] [facility] Work Phone: Additional Source Comments FOR RECORDS PERTAINING TO PATIENTS WHO ARE OR HAVE BEEN ENROLLED IN A CHEMICAL DEPENDENCY/SUBSTANCEABUSE PROGRAM, SOME INFORMATION MAY BE OMITTED. This clinical summary was aggregated from multiple sources. Caution should be exercised in using it in the provision of clinical care. This summary normalizes information from multiple sources, and as a consequence, information in this document may materially change the coding, format and clinical context of patient data. In addition, data may be omitted in some cases. CLINICAL DECISIONS SHOULD BE BASED ON THE PRIMARY CLINICAL RECORDS. [email or web address] [facility]. provides no warranty or guarantee of the accuracy or completeness of information in this document.
== END | disposition home or self-care (01) ==
LOC: RAD 11:45
PROVIDERS: PCP Family Medicine; Referring Provider Student in an Organized Health Care Education/Training Program; Visit Provider Student in an Organized Health Care Education/Training Program
DX: S46.312A Strain of muscle, fascia and tendon of triceps, left arm, initial encounter (principal); X58.XXXA Exposure to other specified factors, initial encounter
CPT/HCPCS: 73080

== ENCOUNTER → 2024-05-18 | Outpatient (CLI) | payer OTHER, SELFPAY ==
--- NOTE | 2024-05-18 09:05 | RAD_ITS ---
STUDY: X-RAY - RIGHT KNEE REASON FOR EXAM: Female, 58 years old. Pain. TECHNIQUE: 4 views of the right knee. COMPARISON: None. FINDINGS: Normal visualized distal femur. Normal visualized proximal tibia and fibula. Normal proximal tibiofibular articulation. There is no demonstrated fracture. Normal medial femorotibial compartment. Normal lateral femorotibial compartment. Normal patellofemoral articulation. There is a tiny joint effusion. The soft tissue structures are unremarkable. RAD/Knee 4 or More Views IMPRESSION: Tiny joint effusion. No demonstrated fracture. Electronically Signed: Shane Bello MD at 9:29 EDT ,
== END | disposition home or self-care (01) ==
LOC: MTRAD 09:04
PROVIDERS: PCP Family Medicine; Referring Provider Orthopaedic Surgery; Visit Provider Orthopaedic Surgery
DX: M25.561 Pain in right knee (principal)
CPT/HCPCS: 73564

== ENCOUNTER → 2024-05-24 | Outpatient (CLI) | payer OTHER, SELFPAY ==
[2024-05-24 17:22] LABS: Absolute Lymphocyte Count 1.92 X10^3/uL (0.83-4.51); Absolute Neutrophil Count 3.4 X10^3/uL (2.0-7.7); Basophil# 0.04 X10^3/uL; Basophil% 0.7 % (0-1); Eosinophil# 0.13 X10^3/uL; Eosinophils% 2.2 % (0-5); Hematocrit 41.5 % (37-47); Hemoglobin 13.6 g/dL (12.0-15.0); Lymphocyte # 1.92 X10^3/ul (0.83-4.51); Lymphocyte % 31.9 % (19-41); Mean Corp Hgb Conc 32.8 g/dL (32-36); Mean Corpuscular Hgb 29.5 pg (27.0-32.0); Mean Platelet Vol. 10.7 fl (6.2-12.0); Monocyte# 0.51 X10^3/uL; Monocyte% 8.5 % (0-10); NRBC Flagged by Analyzer 0 % (0-5); Neutrophil % 56.5 % (47-70); Platelet Count 268 K/mm3 (150-450); RBC Distribution Width CV 13.5 % (11.6-14.6); RBC Distribution Width SD 44.5 fl (35.1-43.9); Red Blood Count 4.61 M/mm3 (4.2-5.4)
[2024-05-24 17:59] LABS: ALB/GLOB Ratio 1.1 RATIO (0.9-2.4); AST(SGOT) 30 U/L (15-37); Alanine Aminotransfer ALT/SGPT 25 U/L (13-56); Albumin, Serum 3.8 g/dL (3.2-5.0); Alkaline Phosphatase 99 U/L (45-117); Anion Gap 9 (5-15); BUN 13 mg/dL (7-18); BUN/Creat Ratio 18.6 RATIO (10-20); Calcium,Total 9.2 mg/dL (8.5-10.1); Chloride 104 mmol/L (98-107); EST Glomerular Filtration Rate 91 mL/min (>60); Est Glom Filt Rate - Afr Amer 110 mL/min (>60); Globulin 3.6 g/dL (2.2-4.2); Glucose 82 mg/dL (74-106); Potassium 3.9 mmol/L (3.5-5.1); Protein, Total 7.4 g/dL (6.4-8.2); Sodium Level 137 mmol/L (136-145); Thyroid Stim Hormone (TSH) 2.31 uIU/mL (0.358-3.74)
[2024-05-24 18:06] LABS: Vitamin B12 578 pg/mL (211-911); Vitamin D,25 Hydroxy 33.1 ng/mL
== END | disposition home or self-care (01) ==
LOC: VSLAB 13:57
PROVIDERS: PCP Nurse Practitioner Family; Visit Provider Nurse Practitioner Family
DX: F41.9 Anxiety disorder, unspecified (principal); E56.9 Vitamin deficiency, unspecified
CPT/HCPCS: 36415; 80053; 82306; 82607; 84443; 85025

== ENCOUNTER → 2024-06-05 | Outpatient (CLI) | payer OTHER, SELFPAY ==
--- NOTE | 2024-06-05 15:56 | MRI_ITS ---
EXAM: MR RIGHT LOWER EXTREMITY WITHOUT INTRAVENOUS CONTRAST, KNEE CLINICAL INDICATION: PAIN LATERALLY WRAPPING POSTERIORLY, NO KNOW SPECIFIC INJURY TECHNIQUE: Multiplanar and multisequence MR images of the right knee without intravenous contrast. COMPARISON: May 18, 2024 FINDINGS: BONES/JOINTS: Small intraosseous cyst near the base of the medial tibial spine. No other abnormalities. EXTENSOR MECHANISM: Mild edema anterior to the patellar tendon which is intact. No other abnormalities. MEDIAL MENISCUS: Unremarkable. LATERAL MENISCUS: Unremarkable. MEDIAL CAPSULE/SUPPORTING STRUCTURES: Unremarkable. Intact. LATERAL CAPSULE/SUPPORTING STRUCTURES: Unremarkable. Lateral collateral ligamentous complex, inclusive of the popliteal tendon, are intact. ANTERIOR CRUCIATE LIGAMENT: Unremarkable. Intact. POSTERIOR CRUCIATE LIGAMENT: Unremarkable. Intact. MUSCLES: Unremarkable. CARTILAGE: Unremarkable. No focal chondral defects or significant arthritic changes. FLUID: Query sequela of ruptured Irene''s cyst suspected with fluid extending caudally from the expected area of a Irene''s cyst at the posterior medial aspect of the knee. No significant suprapatellar joint effusion. OTHER SOFT TISSUES: See above. MRI/Lower Ext Joint Only (Routine) IMPRESSION: 1. Query sequela of ruptured Irene''s cyst suspected. 2. No other significant internal derangement of the knee. Electronically Signed: Chaz Reza MD at 21:24 EDT ,
== END | disposition home or self-care (01) ==
LOC: MRI 15:52
PROVIDERS: PCP Nurse Practitioner Family; Referring Provider Orthopaedic Surgery; Visit Provider Orthopaedic Surgery
DX: M25.561 Pain in right knee (principal)
CPT/HCPCS: 73721

== ENCOUNTER 2024-08-21 11:29 | Emergency (ER) | payer OTHER, SELFPAY ==
[2024-08-21 11:30] VITALS: BP 153/88; PULSE 98; RESP 16; TEMP 36.5; O2SAT 100; BMI 22.4
--- NOTE | 2024-08-21 11:56 | EX.ED.DYSGE1 ---
HPI History of Present Illness Chief Complaint: Allergic Reaction Narrative Narrative: 58-year-old female past medical history of psoriasis and inflammatory bowel disease presents with possible reaction to her Dupixent that she took last night around 7 PM, approximately 19 hours ago. She relates history that she is under a lot of stress and that her psoriasis is flaring up. It is mainly in the antecubital fossa of both arms. She called her miniature set constructor and she had Dupixent in her refrigerator that she asked if she could take, which was approved so she took it last evening. She presents with possible allergic reaction because she states she woke up this morning with her face red and, burning, and her face was swollen including around her eyes, and her cheeks. She denies any difficulty swallowing or throat closing, no shortness of breath. Her symptoms have improved somewhat with the swelling, but she states that her face is still burning and red. [facility] Medical History Mitral valve prolapse Endometriosis determined by laparoscopy Wears contact lenses Wears glasses Blood disorder Injury of head and neck History of colitis History of IBS Non-smoker History of echocardiogram History of irregular heartbeat Hx of flexible sigmoidoscopy Cervical paraspinal muscle spasm Cervical strain Gallbladder polyp Anxiety Factor V Leiden Home Medications ?Medication ?Instructions ?Recorded ?Last Taken ?Type lorazepam 0.5 mg tablet 0.25 mg PO DAILY PRN PRN Anxiety 01/18/14 3 Months Ago History ~08/16/22 ustekinumab 45 mg/0.5 mL 45 mg subcut .[id number] 06/24/20 10/27/22 History subcutaneous solution (Stelara) COLITIS/PSORISIS estradiol 0.01% (0.1 mg/gram) See Rx Instructions vaginal 11/16/22 Unknown History vaginal cream (Estrace) .COMPLEX PRN BLOOD FLOW ibuprofen 800 mg tablet 800 mg PO 4XD PRN Pain 11/16/22 2 Months Ago History ~09/16/22 buspirone 5 mg tablet 7.5 mg PO BID PRN ANXIETY 05/18/24 Unknown History clobetasol 0.05 % topical ointment 1 applic topical BID 05/18/24 Unknown History dupilumab 100 mg/0.67 mL 200 mg subcut Q2W PRN 05/18/24 Unknown History subcutaneous syringe (Dupixent) famotidine 20 mg tablet (Pepcid) 20 mg PO DAILY #7 tabs 08/21/24 Unknown Rx prednisone 20 mg tablet 40 mg (2 x 20 mg) PO DAILY #14 tabs 08/21/24 Unknown Rx Allergy/AdvReac Type Severity Reaction Status Date / Time diazepam (From Valium) Allergy Other Verified 08/21/24 11:33 oxycodone HCl (From Percocet) Allergy Other Verified 08/21/24 11:33 Penicillins Allergy Swelling Verified 08/21/24 11:33 zolpidem tartrate (From Allergy Other Verified 08/21/24 11:33 Ambien) diphenhydramine (From AdvReac PALPITATION Verified 08/21/24 11:33 Benadryl) S Family History Sister Asthma Colon cancer Mother Diabetes Heart disease Hypertension CVA (cerebral vascular accident) Surgical History H/O bilateral salpingectomy S/P laparoscopic cholecystectomy History of dilation and curettage (~2004) History of colonoscopy (~06/2017) History of breast augmentation Social History Smoking Status: Never smoker alcohol intake: current alcohol intake frequency: a few times a week substance use type: does not use caffeine: Yes what type of physical activity do you participate in: walking and running seatbelt use: always additional social history: [facility] surgery ROS ROS ED ROS Narrative Constitutional: No fever, no chills. HEENT: No sore throat. No neck pain. No loss of vision. No rhinorrhea. Positive facial swelling, facial redness and burning sensation. Cheeks swelling and swelling around eyes. Cardiovascular: No chest pain. No palpitations. No pedal edema. Respiratory: No cough, no shortness of breath. Abdominal: No abdominal pain. No nausea. No vomiting. Neurologic: No headaches. No dizziness. No lightheadedness. Skin: Positive psoriatic flareup bilateral arms no change in color. EXAM Physical Exam Narrative Exam Narrative: Afebrile. Vital signs noted. HEENT examination does show mild erythema with dry skin on forehead, no periorbital edema causing eyes to be swollen shut, PERRL, EOMI. Airway patent. No drooling or trismus. No stridor. No angioedema of tongue. Cardiovascular examination reveals a regular rate and rhythm. Lungs are clear to auscultation bilaterally. No tachypnea, no accessory muscle use, no wheezing. Abdomen soft nontender with normal active bowel sounds. Skin examination does reveal red, raised psoriatic plaques in bilateral antecubital fossa. There is erythema and dry skin on her forehead and on her cheeks as well. Musculoskeletal examination shows her to be moving all extremities. Neurological examination is nonfocal and nonlateralizing. Const Vital Signs: 08/21/24 11:30 08/21/24 12:14 Temperature 97.7 F L 98.2 F Temperature Source Oral Pulse Rate 98 76 Respiratory Rate 16 15 Blood Pressure 153/88 H 137/88 H Blood Pressure Mean 109 104 Pulse Ox 100 100 Oxygen Delivery Method Room Air MDM MDM MDM Narrative Medical decision making narrative: Differential diagnosis includes but not limited to anaphylaxis versus medication reaction versus inflammation of face from psoriasis. I do not feel that epinephrine is indicated as she last took the medication approximately 19 hours ago. Her airway is patent. Pulse ox is 100% on room air without evidence of hypoxia. She is not hypotensive or tachycardic. As her symptoms of swelling have improved and she still has a burning sensation, I do feel she might be developing psoriatic plaques on her face causing the inflammation and swelling. I will treat her with allergic type reaction medications which I think would be helpful as well. She was given a loading dose of prednisone 60 mg orally as well as oral Pepcid, and she states she cannot take Benadryl, but has an Atarax prescription. She was given a Claritin here as an antihistamine. I will write her a prescription for a prednisone burst. She has a follow-up appointment this afternoon in a few hours with her miniature set constructor who could change her medication as needed. I feel that she is safe for discharge with follow-up to dermatology. Return instructions to the emergency department were reviewed. Disposition is discharged home in stable condition. History & Record Review Discussion w/independent historian: Patient and Significant other Discharge Plan Triage Chief Complaint: Allergic Reaction ED Provider: Gonzalez Lima Dx/Rx/DC Orders Clinical Impression: Psoriasis, Facial swelling, Facial burning Instructions: ED ADVERSE DRUG REACTION Allergic, ED Psoriasis Prescriptions: New prednisone 20 mg tablet 40 mg PO DAILY Qty: 14 0RF famotidine [Pepcid] 20 mg tablet 20 mg PO DAILY Qty: 7 0RF No Action Stelara 45 mg/0.5 mL solution 45 mg SC .[id number] clobetasol 0.05 % ointment 1 applic topical BID Dupixent Syringe 100 mg/0.67 mL syringe 200 mg subcut Q2W PRN lorazepam 0.5 MG tablet 0.25 mg PO DAILY PRN PRN (Reason: Anxiety) ibuprofen 800 mg tablet 800 mg PO 4XD PRN (Reason: Pain) Patient Comments: TAKE 1 TABLET BY MOUTHMFOUR TIMES A DAY WITHdFOOD OR MILK *MAX OF 3 PER DAY* estradiol [Estrace] 0.01 % (0.1 mg/gram) cream See Rx Instructions vaginal .COMPLEX PRN (Reason: BLOOD FLOW) Rx Instructions: use fingertip amount or 1-2g every night vaginally x 2 weeks, then 1-3x weekly for maintenance buspirone 5 mg tablet 7.5 mg PO BID PRN (Reason: ANXIETY) Primary Care Provider: Arpita Restrepo Referrals: Arpita Restrepo, FACILITY SPECIALIST-C [Primary Care Provider] - Activity Restrictions/Additional Instructions: Return with increased swelling of the face, sensation of throat closing, difficulty swallowing or breathing, new or worsening symptoms. Follow-up with your miniature set constructor as scheduled today. Print Language: Georgian Disposition Disposition: Home, Self Care Discharge Date/Time: 08/21/24 12:15
[2024-08-21] MEDS: Famotidine 20 MG Tablet PO (12:06)
[2024-08-21] MEDS: predniSONE 20 MG Tablet 60 MG PO (12:06)
[2024-08-21] MEDS: Loratadine 10 MG Tablet PO (12:11)
[2024-08-21 12:14] VITALS: BP 137/88; PULSE 76; RESP 15; TEMP 36.8; O2SAT 100
== END 2024-08-21 12:15 | disposition home or self-care (01) ==
PROVIDERS: Emergency Provider Emergency Medicine; PCP Nurse Practitioner Family; Visit Provider Emergency Medicine
DX: L40.9 Psoriasis, unspecified (principal); R22.0 Localized swelling, mass and lump, head; R20.8 Other disturbances of skin sensation; T50.995A Adverse effect of other drugs, medicaments and biological substances, initial encounter
CPT/HCPCS: 99283

== ENCOUNTER → 2024-10-20 | Outpatient (CLI) | payer OTHER, SELFPAY ==
[2024-10-23 20:08] LABS: QNTFERON TB Mitogen Value > 10.00 IU/mL (.); QNTFERON TB Nil Value 0 IU/mL (.); QNTFERON TB1+ Ag Value 0.03 IU/mL (.); QNTFERON TB2+ Ag Value 0.04 IU/mL (.); QNTIFERON TB Positive Criteria Negative (Negative)
== END | disposition home or self-care (01) ==
LOC: LAB 08:59
PROVIDERS: PCP Nurse Practitioner Family; Referring Provider Dermatology; Visit Provider Dermatology
DX: L82.1 Other seborrheic keratosis (principal); L57.8 Other skin changes due to chronic exposure to nonionizing radiation; L81.4 Other melanin hyperpigmentation; D22.5 Melanocytic nevi of trunk; L40.0 Psoriasis vulgaris; L23.9 Allergic contact dermatitis, unspecified cause; L57.0 Actinic keratosis; D48.5 Neoplasm of uncertain behavior of skin; Z71.89 Other specified counseling; Z79.899 Other long term (current) drug therapy
CPT/HCPCS: 36415; 86480

== ENCOUNTER → 2024-11-22 | Outpatient (CLI) | payer OTHER, SELFPAY ==
[2024-11-22 16:43] LABS: Absolute Lymphocyte Count 2.15 X10^3/uL (0.83-4.51); Basophil# 0.04 X10^3/uL; Basophil% 0.6 % (0-1); Eosinophil# 0.18 X10^3/uL; Eosinophils% 2.6 % (0-5); Hematocrit 40.2 % (37-47); Hemoglobin 13.2 g/dL (12.0-15.0); Lymphocyte # 2.15 X10^3/ul (0.83-4.51); Lymphocyte % 31.4 % (19-41); Mean Corp Hgb Conc 32.8 g/dL (32-36); Mean Corpuscular Hgb 29.7 pg (27.0-32.0); Mean Corpuscular Volume 90.5 fL (81-99); Mean Platelet Vol. 10.6 fl (6.2-12.0); Monocyte# 0.46 X10^3/uL; Monocyte% 6.7 % (0-10); NRBC Flagged by Analyzer 0 % (0-5); Neutrophil # 3.99 X10^3/uL (2.7-7.7); Neutrophil % 58.4 % (47-70); Platelet Count 254 K/mm3 (150-450); RBC Distribution Width CV 13.1 % (11.6-14.6); RBC Distribution Width SD 43.5 fl (35.1-43.9); Red Blood Count 4.44 M/mm3 (4.2-5.4); White Blood Count 6.8 K/mm3 (4.4-11.0)
[2024-11-22 16:58] LABS: Vitamin B12 541 pg/mL (211-911); Vitamin D,25 Hydroxy 29.5 ng/mL
[2024-11-22 17:07] LABS: ALB/GLOB Ratio 1.1 RATIO (0.9-2.4); AST(SGOT) 22 U/L (15-37); Alanine Aminotransfer ALT/SGPT 24 U/L (13-56); Albumin, Serum 3.7 g/dL (3.2-5.0); Alkaline Phosphatase 91 U/L (45-117); Anion Gap 8 (5-15); BUN 16 mg/dL (7-18); BUN/Creat Ratio 23.3 RATIO (10-20); Calcium,Total 9.1 mg/dL (8.5-10.1); Chloride 103 mmol/L (98-107); Creatinine, Serum 0.69 mg/dL (0.55-1.02); EST Glomerular Filtration Rate 92 mL/min (>60); Est Glom Filt Rate - Afr Amer 112 mL/min (>60); Estradiol < 11.0 pg/mL; Globulin 3.5 g/dL (2.2-4.2); Glucose 89 mg/dL (74-106); Protein, Total 7.2 g/dL (6.4-8.2); Sodium Level 137 mmol/L (136-145); T4 Free Direct 0.91 ng/dL (0.76-1.46)
[2024-11-26 13:07] LABS: Anti-Centromere B Ab <0.2 AI (0.0-0.9); Anti-Chromatin 0.2 AI (0.0-0.9); Anti-Jo <0.2 AI (0.0-0.9); Anti-Scleroderma-70 AB <0.2 AI (0.0-0.9); Anti-dsDNA Ab <1 IU/mL (0-9); PROGESTERONE <0.1 ng/mL (.); RNP Ab <0.2 AI (0.0-0.9); SJOGREN'S Anti-SS-A test < 0.2 AI (0.0-0.9); SJOGREN'S Anti-SS-B test < 0.2 AI (0.0-0.9); Smith Ab <0.2 AI (0.0-0.9)
[2024-11-27 12:08] LABS: Testosterone, % Free 2.63 % (0.50-2.80); Testosterone, Free 0.39 ng/dL (0.10-0.85); Testosterone, Total 15 ng/dL (3-67); Thyroglobulin Antibody < 1.0 IU/mL (0.0-0.9); Thyroid Peroxidase AB 15 IU/mL (0-34)
== END | disposition home or self-care (01) ==
LOC: VSLAB 14:00
PROVIDERS: PCP Nurse Practitioner Family; Visit Provider Nurse Practitioner Family
DX: R53.83 Other fatigue (principal); L65.9 Nonscarring hair loss, unspecified
CPT/HCPCS: 36415; 80053; 82306; 82607; 82670; 84144; 84402; 84403; 84439; 84443; 85025; 86225; 86235; 86376; 86800

== ENCOUNTER → 2024-12-29 | Outpatient (CLI) | payer OTHER, SELFPAY ==
--- NOTE | 2024-12-29 10:08 | RAD_ITS ---
PROCEDURE: RIBS UNI MIN 3V W/PA CHEST REASON FOR EXAM: 59-year-old female, fall, anterior left rib pain. TECHNIQUE: Frontal and bilateral oblique views of the left ribs and frontal chest. COMPARISON: Chest radiographs 11/16/2022. FINDINGS: No displaced rib fractures are identified. No suspicious lytic or blastic rib lesions. Thoracolumbar spondylosis. The heart is normal in size. No focal consolidation, pleural effusion or pneumothorax. Stable thoracic calcifications. RAD/Ribs Uni Min 3V w/PA Chest IMPRESSION: NO EVIDENCE OF ACUTE RIB FRACTURE OR PNEUMOTHORAX. Reading Location: [id number]
== END | disposition home or self-care (01) ==
LOC: RAD 10:01
PROVIDERS: PCP Nurse Practitioner Family; Referring Provider Nurse Practitioner Family; Visit Provider Nurse Practitioner Family
DX: R07.81 Pleurodynia (principal); W19.XXXA Unspecified fall, initial encounter
CPT/HCPCS: 71101

== ENCOUNTER → 2025-08-22 | Outpatient (CLI) | payer OTHER, SELFPAY ==
--- NOTE | 2025-08-22 08:59 | BD_ITS ---
PROCEDURE: DEXA BONE DENSITY STUDY 08/22/2025 REASON FOR EXAM: F, age 59 y/o . Postmenopausal. TECHNIQUE: Procedure Code: BDDBD Modality: DX Procedure: DEXA BONE DENSITY STUDY COMPARISON: None FINDINGS: BMD and T-SCORES Lumbar spine: 0.829 g/cm2, T-score -2.0 Levels: L1 through L4 Left femoral neck: 0.618 g/cm2, T-score -2.1 Left total hip: 0.695 g/cm2, T-score -2.0 Right femoral neck: 0.629 g/cm2, T-score -2.0 Right total hip: 0.672 g/cm2, T-score -2.2 The World Health Organization has defined the following categories based on bone density: Normal bone density: T-score equal to or greater than -1.0 Osteopenia: T-score between -1.0 and -2.5 Osteoporosis: T-score equal to or less than -2.5 FRAX (or Comparable) Fracture Risk Assessment: 10 Year Probability of Fracture: Major Osteoporotic Fracture: 12% Hip Fracture: 1.9% (Note: FRAX is not to be reported in setting of normal range bone density, osteoporosis on DEXA, known history of osteoporosis, prior osteoporotic hip or vertebral fracture, or for any patient undergoing pharmacological treatment for bone loss.) The National Osteoporosis Foundation (NOF) recommends pharmacological treatment for patients with a FRAX 10-year risk of 3% or higher for a hip fracture, or 20% or higher for a major osteoporotic fracture, to prevent osteoporosis and reduce fracture risk. The patient does meet the pharmacological treatment recommendations for prevention of osteoporosis. BD/Dexa Bone Density Study IMPRESSION: OSTEOPENIA. Recommend follow-up as clinically warranted. Reading Location: [id number]
== END | disposition home or self-care (01) ==
PROVIDERS: PCP Nurse Practitioner Family; Referring Provider Nurse Practitioner Family; Visit Provider Nurse Practitioner Family
DX: Z13.820 Encounter for screening for osteoporosis (principal); Z78.0 Asymptomatic menopausal state
CPT/HCPCS: 77080

== ENCOUNTER → 2025-09-10 | Outpatient (CLI) | payer OTHER, SELFPAY ==
--- NOTE | 2025-09-10 08:58 | RAD_ITS ---
PROCEDURE: RAD/Ankle min 3 Views
== END | disposition home or self-care (01) ==
LOC: MTRAD 08:56
PROVIDERS: PCP Nurse Practitioner Family; Referring Provider Nurse Practitioner Family; Visit Provider Nurse Practitioner Family
DX: M25.572 Pain in left ankle and joints of left foot (principal)
CPT/HCPCS: 73610

== ENCOUNTER → 2025-09-25 | Outpatient (CLI) | payer OTHER, SELFPAY ==
--- NOTE | 2025-09-25 09:18 | RAD_ITS ---
PROCEDURE: FOOT MIN 3 VIEWS 09/25/2025 REASON FOR EXAM: FOOT PAIN/ FRACTURE TECHNIQUE: Procedure Code: RADFO Modality: DX Procedure: FOOT MIN 3 VIEWS Laterality: Left foot COMPARISON: None FINDINGS: Bones: I suspect an avulsion fracture along the dorsal aspect of the tarsal navicular bone. Joints: Normal alignment. Soft tissues: Dorsal soft tissue swelling. Other: RAD/Foot min 3 Views IMPRESSION: Avulsion fracture along the dorsal aspect of the tarsal navicular bone with ove rlying soft tissue swelling. Reading Location: [place] [id number]
== END | disposition home or self-care (01) ==
LOC: MTRAD 09:17
PROVIDERS: PCP Nurse Practitioner Family; Referring Provider Podiatrist Foot & Ankle Surgery; Visit Provider Podiatrist Foot & Ankle Surgery
DX: M79.672 Pain in left foot (principal); S92.252A Displaced fracture of navicular [scaphoid] of left foot, initial encounter for closed fracture
CPT/HCPCS: 73630

== ENCOUNTER → 2025-09-28 | Outpatient (CLI) | payer OTHER, SELFPAY ==
--- OUTSIDE RECORDS SUMMARY | 2025-09-28 07:05 | XMS RPT_ITS | CCD ---
Author Organization [facility] Care Team Providers Care Parimutuel Clerk Name Role Phone Jhon Lynette MAJANO Unavailable Unavailable Rasheed Spencer Unavailable Dr. Luis Manuel Madsen Primary Care Provider [phone] Dr. Luis Manuel Madsen Referring Provider Dr. Baldev Dey Attending Provider IVAN Spencer Attending Provider Dr. Analy Nielsen Attending Provider Dr. Luis Manuel Madsen Primary Care Provider [phone] Dr. Luis Manuel Madsen Referring Provider RADHA Metzger Attending Provider Luis Manuel Madsen DO Primary Care Provider [phone] PURNIMA KEYS Attending Unavailable LUIS MANUEL MADSEN Primary Care Unavailable Irais Anthony Attending Unavailable Irais Anthony Referring Unavailable Lauro VSC, Arpita Primary Care Unavailabl e Lauro VSC, Arpita Primary Care Unavailabl e Lauro VSC, Arpita Attending Unavailabl e Lauro VSC, Arpita Referring Unavailabl e Lauro VSC, Arpita Primary Care Unavailabl e Lauro VSC, Arpita Attending Unavailabl e Lauro VSC, Arpita Referring Unavailabl e Lauro VSC, Arpita Primary Care Unavailabl e Lauro VSC, Arpita Attending Unavailabl e Lauro VSC, Arpita Referring UnavailAugusto Cole Attending Unavailable Augusto Martin Referring Unavailable Lauro VSC, Arpita Primary Care Unavailabl e Lauro VSC, Arpita Primary Care Unavailabl e Lauro VSC, Arpita Attending Unavailabl e Lauro C, Arpita Primary Care Unavailabl e Lauro C, Arpita Attending Unavailabl e Lauro C, Arpita Referring Unavailabl e Sreekanth Sherman Attending Unavailable Sherman, Sreekanth Referring Unavailable Lauro C, Arpita Primary Care Unavailabl e Lauro VSC, Arpita Primary Care Unavailabl e Roof ROLL UP MACHINE OPERATOR, Dwaine Wadsworth Attending Unavailable Lauro C, Arpita Referring Unavailabl e Assessment, Health Risk Referring Unavaila ble Lauro [facility], Arpita Primary Care Unavailabl e Assessment, Health Risk Attending Unavaila ble Allergies Allergy Classification Reported Allergen(s) Allergy Type Date of Onset Reaction(s) Facility (2 sources) acetaminophen / oxyCODONE drug allergy increased heartrate [facility] Work Phone: (2 sources) escitalopram drug allergy 08-05-20 15 fatigue, dizziness [facility] Work Phone: (2 sources) penicillin drug allergy 04-20-20 11 SWELLING AND RASH [facility] Work Phone: (2 sources) zolpidem drug allergy chills, SOB [facility] Work Phone: (8 sources) diazePAM; Translations: [DIAZEPAM] Drug Allergy 04-07-20 Other: See Comments [facility] (7 sources) oxyCODONE; Translations: [oxycodone HCl] Drug Allergy 04-07-20 22 Other [facility] (9 sources) Penicillins; Translations: [PENICILLINS] Allergy to substance 04-15-20 06 Rash, Swelling [facility] (9 sources) zolpidem; Translations: [ZOLPIDEM TARTRATE] Drug Allergy 01-09-20 14 Intolerance [facility] (2 sources) Acetaminophen / oxyCODONE; Translations: [OXYCODONE-ACETAMIN OPHEN] Drug Allergy 02-14-20 24 Unknown [facility] (2 sources) Codeine; Translations: [CODEINE] Drug Allergy 04-15-20 06 GI Upset [facility] (2 sources) traMADol; Translations: [TRAMADOL] Drug Allergy 02-14-20 24 Other: See Comments [facility] (1 source) diazePAM Drug Allergy 11-04-20 [facility] (1 source) diphenhydrAMINE Drug Allergy 11-04-20 [facility] Medications Current Medications Medication Drug Class(es) Dates Sig (Normalized) Sig (Original) busPIRone hydrochloride 5 mg oral tablet (14 sources) Start: 07-01-2022 End: 11-16-2022 take 7.5 mg by mouth twice daily Buspirone Active 7.5 MG PO TWICE A DAY November 16, 2022 11:49am Start: 05-14-2021 End: 07-01-2022 take 5 mg by mouth twice daily Buspirone Discontinued 5 MG PO TWICE A DAY May 14, 2021 12:00am July 01, 2022 2:19pm cyclobenzaprine hydrochloride 10 mg oral tablet (9 sources) Muscle Relaxant Start: 04-08-2020 take 10 mg by mouth three times daily Cyclobenzaprine Active 10 MG PO THREE TIMES A DAY April 08, 2020 11:54am Start: 05-13-2015 End: 11-08-2018 take 10 mg by mouth three times daily Cyclobenzaprine Discontinued 10 MG PO THREE TIMES A DAY May 13, 2015 12:00am November 08, 2018 9:25am 1.14 ml dupilumab 175 mg/ml prefilled syringe (4 sources) Interleukin-4 Receptor alpha Antagonist Start: 03-26-2021 Dupilumab (Dupixent Syringe) 200 mg/1.14 mL syringe Active 200 MG SC EVERY MONTH March 25, 2021 11:00pm dupilumab (DUPIX ENT PEN) 300 mg/2 mL pen injection Inject subcutaneously every 2 weeks. 0 Active Comment on above: Inject subcutaneousl y every 2 weeks. ibuprofen 800 mg oral tablet (3 sources) Nonsteroidal Anti-inflammatory Drug Start: 3 take 800 mg by mouth four times daily Ibuprofen Active 800 MG PO 4 times daily November 16, 2022 1:00am LORazepam 0.5 mg oral tablet (13 sources) Benzodiazepine Start: 4 take 0.25 mg by mouth once daily as needed Lorazepam Active 0.25 MG PO DAILY NEEDED January 18, 2014 1:00am Start: 01-18-2014 take 0.5 mg by mouth once daily as needed Lorazepam Active 0.5 MG PO DAILY NEEDED January 18, 2014 12:00am Start: 10-23-2013 End: 10-31-2013 take 1 tablet by mouth every four to six hours as needed ATIVAN 0.5 MG TABS 1 tablet by mouth Q4-6H as needed LORAZEPAM [id number] Annie Redmond RN Start: 01-09-2013 take 1 tablet by abdulaziz th every eight hours as needed LORazepam (ATIVAN) 0.5 mg Tab Take 1 tablet by mouth three times daily as needed. 30 tablet 0 01/09/2013 Active Comment on above: Take 1 tablet by abdulaziz th three times daily as needed. metaxalone 800 mg oral tablet (3 sources) Start: 2020 take 1 tablet by mouth three times daily Metaxalone (Skelaxin) 800 mg tablet Active 800 MG PO THREE TIMES A DAY May 13, 2021 11:00pm methylPREDNISolone 4 mg oral tablet (2 sources) Corticosteroid Start: 2021 take 1 tablet by mouth once Methylprednisolone (Medrol (Raymundo)) 4 mg tablets,dose pack Active 0 PO per package directions June 30, 2022 11:00pm PO PER PKG DIR pantoprazole 40 mg delayed release oral tablet (3 sources) Proton Pump Inhibitor Start: 2022 take 40 mg by mouth once daily Pantoprazole Active 40 MG PO DAILY November 16, 2022 1:00am 0.5 ml ustekinumab 90 mg/ml injection (7 sources) Interleukin-12 Antagonist, Interleukin-23 Antagonist Start: 2019 Ustekinumab (Stelara) 45 mg/0.5 mL solution Active 45 MG SC .[id number] June 24, 2020 12:00am inject 45 mg by subc utaneous injection once ustekinumab (STELARA) 45 mg/0.5 mL sub-Q syringe Inject 45 mg subcutaneously one time only. 0 Active Comment on above: Inject 45 mg subcuta neously one time only. Completed/Discontinued Medications Medication Drug Class(es) Dates Sig (Normalized) Sig (Original) acetaminophen 325 mg / HYDROcodone bitartrate 5 mg oral tablet (20 sources) Opioid Agonist Start: 06-02-2021 End: 06-15-2021 take 1 tablet by mouth every six hours Hydrocodone-Acetami nophen Discontinued 1 TABLET PO EVERY 6 HOURS 08 18June 02, 2021 June 15, 2021 8:59am Start: 12-01-2018 End: 02-27-2019 Hydrocodone-Acetaminophen Di scontinued 1 - 2 EACH PO EVERY 4 HOURS NEEDED December 01, 2018 1:00am February 27, 2019 8:05am Start: 11-24-2018 End: 11-29-2018 take 1 tablet by mouth every four hours as needed Hydrocodone-Acetaminophen Discontinued 1 - 2 TABLET PO EVERY 4 HOURS NEEDED 12 04November 24, 2018 1:00am November 29, 2018 1:08am Start: 05-13-2015 End: 11-08-2018 take 1 tablet by mouth every four hours as needed Hydrocodone-Acetaminophen Discontinued 1 - 2 TABLET PO EVERY 4 HOURS NEEDED May 13, 2015 12:00am November 08, 2018 9:25am 24 hr buPROPion hydrochloride 300 mg extended release oral tablet (4 sources) Aminoketone Start: 04-20-2011 End: 12-11-2012 take 1 tablet by mouth once daily WELLBUTRIN XL 300 MG [id number] One tablet by mouth daily BUPROPION HCL [id number] Gricelda Gasca Start: 04-20-2011 End: 12-11-2012 take 1 tablet by mouth once daily WELLBUTRIN XL 300 MG [id number] One tablet by mouth daily BUPROPION HCL [id number] Nazia Uriostegui Start: 04-20-2011 take 1 tablet by abdulaziz th once daily WELLBUTRIN XL 300 MG [id number] One tablet by mouth daily BUPROPION HCL [id number] Gricelda Gasca calcium carbonate / vitamin D (4 sources) Start: 10-23-2013 End: 10-31-2013 take 1 tablet by mouth once daily CALCIUM 500 + D 500-125 MG-UNIT TABS One tablet by mouth daily CALCIUM CARBONATE-VITAMIN D [id number] Lamont Rubio MD Start: 10-23-2013 take 1 tablet by abdulaziz th once daily CALCIUM 500 + D 500-125 MG-UNIT TABS One tablet by mouth daily CALCIUM CARBONATE-VITAMIN D [id number] Annie Redmond, KHANH ciprofloxacin 500 mg oral tablet (6 sources) Quinolone Antimicrobial Start: 11-22-2014 End: 04-14-2015 take 1 tablet by mouth twice daily CIPROFLOXACIN HCL 500 MG TABS 1 po twice daily x 3 days CIPROFLOXACIN HCL [id number] Luis Manuel Madsen DO Start: 10-03-2014 End: 10-10-2014 take 1 tablet by mouth twice daily CIPRO 500 MG TABS 1 tablet by mouth twice daily CIPROFLOXACIN HCL [id number] Gregorio Ti Rajesh SEGOVIA ciprofloxacin 3 mg/ml / dexamethasone 1 mg/ml otic suspension (4 sources) Corticosteroid, Quinolone Antimicrobial Start: 10-03-2014 End: 10-10-2014 CIPRODEX 0.3-0.1 % SUSP 4 dr ops in affected ear twice per day for 7 days for otitis externa CIPROFLOXACIN-DEXAMETHASONE [id number] Gregorio Ti Rajesh SEGOVIA Start: 10-03-2014 End: 10-10-2014 CIPRODEX 0.3-0.1 % SUSP 4 dr ops in affected ear twice per day for 7 days for otitis externa CIPROFLOXACIN-DEXAMETHASONE [id number] Gregorio Ti Rajesh SEGOVIA ciprofloxacin 2 mg/ml / hydrocortisone 10 mg/ml otic suspension (8 sources) Corticosteroid, Quinolone Antimicrobial Start: 02-13-2017 End: 05-06-2017 CIPRO HC 0.2-1 % SUSP 3 drop s to affected ear CIPROFLOXACIN-HYDROCORTISONE [id number] Lynette Ferreira LPN Start: 02-13-2017 End: 05-06-2017 CIPRO HC 0.2-1 % SUSP 3 gtts to affected ear twice a day for 7 days CIPROFLOXACIN-HYDROCORTISONE [id number] Jazmin Cheng PA-C Start: 02-13-2017 CIPRO HC 0.2-1 % SUSP 3 drops to affected ear CIPROFLOXACIN-HYDROCORTISONE [id number] Jazmin Cheng PA-C Start: 02-13-2017 End: 05-06-2017 CIPRO HC 0.2-1 % SUSP 3 gtts to affected ear twice a day for 7 days CIPROFLOXACIN-HYDROCORTISONE [id number] Lynette Ferreira LPN Start: 02-13-2017 CIPRO HC 0.2-1 % SUSP 3 gtts to affected ear twice a day for 7 days CIPROFLOXACIN-HYDROCORTISONE [id number] Jazmin Cheng PA-C Start: 02-13-2017 End: 05-06-2017 CIPRO HC 0.2-1 % SUSP 3 drop s to affected ear CIPROFLOXACIN-HYDROCORTISONE [id number] Lynette Ferreira LPN clobetasol propionate 0.0005 mg/mg topical ointment (20 sources) Corticosteroid Start: 02-15-2024 clobetasol (TE MOVATE) 0.05 % ointment Indications: Lichen sclerosus et atrophicus Apply to affected area TWICE DAILY for 3 months, then wean to a maintenance of 1-2 times per week. 60 g 11 02/15/2024 Active Start: 02-15-2024 End: 02-15-2024 clobetasol (TEMOVATE) 0.05 % ointment Indications: Lichen sclerosus et atrophicus Apply to affected area nightly x 6-12 weeks, then use 1-2x weekly for maintenance 60 g 11 02/15/2024 02/15/2024 Discontinued Start: 11-16-2022 Clobetasol-Emo llient Active 1 APPLIC TOPICAL DIRECTED November 16, 2022 11:49am Apply as directed prn Start: 05-27-2022 End: 11-16-2022 Clobetasol-Emollient Discont inued 15 GM TOPICAL NEEDED 60 July 01, 2022 2:35pm November 16, 2022 11:49am Apply as directed prn Start: 11-21-2018 End: 05-27-2022 Clobetasol-Emollient Discont inued 15 GM TP NEEDED November 21, 2018 1:00am May 27, 2022 2:39pm Start: 08-27-2016 End: 02-15-2024 clobetasol (TEMOVATE) 0.05 % ointment Apply to affected area nightly x 6-12 weeks, then use 1-2x weekly for maintenance 30 g 6 08/27/2016 02/15/2024 Discontinued Start: 10-31-2013 End: 05-06-2017 CLOBETASOL PROPIONATE 0.05 % CREA Apply topically as directed CLOBETASOL PROPIONATE [id number] Lynette Ferreira LPN Comment on above: Apply to affected ar ea TWICE DAILY for 3 months, then wean to a maintenance of 1-2 times per week. Apply to affected ar ea nightly x 6-12 weeks, then use 1-2x weekly for maintenance desoximetasone 2.5 mg/ml topical cream (6 sources) Corticosteroid Start: 02-19-2018 End: 11-08-2018 Desoximetasone Discontinued 1 APPLIC TOPICAL TWICE A DAY 1 February 19, 2018 12:00am November 08, 2018 9:25am DULoxetine 20 mg delayed release oral capsule (4 sources) Serotonin and Norepinephrine Reuptake Inhibitor Start: 09-13-2014 End: 10-21-2014 CYMBALTA 20 MG CPEP 1 PO daily DULOXETINE HCL [id number] Luis Manuel Madsen DO Emollient Combination No.72 (6 sources) Start: 02-19-2018 End: 11-08-2018 Emollient Combination No.72 Discontinued 250 ML TP TWICE A DAY 1 February 19, 2018 12:14pm November 08, 2018 9:25am Start: 02-19-2018 End: 11-08-2018 Emollient Combination No.72 Discontinued 250 ML TP TWICE A DAY 1 February 18, 2018 11:00pm November 08, 2018 8:25am Start: 02-19-2018 End: 11-08-2018 Emollient Combination No.72 Discontinued 250 ML TP TWICE A DAY 1 February 19, 2018 12:00am November 08, 2018 9:25am escitalopram 5 mg oral tablet (8 sources) Serotonin Reuptake Inhibitor Start: 07-31-2015 End: 08-05-2015 take 1 tablet by mouth once daily ESCITALOPRAM OXALATE 5 MG TABS 1 po daily ESCITALOPRAM OXALATE [id number] Luis Manuel Madsen DO Start: 10-23-2013 End: 10-31-2013 take 1 tablet by mouth once daily LEXAPRO 10 MG TABS One tablet by mouth daily ESCITALOPRAM OXALATE [id number] Annie Redmond RN estradiol 0.1 mg/ml vaginal cream (16 sources) Estrogen Start: 02-15-2024 estradiol (EST RACE) 0.01 % (0.1 mg/gram) vaginal cream Indications: Vaginal atrophy Use fingertip amount nightly x 3 weeks 42.5 g 11 02/15/2024 Active Start: 07-01-2022 End: 11-16-2022 Estradiol (Estrace) 0.01 % ( 0.1 mg/gram) cream Active 0 VAGINAL .COMPLEX November 16, 2022 11:49am use fingertip amount or 1-2g every night vaginally x 2 weeks, then 1-3x weekly for maintenance Start: 03-26-2021 End: 05-14-2021 Estradiol (Estrace) 0.01 % ( 0.1 mg/gram) cream Discontinued 1 GM VAGINAL TWICE A WEEK March 26, 2021 12:00am May 14, 2021 7:30am Start: 08-27-2016 End: 02-15-2024 estradiol (ESTRACE) 0.01 % ( 0.1 mg/gram) vaginal cream Use fingertip amount nightly x 2 weeks, then every other night x 2 weeks, then 1-2x weekly for maintenance 1 Tube 3 08/27/2016 02/15/2024 Discontinued Comment on above: Use fingertip amount nightly x 3 weeks Use fingertip amount nightly x 2 weeks, then every other night x 2 weeks, then 1-2x weekly for maintenance FLUoxetine 20 mg oral capsule (6 sources) Serotonin Reuptake Inhibitor Start: 4 End: 8 take 20 mg by mouth once daily Fluoxetine Discontinued 20 MG PO DAILY January 18, 2014 1:00am November 08, 2018 9:25am gabapentin 300 mg oral capsule (8 sources) Anti-epileptic Agent Start: 4 End: 4 take 1 capsule by mouth once daily at bedtime GABAPENTIN 300 MG CAPS 1 PO daily at bedtime GABAPENTIN [id number] Luis Manuel Madsen DO Start: 07-29-2014 End: 09-11-2014 take 1 capsule by mouth once daily at bedtime, then take 2 capsules by mouth once daily at bedtime, then take 3 capsules by mouth once daily at bedtime GABAPENTIN 100 MG CAPS 1 PO daily at bedtime x 1 week then 2 PO daily at bedtime x 1 week then 3 PO daily at bedtime GABAPENTIN [id number] Luis Manuel Madsen DO L-METHYLFOLATE (2 sources) Start: 04-20-2011 End: 10-31-2013 take 1 tablet by mouth once daily DEPLIN 7.5 MG TABS One tablet by mouth daily L-METHYLFOLATE [id number] Lamont Rubio MD Start: 04-20-2011 take 1 tablet by abdulaziz th once daily DEPLIN 7.5 MG TABS One tablet by mouth daily L-METHYLFOLATE [id number] Gricelda Gasca L-METHYLFOLATE (2 sources) Start: 04-20-2011 End: 10-31-2013 take 1 tablet by mouth once daily DEPLIN 7.5 MG TABS One tablet by mouth daily L-METHYLFOLATE [id number] Lamont Rubio MD Start: 04-20-2011 take 1 tablet by abdulaziz th once daily DEPLIN 7.5 MG TABS One tablet by mouth daily L-METHYLFOLATE [id number] Gricelda Gasca meloxicam 7.5 mg oral tablet (2 sources) Nonsteroidal Anti-inflammatory Drug Start: 10-09-2012 End: 11-08-2012 MOBIC 7.5 MG TABS take one daily with food MELOXICAM [id number] Nazia Uriostegui 24 hr mesalamine 375 mg extended release oral capsule (6 sources) Aminosalicylate Start: 03-05-2019 End: 03-26-2021 take 1 capsule by mouth once daily in the morning Mesalamine (Apriso) 0.375 gram capsule,extended release 24hr Discontinued 1.5 GM PO EVERY MORNING March 05, 2019 12:00am March 26, 2021 2:18pm naproxen 250 mg oral tablet (6 sources) Nonsteroidal Anti-inflammatory Drug Start: 06-02-2021 End: 06-15-2021 take 250-500 mg by mouth every eight hours as needed Naproxen Discontinued 250 - 500 MG PO EVERY 8 HOURS NEEDED June 02, 2021 12:00am June 15, 2021 8:59am nitrofurantoin, macrocrystals 25 mg / nitrofurantoin, monohydrate 75 mg oral capsule (6 sources) Nitrofuran Antibacterial Start: 02-14-2019 End: 02-21-2019 take 1 capsule by mouth twice daily at mealtime Nitrofurantoin Monohyd/M-Cryst (Macrobid) 100 mg capsule Discontinued 100 MG PO TWICE A DAY 14 February 14, 2019 12:00am February 21, 2019 12:08am must administer with a meal/food 24 hr nitroglycerin 0.2 mg/hr transdermal system (2 sources) Nitrate Vasodilator Start: 12-11-2012 End: 01-10-2013 NITROGLYCERIN 0.2 MG/HR PT24 apply one daily to affected area NITROGLYCERIN [id number] Nazia Uriostegui ofloxacin 3 mg/ml otic solution (6 sources) Quinolone Antimicrobial Start: 12-25-2018 End: 01-01-2019 Ofloxacin Discontinued 10 DRP OTIC TWICE A DAY 10 December 25, 2018 1:00am January 01, 2019 1:09am omeprazole 40 mg delayed release oral capsule (4 sources) Proton Pump Inhibitor Start: 04-14-2015 End: 05-06-2017 OMEPRAZOLE 40 MG CPDR 1 po daily OMEPRAZOLE [id number] Lynette Ferreira HOT CELL TECHNICIAN oseltamivir 75 mg oral capsule (6 sources) Neuraminidase Inhibitor Start: 11-04-2017 End: 11-09-2017 take 1 capsule by mouth every twelve hours Oseltamivir (Tamiflu) 75 mg capsule Discontinued 75 MG PO Q12H 10 November 04, 2017 1:00am November 09, 2017 1:03am predniSONE 10 mg oral tablet (6 sources) Start: 02-27-2019 End: 03-26-2021 Prednisone Discontinued 10 MG PO DIRECTED February 27, 2019 12:00am March 26, 2021 2:19pm ramelteon 8 mg oral tablet (4 sources) Melatonin Receptor Agonist Start: 09-13-2014 End: 10-21-2014 take 1 tablet by mouth once daily at bedtime ROZEREM 8 MG TABS 1 PO QHS OSIEL [id number] Luis Manuel Madsen DO triamcinolone acetonide 40 mg/ml injectable suspension (7 sources) Corticosteroid Start: 05-14-2021 End: 05-14-2021 Kenalog (triamcinolone acetonide) 40 mg/mL suspension for injection Discontinued 40 MG INTRAARTIC ONCE 1 May 14, 2021 7:12am May 14, 2021 7:53am Start: 03-26-2021 End: 05-14-2021 inject 30 mg by intramuscular injection once daily Triamcinolone Acetonide (Kenalog) 40 mg/mL suspension Discontinued 30 MG IM DAILY March 26, 2021 12:00am May 14, 2021 7:31am vilazodone hydrochloride 20 mg oral tablet (4 sources) Start: 08-05-2015 End: 05-06-2017 take 1 tablet by mouth once daily VIIBRYD 20 MG TABS 1 po daily as directed VILAZODONE HCL [id number] Luis Manuel Madsen DO VTAMA 1 % cream (1 source) Start: 02-06-2024 VTAMA 1 % crea m zinc gluconate 50 mg oral tablet (4 sources) Start: 10-23-2013 End: 10-31-2013 take 1 tablet by mouth once daily ZINC GLUCONATE 50 MG TABS One tablet by mouth daily ZINC GLUCONATE [id number] Lamont Rubio MD Problems Active Problems Problem Classification Problem Date Documented Da te Episodic/Chronic Abdominal pain (14 sources) Generalized abdominal pain; Translations: [Right upper quadrant pain] Onset: 04-24-2015 05-11-2015 Episodic Anxiety disorders (1 source) Generalized anxiety disorder; Translations: [Generalized anxiety disorder] Onset: 07-31-2025 Chronic Biliary tract disease (6 sources) Polyp of gallbladder; Translations: [Cholesterolosis of gallbladder] 11-24-2018 Episodic Disorders of lipid metabolism (2 sources) Hyperlipidemia; Translations: [Hyperlipidemia, unspecified] Onset: 10-31-2013 10-31-2013 Chronic Endometriosis (6 sources) Endometriosis (clinical); Translations: [Endometriosis, unspecified] 06-02-2021 Chronic Fracture of lower limb (6 sources) Fracture of great toe ; Translations: [Displaced fracture of distal phalanx of right great toe, initial encounter for closed fracture] 06-24-2021 Episodic Fracture of lower limb (1 source) Displaced fracture of navicular [scaphoid] of left foot, initial encounter for closed fracture; Translations: [Displaced fracture of navicular [scaphoid] of left foot, initial encounter for closed fracture] Onset: 09-25-2025 Episodic Heart valve disorders (2 sources) Mitral valve prolapse; Translations: [Nonrheumatic mitral (valve) prolapse] Onset: 10-31-2013 10-31-2013 Chronic Influenza (6 sources) Influenza due to Influenza A virus; Translations: [Influenza due to other identified influenza virus with other respiratory manifestations] 11-24-2018 Episodic Menopausal disorders (8 sources) Atrophic vaginitis; Translations: [Postmenopausal atrophic vaginitis] Onset: 02-15-2024 02-13-2019 Chronic Mood disorders (2 sources) Mixed anxiety and depressive disorder; Translations: [Other specified anxiety disorders] Onset: 07-29-2014 07-29-2014 Chronic Nausea and vomiting (6 sources) Nausea; Translations: [Nausea] 11-24-2018 Episodic Nonspecific chest pain (5 sources) Chest pain; Translations: [Chest pain, unspecified] Onset: 10-31-2013 11-01-2013 Episodic Nutritional deficiencies (1 source) Vitamin D deficiency, unspecified; Translations: [Vitamin D deficiency, unspecified] Onset: 07-31-2025 Chronic Other and unspecified benign neoplasm (2 sources) Benign neoplasm of meninges; Translations: [Benign neoplasm of meninges, unspecified] Onset: 04-20-2011 04-20-2011 Chronic Other connective tissue disease (6 sources) Muscle spasm of cervical muscle of neck; Translations: [Other muscle spasm] 05-14-2021 Episodic Other connective tissue disease (6 sources) Spasm of cervical paraspinous muscle; Translations: [Other muscle spasm] 05-14-2021 Episodic Other connective tissue disease (1 source) Pain in left foot; Translations: [Pain in left foot] Onset: 09-25-2025 Episodic Other ear and sense organ disorders (6 sources) Otitis externa; Translations: [Unspecified otitis externa, left ear] 12-25-2018 Chronic Other gastrointestinal disorders (6 sources) Diarrhea; Translations: [Diarrhea, unspecified] 11-24-2018 Episodic Other non-traumatic joint disorders (1 source) Pain in left ankle and joints of left foot; Translations: [Pain in left ankle and joints of left foot] Onset: 09-21-2025 Episodic Other screening for suspected conditions (not mental disorders or infectious disease) (1 source) Encounter for screening for osteoporosis; Translations: [Encounter for screening for osteoporosis] Onset: 09-05-2025 Episodic Other skin disorders (2 sources) Lichen sclerosus et atrophicus; Translations: [Lichen sclerosus et atrophicus] Onset: 07-29-2014 07-29-2014 Chronic Other skin disorders (9 sources) Lichen sclerosus et atrophicus; Translations: [Lichen sclerosus et atrophicus] Onset: 02-15-2024 Chronic Other upper respiratory infections (4 sources) Upper respiratory infection; Translations: [Acute upper respiratory infection, unspecified] Onset: 05-06-2017 05-06-2017 Episodic Regional enteritis and ulcerative colitis (6 sources) Ulcerative colitis; Translations: [Ulcerative colitis, unspecified, without complications] 11-27-2021 Chronic Spondylosis; intervertebral disc disorders; other back problems (8 sources) Degeneration of cervical intervertebral disc; Translations: [Other cervical disc degeneration, unspecified cervical region] Chronic Spondylosis; intervertebral disc disorders; other back problems (10 sources) Pain in the coccyx; Translations: [Neck pain] Onset: 09-13-2014 09-13-2014 Episodic Sprains and strains (8 sources) Sprain of hip; Translations: [Strain of neck muscle] 02-18-2014 Episodic Unclassified (1 source) Adult health examination ; Translations: [Encounter for general adult medical examination without abnormal findings] Onset: 06-26-2015 06-26-2015 Unclassified (1 source) Well woman health examination ; Translations: [Encounter for gynecological examination (general) (routine) without abnormal findings] Onset: 12-26-2014 12-26-2014 Viral infection (6 sources) Disease caused by 2019-nCoV; Translations: [COVID-19] 11-27-2021 Episodic Past or Other Problems Problem Classification Problem Date Documented Da te Episodic/Chronic Allergic reactions (7 sources) Irritant contact dermatitis due to plant; Translations: [Irritant contact dermatitis due to plants, except food] Onset: 11-04-2024 Episodic Cardiac dysrhythmias (2 sources) Palpitations; Translations: [Palpitations] Onset: 05-05-2016 05-06-2016 Episodic Conditions associated with dizziness or vertigo (2 sources) Dizziness; Translations: [Dizziness and giddiness] Onset: 09-09-2015 10-12-2015 Episodic Genitourinary symptoms and ill-defined conditions (2 sources) Dysuria; Translations: [Dysuria] Onset: 11-22-2014 11-22-2014 Episodic Malaise and fatigue (3 sources) Fatigue; Translations: [Other fatigue] Onset: 09-13-2014 09-13-2014 Episodic Nonmalignant breast conditions (2 sources) Breast lump; Translations: [Unspecified lump in breast] Onset: 04-24-2015 05-11-2015 Episodic Other bone disease and musculoskeletal deformities [...] body region] Onset: 10-23-2014 10-23-2014 Episodic Other lower respiratory disease (1 source) Pleurodynia; Translations: [Pleurodynia] Onset: 01-10-2025 Episodic Other non-traumatic joint disorders (6 sources) [...] [Pain in unspecified hip] 01-08-2014 Episodic Other skin disorders (1 source) Other seborrheic keratosis; Translations: [Other seborrheic keratosis] Onset: 11-20-2024 Episodic Superficial injury; contusion (5 sources) Bruise of head; Translations: [Abrasion] Onset: 04-20-2011 04-20-2011 Episodic Unclassified (2 sources) Insomnia; Translations: [Psychophysiologic insomnia] Onset: 07-29-2014 07-29-2014 Episodic Results Test Name Value Interpretation Reference Range Facility Foot min 3 Viewson 5 Foot min 3 Views [facility] Imaging Services [address] [place] [address] [id number] Foot min 3 Views MR#: [id number] Acct: [id number] Name: REGINATAMICA JORDON Rep #: [id number] : 1965 F 59 From: Dain hu MD PCP: MARICARMEN Saunders, ROLL UP MACHINE OPERATOR-C Status: REG CLI Study: Foot min 3 Views Date of Exam: 09/25/25 Exam# [id number] Ordering Dr: Sreekanth Sherman DPM PROCEDURE: FOOT MIN 3 VIEWS 09/25/2025 REASON FOR EXAM: FOOT PAIN/ FRACTURE TECHNIQUE: Procedure Code: RADFO Modality: DX Procedure: FOOT MIN 3 VIEWS Laterality: Left foot COMPARISON: None FINDINGS: Bones: I suspect an avulsion fracture along the dorsal aspect of the tarsal navicular bone. Joints: Normal alignment. Soft tissues: Dorsal soft tissue swelling. Other: RAD/Foot min 3 Views IMPRESSION: Avulsion fracture along the dorsal aspect of the tarsal navicular bone with overlying soft tissue swelling. Reading Location: [facility] CC: ZAKIA Sherman; [facility] ROLL UP MACHINE OPERATOR-C Arpita Restrepo Soap Grinder: Signed Normal [facility] Ankle min 3 Viewson 09-10-20 Ankle min 3 Views [facility] Imaging Services [address] [place] [address] Ankle min 3 Views MR#: [id number] Acct: [id number] Name: REGINATAMICA JORDON Rep #: [id number] : 1965 F 59 From: Joseph Puente PCP: MARICARMEN Saunders, ROLL UP MACHINE OPERATOR-C Status: REG CLI Study: Ankle min 3 Views Date of Exam: 09/10/25 Exam# [id number] Ordering Dr: Arpita Restrepo ROLL UP MACHINE OPERATOR-C PROCEDURE: ANKLE MIN 3 VIEWS 09/10/2025 REASON FOR EXAM: PAIN, FALL TECHNIQUE: Procedure Code: RADANK Modality: DX Procedure: ANKLE MIN 3 VIEWS Laterality: Left COMPARISON: None. RAD/Ankle min 3 Views IMPRESSION: A FRACTURE at the dorsal left navicular bone is seen, extending to the talonavicular articulation, with the fracture fragment angulated and displaced. The ankle mortise is intact. On lateral imaging, no ankle joint effusion is seen. Normal contour of the Achilles tendon is noted. Reading Location: [facility] CC: [facility] ROLL UP MACHINE OPERATOR-C Arpita Restreop Soap Grinder: Signed Normal [facility] Dexa Bone Density Studyon Dexa Bone Density Study [facility] Imaging Services [address] [place], [place] [id number] Dexa Bone Density Study MR#: [id number] Acct: [id number] Name: TAMICA BELLAMY Rep #: [id number] : 1965 F 59 From: Nona Mary PCP: MARICARMEN Saunders, ROLL UP MACHINE OPERATOR-C Status: REG CLI Study: Dexa Bone Density Study Date of Exam: 08/22/25 Exam# [id number] Ordering Dr: Arpita Restrepo ROLL UP MACHINE OPERATOR-C PROCEDURE: DEXA BONE DENSITY STUDY 08/22/2025 REASON FOR EXAM: F, age 59 y/o . Postmenopausal. TECHNIQUE: Procedure Code: BDDBD Modality: DX Procedure: DEXA BONE DENSITY STUDY COMPARISON: None FINDINGS: BMD and T-SCORES Lumbar spine: 0.829 g/cm2, T-score -2.0 Levels: L1 through L4 Left femoral neck: 0.618 g/cm2, T-score -2.1 Left total hip: 0.695 g/cm2, T-score -2.0 Right femoral neck: 0.629 g/cm2, T-score -2.0 Right total hip: 0.672 g/cm2, T-score -2.2 The World Health Organization has defined the following categories based on bone density: Normal bone density: T-score equal to or greater than -1.0 Osteopenia: T-score between -1.0 and -2.5 Osteoporosis: T-score equal to or less than -2.5 FRAX (or Comparable) Fracture Risk Assessment: 10 Year Probability of Fracture: Major Osteoporotic Fracture: 12% Hip Fracture: 1.9% (Note: FRAX is not to be reported in setting of normal range bone density, osteoporosis on DEXA, known history of osteoporosis, prior osteoporotic hip or vertebral fracture, or for any patient undergoing pharmacological treatment for bone loss.) The National Osteoporosis Foundation (NOF) recommends pharmacological treatment for patients with a FRAX 10-year risk of 3% or higher for a hip fracture, or 20% or higher for a major osteoporotic fracture, to prevent osteoporosis and reduce fracture risk. The patient does meet the pharmacological treatment recommendations for prevention of osteoporosis. BD/Dexa Bone Density Study IMPRESSION: OSTEOPENIA. Recommend follow-up as clinically warranted. Reading Location: [facility] CC: [facility] ROLL UP MACHINE OPERATORYari Restrepo Soap Grinder: Signed Normal [facility] CBC, Employeeon 05-30-2025 Absolute Lymph 1.97 X10 3/uL Normal 0.83-4.51 [facility] Comment on above: Performed By: #### L 500.2900, L100.0200, L400.0100 #### [facility] Laboratory [address] [place], [address] Absolute Neut 3.9 X10 3/uL Normal 2.0-7.7 [facility] Comment on above: Performed By: #### L 500.2900, L100.0200, L400.0100 #### [facility] [address] [place], [address] Basophils/100 WBC (Bld) 0.6 % Normal 0-1 [facility] Comment on above: Performed By: #### L 500.2900, L100.0200, L400.0100 #### [facility] [address] [place], [address] Eosinophils/100 WBC (Bld) 3.6 % Normal 0-5 [facility] Comment on above: Performed By: #### L 500.2900, L100.0200, L400.0100 #### [facility] [address] [place], [address] Erythrocyte distribution width (RBC) [Ratio] 13.6 % Normal 11.6-14.6 [facility] Comment on above: Performed By: #### L 500.2900, L100.0200, L400.0100 #### [facility] [address] [place], [address] Hematocrit (Bld) [Volume fraction] 41.1 % Normal 37-47 [facility] Comment on above: Performed By: #### L 500.2900, L100.0200, L400.0100 #### [facility] [address] [place], [address] Hemoglobin (Bld) [Mass/Vol] 13.6 g/dL Normal 12.0-15.0 [facility] Comment on above: Performed By: #### L 500.2900, L100.0200, L400.0100 #### [facility] [address] [place], [address] Lymphocytes/100 WBC (Bld) 29.5 % Normal 19-41 [facility] Comment on above: Performed By: #### L 500.2900, L100.0200, L400.0100 #### [facility] [address] [place], [address] MCH (RBC) [Entitic mass] 29.9 pg Normal 27.0-32.0 [facility] Comment on above: Performed By: #### L 500.2900, L100.0200, L400.0100 #### [facility] [address] [place], [address] MCHC (RBC) [Mass/Vol] 33.1 g/dL Normal 32-36 [facility] Comment on above: Performed By: #### L 500.2900, L100.0200, L400.0100 #### [facility] [address] [place], [address] MCV (RBC) [Entitic vol] 90.3 fL Normal 81-99 [facility] Comment on above: Performed By: #### L 500.2900, L100.0200, L400.0100 #### [facility] [address] [place], [address] Monocytes/100 WBC (Bld) 8.2 % Normal 0-10 [facility] Comment on above: Performed By: #### L 500.2900, L100.0200, L400.0100 #### [facility] [address] [place], [address] Neutrophils/100 WBC (Bld) 57.8 % Normal 47-70 [facility] Comment on above: Performed By: #### L 500.2900, L100.0200, L400.0100 #### [facility] [address] [place], [address] NRBC # 0.00 10 3/uL Normal 0-5 [facility] Comment on above: Performed By: #### L 500.2900, L100.0200, L400.0100 #### [facility] [address] [place], [address] Nucleated RBC (Bld) [#/Vol] 0 10*3/uL Normal 0-5 [facility] Comment on above: Performed By: #### L 500.2900, L100.0200, L400.0100 #### [facility] [address] [place], [address] Platelet mean volume (Bld) [Entitic vol] 11.1 fL Normal 6.2-12.0 [facility] Comment on above: Performed By: #### L 500.2900, L100.0200, L400.0100 #### [facility] [address] [place], [address] Platelets (Bld) [#/Vol] 235 10*3/uL Normal 150-450 [facility] Comment on above: Performed By: #### L 500.2900, L100.0200, L400.0100 #### [facility] [address] [place], [address] RBC (Bld) [#/Vol] 4.55 10*6/uL Normal 4.2-5.4 [facility] Comment on above: Performed By: #### L 500.2900, L100.0200, L400.0100 #### [facility] [address] [place], [address] RDW SD 45.1 fl High 35.1-43.9 [facility] Comment on above: Performed By: #### L 500.2900, L100.0200, L400.0100 #### [facility] [address] [place], [address] WBC (Bld) [#/Vol] 6.7 10*3/uL Normal 4.4-11.0 [facility] Comment on above: Performed By: #### L 500.2900, L100.0200, L400.0100 #### [facility] [address] [place], [address] Employee Profileon Cholesterol in LDL [Mass/Vol] 146 mg/dL High 0-130 [facility] Comment on above: Performed By: #### L 500.2900, L100.0200, L400.0100 #### [facility] [address] [place], [address] Urinalysis, Employeeon 05-30 BILIRUBIN URINE Normal Negative [facility] Comment on above: Order Comment: Urine , Random Result Comment: NOT WANTED Performed By: #### L 500.2900, L100.0200, L400.0100 #### [facility] [address] [place], [address] Clarity (U) Normal Clear [facility] Comment on above: Order Comment: Urine , Random Result Comment: NOT WANTED Performed By: #### L 500.2900, L100.0200, L400.0100 #### [facility] [address] [place], [address] Color (U) Normal Yellow [facility] Comment on above: Order Comment: Urine , Random Result Comment: NOT WANTED Performed By: #### L 500.2900, L100.0200, L400.0100 #### [facility] [address] [place], [address] GLUCOSE, UR Normal Normal [facility] Comment on above: Order Comment: Urine , Random Result Comment: NOT WANTED Performed By: #### L 500.2900, L100.0200, L400.0100 #### [facility] [address] [place], [address] KETONE UR Normal Negative [facility] Comment on above: Order Comment: Urine , Random Result Comment: NOT WANTED Performed By: #### L 500.2900, L100.0200, L400.0100 #### [facility] [address] [place], [address] LEUK ESTERASE Normal Negative [facility] Comment on above: Order Comment: Urine , Random Result Comment: NOT WANTED Performed By: #### L 500.2900, L100.0200, L400.0100 #### [facility] [address] [place], [address] Nitrite Ql (U) Normal Negative [facility] Comment on above: Order Comment: Urine , Random Result Comment: NOT WANTED Performed By: #### L 500.2900, L100.0200, L400.0100 #### [facility] [address] [place], [address] OCCULT BLOOD-UR Normal Negative [facility] Comment on above: Order Comment: Urine , Random Result Comment: NOT WANTED Performed By: #### L 500.2900, L100.0200, L400.0100 #### [facility] [address] [place], [address] pH UR Normal 5.0 - 8.0 [facility] Comment on above: Order Comment: Urine , Random Result Comment: NOT WANTED Performed By: #### L 500.2900, L100.0200, L400.0100 #### [facility] [address] [place], [address] PROT DIPSTX Normal Negative [facility] Comment on above: Order Comment: Urine , Random Result Comment: NOT WANTED Performed By: #### L 500.2900, L100.0200, L400.0100 #### [facility] [address] [place], [address] SP.GR. DIPSTX Normal 1.002-1.03 0 [facility] Comment on above: Order Comment: Urine , Random Result Comment: NOT WANTED Performed By: #### L 500.2900, L100.0200, L400.0100 #### [facility] [address] [place], [address] UR Preservative Normal [facility] Comment on above: Order Comment: Urine , Random Result Comment: NOT WANTED Performed By: #### L 500.2900, L100.0200, L400.0100 #### [facility] [address] [place], [address] UROBILI Normal Normal [facility] Comment on above: Order Comment: Urine , Random Result Comment: NOT WANTED Performed By: #### L 500.2900, L100.0200, L400.0100 #### [facility] [address] [place], [address] Ribs Uni Min 3V w/PA Cheston 12-29-2024 Ribs Uni Min 3V w/PA Chest [facility] Imaging Services [address] [place] [address] Ribs Uni Min 3V w/PA Chest MR#: [id number] Acct: [id number] Name: TAMICA BELLAMY JORDON Rep #: [id number] : 1965 F 59 From: Nubia Garcia nd, MD PCP: MARICARMEN Saunders, ROLL UP MACHINE OPERATOR-C Status: REG CLI Study: Ribs Uni Min 3V w/PA Chest Date of Exam: 12/29 Exam# [id number] Ordering Dr: Arpita Restrepo [facility] ROLL UP MACHINE OPERATOR-C PROCEDURE: RIBS UNI MIN 3V W/PA CHEST REASON FOR EXAM: 59-year-old female, fall, anterior left rib pain. TECHNIQUE: Frontal and bilateral oblique views of the left ribs and frontal chest. COMPARISON: Chest radiographs 11/16/2022. FINDINGS: No displaced rib fractures are identified. No suspicious lytic or blastic rib lesions. Thoracolumbar spondylosis. The heart is normal in size. No focal consolidation, pleural effusion or pneumothorax. Stable thoracic calcifications. RAD/Ribs Uni Min 3V w/PA Chest IMPRESSION: NO EVIDENCE OF ACUTE RIB FRACTURE OR PNEUMOTHORAX. Reading Location: [id number] CC: [facility] ROLL UP MACHINE OPERATOR-C Arpita Restrepo Soap Grinder: Signed Normal [facility] Testosterone, Total / Freeon 11-27-2024 TESTOSTER,FREE 0.39 ng/dL Normal 0.10-0.85 [facility] Comment on above: Order Comment: N Performed By: #### L 500.2900, L100.0200, L400.0100 #### [facility] [address] [place], [address] TESTOSTER,TOTAL 15 ng/dL Normal 3-67 [facility] Comment on above: Order Comment: N Performed By: #### L 500.2900, L100.0200, L400.0100 #### [facility] [address] [place], [address] TESTOSTERONE,%F 2.63 Normal 0.50-2.80 [facility] Comment on above: Order Comment: N Performed By: #### L 500.2900, L100.0200, L400.0100 #### [facility] [address] [place], [address] Thyroid Antibodieson 025 TG AB < 1.0 Normal 0.0-0.9 [facility] Comment on above: Order Comment: N Result Comment: Thyr oglobulin Antibody measured by [employer] It should be noted that the presence of thyroglobulin antibodies may not be pathogenic nor diagnostic, especially at very low levels. The assay plastering contractor has found that four percent of individuals without evidence of thyroid disease or autoimmunity will have positive TgAb levels up to 4 IU/mL. Performed at: [address] [id number] Track Repairer Helper: Deo Loera PhD, Phone: [phone] Performed at: [address] [id number] Track Repairer Helper: Micki More MD, Phone: [phone] Performed By: #### L 500.2900, L100.0200, L400.0100 #### [facility] [address] [facility] [place], [place], [id number] THYR PEROX AB 15 IU/mL Normal 0-34 [facility] Comment on above: Order Comment: N Performed By: #### L 500.2900, L100.0200, L400.0100 #### [facility] [address] [facility] [place], [place], [address] MARIA LUISA Comprehensive Panelon MARIA LUISA TABLE Comment Normal . [facility] Comment on above: Order Comment: N Result Comment: Auto antibody Disease Association Condition Frequency --------- Antinuclear Antibody, SLE, mixed connective Direct (MARIA LUISA-D) tissue diseases --------- dsDNA SLE 40 - 60% --------- Chromatin Drug induced SLE 90% SLE 48 - 97% --------- SSA (Ro) SLE 25 - 35% Sjogren's Syndrome 40 - 70% Lupus 100% --------- SSB (La) SLE 10% Sjogren's Syndrome 30% --------- Sm (anti-Castelan) SLE 15 - 30% --------- TANK TRUCK MECHANIC Mixed Connective Tissue Disease 95% (U1 nRNP, SLE 30 - 50% anti-ribonucleoprotein) Polymyositis and/or Dermatomyositis 20% --------- Scl-70 (antiDNA Scleroderma (diffuse) 20 - 35% topoisomerase) Crest 13% --------- Bina-1 Polymyositis and/or Dermatomyositis 20 - 40% --------- Centromere B Scleroderma - Crest variant 80% Performed By: #### L 3100.5440, L506.1000, L501.9520, L506.0400, L500.4050, L3300.1750, L503.0105, L3100.5310, L100.0100, L801.2600, L3300.6750 #### [facility] [address] [place], [address] PROGESTERONE 4317on 11-26-19 25 PROGESTERONE <0.1 Normal . [facility] Comment on above: Order Comment: N Result Comment: Foll icular phase 0.1 - 0.9 Luteal phase 1.8 - 23.9 Ovulation phase 0.1 - 12.0 First trimester 11.0 - 44.3 Second trimester 25.4 - 83.3 Third trimester 58.7 - 214.0 Postmenopausal 0.0 - 0.1 Performed at: [address] [id number] Track Repairer Helper: Deo Loera PhD, Phone: [phone] Performed By: #### L 500.2900, L100.0200, L400.0100 #### [facility] [address] [place], [address] CBC W/Diff, Automatedon Absolute Lymph 2.15 X10 3/uL Normal 0.83-4.51 [facility] Comment on above: Performed By: #### L 500.2900, L100.0200, L400.0100 #### [facility] [address] [place], [place], [address] Absolute Neut 4.0 X10 3/uL Normal 2.0-7.7 [facility] Comment on above: Performed By: #### L 500.2900, L100.0200, L400.0100 #### [facility] [address] [place], [address] Basophils/100 WBC (Bld) 0.6 % Normal 0-1 [facility] Comment on above: Performed By: #### L 500.2900, L100.0200, L400.0100 #### [facility] [address] [place], [address] Eosinophils/100 WBC (Bld) 2.6 % Normal 0-5 [facility] Comment on above: Performed By: #### L 500.2900, L100.0200, L400.0100 #### [facility] [address] [place], [address] Erythrocyte distribution width (RBC) [Ratio] 13.1 % Normal 11.6-14.6 [facility] Comment on above: Performed By: #### L 500.2900, L100.0200, L400.0100 #### [facility] [address] [place], [address] Hematocrit (Bld) [Volume fraction] 40.2 % Normal 37-47 [facility] Comment on above: Performed By: #### L 500.2900, L100.0200, L400.0100 #### [facility] [address] [place], [address] Hemoglobin (Bld) [Mass/Vol] 13.2 g/dL Normal 12.0-15.0 [facility] Comment on above: Performed By: #### L 500.2900, L100.0200, L400.0100 #### [facility] [address] [place], [address] IG% 0.300 Normal 0.0-0.9 [facility] Comment on above: Result Comment: IG% - Immature Granulocytes (promyelocytes, myelocytes and metamyelocytes) > 1% indicates that a LEFT SHIFT is Present. Performed By: #### L 500.2900, L100.0200, L400.0100 #### [facility] [address] [place], [address] Lymphocytes/100 WBC (Bld) 31.4 % Normal 19-41 [facility] Comment on above: Performed By: #### L 500.2900, L100.0200, L400.0100 #### [facility] [address] [place], [address] MCH (RBC) [Entitic mass] 29.7 pg Normal 27.0-32.0 [facility] Comment on above: Performed By: #### L 500.2900, L100.0200, L400.0100 #### [facility] [address] [place], [address] MCHC (RBC) [Mass/Vol] 32.8 g/dL Normal 32-36 [facility] Comment on above: Performed By: #### L 500.2900, L100.0200, L400.0100 #### [facility] [address] [place], [address] MCV (RBC) [Entitic vol] 90.5 fL Normal 81-99 [facility] Comment on above: Performed By: #### L 500.2900, L100.0200, L400.0100 #### [facility] [address] [place], [address] Monocytes/100 WBC (Bld) 6.7 % Normal 0-10 [facility] Comment on above: Performed By: #### L 500.2900, L100.0200, L400.0100 #### [facility] [address] [place], [address] Neutrophils/100 WBC (Bld) 58.4 % Normal 47-70 [facility] Comment on above: Performed By: #### L 500.2900, L100.0200, L400.0100 #### [facility] [address] [place], [address] Nucleated RBC (Bld) [#/Vol] 0 10*3/uL Normal 0-5 [facility] Comment on above: Performed By: #### L 500.2900, L100.0200, L400.0100 #### [facility] [address] [place], [address] Platelet mean volume (Bld) [Entitic vol] 10.6 fL Normal 6.2-12.0 [facility] Comment on above: Performed By: #### L 500.2900, L100.0200, L400.0100 #### [facility] [facility] [address] [place], [address] Platelets (Bld) [#/Vol] 254 10*3/uL Normal 150-450 [facility] Comment on above: Performed By: #### L 500.2900, L100.0200, L400.0100 #### [facility] [address] [place], [address] RBC (Bld) [#/Vol] 4.44 10*6/uL Normal 4.2-5.4 [facility] Comment on above: Performed By: #### L 500.2900, L100.0200, L400.0100 #### [facility] [address] [place], [address] RDW SD 43.5 fl Normal 35.1-43.9 [facility] Comment on above: Performed By: #### L 500.2900, L100.0200, L400.0100 #### [facility] [address] [place], [address] WBC (Bld) [#/Vol] 6.8 10*3/uL Normal 4.4-11.0 [facility] Comment on above: Performed By: #### L 500.2900, L100.0200, L400.0100 #### [facility] [address] [place], [address] Comprehensive Metabolic Prof ilon 11-22-2024 Albumin [Mass/Vol] 3.7 g/dL Normal 3.2-5.0 [facility] Comment on above: Order Comment: N Performed By: #### L 500.2900, L100.0200, L400.0100 #### [facility] [address] [place], [address] Albumin/Globulin [Mass ratio] 1.1 {ratio} Normal 0.9-2.4 [facility] Comment on above: Order Comment: N Performed By: #### L 500.2900, L100.0200, L400.0100 #### [facility] [address] [place], [address] ALK P 91 U/L Normal 45-117 [facility] Comment on above: Order Comment: N Performed By: #### L 500.2900, L100.0200, L400.0100 #### [facility] [address] [place], [address] ALT [Catalytic activity/Vol] 24 U/L Normal 13-56 [facility] Comment on above: Order Comment: N Performed By: #### L 500.2900, L100.0200, L400.0100 #### [facility] [address] [place], [address] AST [Catalytic activity/Vol] 22 U/L Normal 15-37 [facility] Comment on above: Order Comment: N Performed By: #### L 500.2900, L100.0200, L400.0100 #### [facility] [address] [place], [address] Bilirubin [Mass/Vol] 1.20 mg/dL High 0.20-1.00 [facility] Comment on above: Order Comment: N Result Comment: For patients on eltrombopag therapy, use of Dimension [place] TBIL is not recommended. Performed By: #### L 500.2900, L100.0200, L400.0100 #### [facility] [address] [place], [address] BUN/CRE 23.3 RATIO High 10-20 [facility] Comment on above: Order Comment: N Performed By: #### L 500.2900, L100.0200, L400.0100 #### [facility] [address] [place], [address] CA,Total 9.1 mg/dL Normal 8.5-10.1 [facility] Comment on above: Order Comment: N Performed By: #### L 500.2900, L100.0200, L400.0100 #### [facility] [address] [place], [address] Chloride [Moles/Vol] 103 mmol/L Normal 98-107 [facility] Comment on above: Order Comment: N Performed By: #### L 500.2900, L100.0200, L400.0100 #### [facility] [address] [place], [address] CO2 [Moles/Vol] 26.0 mmol/L Normal 21.0-32.0 [facility] Comment on above: Order Comment: N Performed By: #### L 500.2900, L100.0200, L400.0100 #### [facility] [address] [place], [address] Creatinine [Mass/Vol] 0.69 mg/dL Normal 0.55-1.02 [facility] Comment on above: Order Comment: N Result Comment: The validity of the calculated GFR GFRAA in patients over 70 years has not been determined. Clinical correlation is essential. Performed By: #### L 500.2900, L100.0200, L400.0100 #### [facility] [address] [place], [address] EST GFR - AA 112 mL/min Normal >60 [facility] Comment on above: Order Comment: N Result Comment: Afri can Irish GFR Calc Performed By: #### L 500.2900, L100.0200, L400.0100 #### [facility] [address] [place], [address] GAP 8 Normal 5-15 [facility] Comment on above: Order Comment: N Performed By: #### L 500.2900, L100.0200, L400.0100 #### [facility] [address] [place], [address] GFR/1.73 sq M.predicted among non-blacks MDRD (S/P/Bld) [Vol rate/Area] 92 mL/min/{1.73_m2} Normal >60 [facility] Comment on above: Order Comment: N Result Comment: Non- GFR Calc Performed By: #### L 500.2900, L100.0200, L400.0100 #### [facility] [address] [place], [address] Globulin (S) [Mass/Vol] 3.5 g/dL Normal 2.2-4.2 [facility] Comment on above: Order Comment: N Performed By: #### L 500.2900, L100.0200, L400.0100 #### [facility] [address] [place], [address] Glucose [Mass/Vol] 89 mg/dL Normal 74-106 [facility] Comment on above: Order Comment: N Performed By: #### L 500.2900, L100.0200, L400.0100 #### [facility] [address] [place], [address] Potassium [Moles/Vol] 4.0 mmol/L Normal 3.5-5.1 [facility] Comment on above: Order Comment: N Performed By: #### L 500.2900, L100.0200, L400.0100 #### [facility] [address] [place], [address] Sodium [Moles/Vol] 137 mmol/L Normal 136-145 [facility] Comment on above: Order Comment: N Performed By: #### L 500.2900, L100.0200, L400.0100 #### [facility] [address] [place], [address] T PROT 7.2 g/dL Normal 6.4-8.2 [facility] Comment on above: Order Comment: N Performed By: #### L 500.2900, L100.0200, L400.0100 #### [facility] [address] [place], [address] Urea nitrogen [Mass/Vol] 16 mg/dL Normal 7-18 [facility] Comment on above: Order Comment: N Performed By: #### L 500.2900, L100.0200, L400.0100 #### [facility] [address] [place], [address] Estradiolon 11-22-2024 ESTRADIOL < 11.0 Normal [facility] Comment on above: Order Comment: N Result Comment: NORM AL REFERENCE RANGES FEMALE FOLLICULAR 21.4 - 164.8 pg/mL MID-CYCLE PEAK 49.9 - 367.2 pg/mL LUTEAL 40.2 - 259.0 pg/mL POST-MENOPAUSAL ON MHT <11.0 - 462.1 pg/mL NOT ON MHT <11.0 - 58.3 pg/mL MALE <11.0 - 52.5 pg/mL NOTE: [facility] HAS CONFIRMED THE DRUG FULVETRANT (FASLODEX) MAY CAUSE FALSELY ELEVATED ESTRADIOL RESULTS WHEN USING THIS TEST METHOD. IF PATIENT IS TAKING FULVESTRANT AN ALTERNATIVE METHOD SHOULD BE USED TO DETERMINE ESTRADIOL CONCENTRATION. Performed By: #### L 500.2900, L100.0200, L400.0100 #### [facility] [address] [place], [address] T4 Free Directon 11-22-2024 T4 FREE DIRECT 0.91 ng/dL Normal 0.76-1.46 [facility] Comment on above: Order Comment: N Performed By: #### L 500.2900, L100.0200, L400.0100 #### [facility] [address] [place], [address] Thyroid Stim Hormone (TSH)on 11-22-2024 TSH 2.060 uIU/mL Normal 0.358-3.74 0 [facility] Comment on above: Order Comment: N Performed By: #### L 500.2900, L100.0200, L400.0100 #### [facility] [address] [place], [address] Vitamin B12on 11-22-2024 Cobalamin (Vitamin B12) [Mass/Vol] 541 pg/mL Normal 211-911 [facility] Comment on above: Performed By: #### L 500.2900, L100.0200, L400.0100 #### [facility] [address] [place], [address] Vitamin D,25 Hydroxyon 11-22 Vitamin D 25-OH 29.5 ng/mL Normal [facility] Comment on above: Result Comment: Jelena min D 25(OH) Status Range Deficiency <20 ng/mL (50nmol/L) Insufficiency 20 - 30 ng/mL (50 - 75 nmol/L) Sufficiency 30 - 100 ng/mL (75 - 250 nmol/L) Toxicity >100 ng/mL (>250 nmol/L) Performed By: #### L 500.2900, L100.0200, L400.0100 #### [facility] [address] [place], [address] Urgent Care Visit Reporton 1 01-05-2024 Urgent Care Visit Report [facility] [address], [address] [place] [address] OFFICE VISIT Date of Service: 11/04/24 MR#: [id number] Acct: [id number] Name: TAMICA BELLAMY Rep #: [id number] : 1965 Provider: RADHA villela Age/Sex: 58/F [place] [facility] [place] Status: Signed Intake Vital Signs 08/21/24 11:30 11/04/24 08:34 Height 5 ft 2 in BP 118/72 Blood Pressure Location Rt brachial Position Sitting Respiration 12 Pulse 90 Pulse Source NIBP Pulse Oximetry (%) 100 Oxygen Delivery Method room air Intake Visit Reasons: ALLERGIC RASH Chief Complaint: allergic rash Allergies diazepam (From Valium) Allergy (Verified 11/04/24 08:37) Other oxycodone HCl (From Percocet) Allergy (Verified 11/04/24 08:37) Other Penicillins Allergy (Verified 11/04/24 08:37) Swelling zolpidem tartrate (From Ambien) Allergy (Verified 11/04/24 08:37) Other diphenhydramine (From Benadryl) Adverse Reaction (Verified 11/04/24 08:37) PALPITATIONS Medications ???Medication ???Instructions ???Recorded ???Confirmed ???Type lorazepam 0.5 mg tablet 0.25 mg PO DAILY PRN PRN Anxiety 01/18/14 11/04/24 History ustekinumab 45 mg/0.5 mL 45 mg subcut .[id number] 06/24/20 11/04/24 History subcutaneous solution (Stelara) COLITIS/PSORISIS estradiol 0.01% (0.1 mg/gram) See Rx Instructions vaginal 11/16/22 11/04/24 History vaginal cream (Estrace) .COMPLEX PRN BLOOD FLOW ibuprofen 800 mg tablet 800 mg PO 4XD PRN Pain 11/16/22 11/04/24 History buspirone 5 mg tablet 7.5 mg PO BID PRN ANXIETY 05/18/24 11/04/24 History clobetasol 0.05 % topical ointment 1 applic topical BID 05/18/24 11/04/24 History dupilumab 100 mg/0.67 mL 200 mg subcut Q2W PRN 05/18/24 11/04/24 History subcutaneous syringe (Dupixent) famotidine 20 mg tablet (Pepcid) 20 mg PO DAILY #7 tabs 08/21/24 11/04/24 Rx prednisone 10 mg tablet 10 mg PO QDAY 7 days #7 tabs 11/04/24 11/04/24 Rx prednisone 20 mg tablet 20 mg PO QDAY 5 days #5 tabs 11/04/24 11/04/24 Rx prednisone 20 mg tablet 20 mg PO QDAY 7 days #7 tabs 11/04/24 11/04/24 Rx Is last menstrual period known: No Post menopausal: Yes Patient : No Have you fallen in the past year?: No [facility] Medical History Mitral valve prolapse Endometriosis determined by laparoscopy Wears contact lenses Wears glasses Blood disorder Injury of head and neck History of colitis History of IBS Non-smoker History of echocardiogram History of irregular heartbeat Hx of flexible sigmoidoscopy Cervical paraspinal muscle spasm Cervical strain Gallbladder polyp Anxiety Factor V Leiden Surgical History H/O bilateral salpingectomy S/P laparoscopic cholecystectomy History of dilation and curettage ( 2004) History of colonoscopy ( 06/2017) History of breast augmentation Family History Sister Asthma Colon cancer Mother Diabetes Heart disease Hypertension CVA (cerebral vascular accident) Social History Smoking Status: Never smoker alcohol intake: current alcohol intake frequency: a few times a week substance use type: does not use caffeine: Yes what type of physical activity do you participate in: walking and running seatbelt use: always additional social history: [facility] surgery Female Reproductive History Menstrual Ab induced: 0 Ab spontaneous: 1 Ectopics: 0 HPI HPI Chief Complaint: allergic rash Details: TAMICA BELLAMY is a 58 F who presents to the office today for full body rash, she picked up pumpkins out of garden and broke out in a full body rash x3 days. She has taken older prednisone at 40mg for two day. She states allergy to pumpkin. She picked up a pumpkin recently and got the rash. She also states using a goat soap. ROS Const Constitutional: No body ache, chills, fatigue, fever(s) or weakness ENT ENT: No nosebleed/epistaxis Cardio Cardiology: No lightheadedness Gastro GI: No Vomiting blood/hematemesis or Black,tarry stools Genitourinary-Female: No Frequent nighttime urination/ nocturia Skin Skin: Positive for rash (torso) Neuro Neurology: No dizziness or weakness Endo Endocrine: No fatigue Exam Const General: cooperative, healthy appearing, comfortable and no acute distress Nutritional Appearance: average body habitus and well nourished Orientation: alert, awake and oriented x3 HENMT Head: normal to inspection Ears: hearing grossly normal bilaterally Nose: external nose normal Face and sinus: face symmetric Mouth: moist mucous membranes Eyes General: appearance normal, both eyes and all related structures Eyelids: eyelid (more content not included)... Normal [facility] Quantiferon TB-Gold+on 10-23 QFT MITOGEN RIC > 10.00 Normal . [facility] Comment on above: Performed By: #### L 3400.8000 #### [facility] [address] [place], [place], [address] QFT NIL VALUE 0 IU/mL Normal . [facility] Comment on above: Performed By: #### L 3400.8000 #### [facility] [address] [place], [place], [address] QFT TB GOLD+ Comment Normal . [facility] Comment on above: Result Comment: Eliud tiFERON-TB Gold Plus is a qualitative indirect test for M tuberculosis infection (including disease) and is intended for use in conjunction with risk assessment, radiography, and other medical and diagnostic evaluations. The QuantiFERON-TB Gold Plus result is determined by subtracting the Nil value from either TB antigen (Ag) value. The Mitogen tube serves as a control for the test. Performed By: #### L 3400.8000 #### [facility] [address] [place], [place], [address] QFT TB POS CRIT Negative Normal Negative [facility] Comment on above: Result Comment: No r esponse to M tuberculosis antigens detected. Infection with M tuberculosis is unlikely, but high risk individuals should be considered for additional testing (ATS/IDSA/CDC Clinical Practice Guidelines, 2017). The reference range is an Antigen minus Nil result of <0.35 IU/mL. The specimen received for QuantiFERON testing was incubated by the ordering institution. Specific procedures outlined in our Directory of Services and in the package insert for the QuantiFERON Gold (In Tube) test must be followed to enable for proper stimulation of cells for the production of interferon gamma. Chemiluminescence immunoassay methodology Performed at: [facility] [id number] Track Repairer Helper: Deo Loera PhD, Phone: [phone] Performed By: #### L 3400.8000 #### [facility] [address] [facility] [place], [address] QFT TB1+ AG RIC 0.03 IU/mL Normal . [facility] Comment on above: Performed By: #### L 3400.8000 #### [facility] [address] [place], [address] QFT TB2+ AG RIC 0.04 IU/mL Normal . [facility] Comment on above: Performed By: #### L 3400.8000 #### [facility] [address] [facility] [place], [address] CNOVon 02-15-2024 CNOV Office Visit (CODY ) TAMICA BELLAMY ([id number]) 1965 F Date Time Provider Department 02/15/24 8:30 AM PURNIMA KEYS During your visit today, we recorded the following information about you: Blood pressure Weight Height 122/76 55.6 kg 1.575 m Purnima Keys MD 02/15/2024 9:23 AM Signed Female Pelvic Medicine AND Reconstructive Surgery Consult CHIEF COMPLAINT: Tamica Bellamy is a 58 year old female who presents for consultation requested by Dr. Luis Manuel Madsen for an opinion regarding lichen sclerosus. My final recommendations will be communicated back to the requesting physician by way of shared Medical record or letter to requesting physician via US mail. HISTORY OF PRESENT ILLNESS: Longstanding lichen slerosus, has failed multiple treatments and her vice president of communications (Amadna) recommended referral to discuss laser therapy. Has had a biopsy to confirm diagnosis. (13-14 years ago) She has used steroids in the past for this but her symptoms would and do always come back after she stops use of the medication. Medical and Symptom History: LMP: Patient's last menstrual period was 01/09/2009.; Menopause ablation: ALLERGIES Allergen Reactions Ambien [Zolpidem Ta* Intolerance withdrawal Codeine GI Upset Penicillins Rash, Swelling Percocet [Oxycodone* Unknown hallucinations Tramadol Other: See Comments Feels strange Valium [Diazepam] Other: See Comments Hyperactive Current Outpatient Medications Medication Sig ustekinumab (STELARA) 45 mg/0.5 mL sub-Q syringe Inject 45 mg subcutaneously one time only. dupilumab (DUPIXENT PEN) 300 mg/2 mL pen injection Inject subcutaneously every 2 weeks. VTAMA 1 % cream estradiol (ESTRACE) 0.01 % (0.1 mg/gram) vaginal cream Use fingertip amount nightly x 3 weeks LORazepam (ATIVAN) 0.5 mg Tab Take 1 tablet by mouth three times daily as needed. clobetasol (TEMOVATE) 0.05 % ointment Apply to affected area TWICE DAILY for 3 months, then wean to a maintenance of 1-2 times per week. No current facility-administered medications for this visit. 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) Depression Generalized anxiety disorder Mitral valve disorders(424.0) Psoriasis UC (ulcerative colitis) ([facility]) Unspecified hypothyroidism FAMILY HISTORY Problem Relation Age of Onset Diabetes Mother Heart Mother Hypertension Mother Stroke Mother Alcohol/Drug Father Blood Disease Father Coronary Artery Disease Father DVT Father Cancer Maternal Grandmother COLON Cancer Sister COLON Alcohol/Drug Sister Alcohol/Drug Brother Blood Disease Sister DVT other (MS) Sister SOCIAL HISTORY Social History Tobacco Use Smoking status: Former Types: Cigarettes Quit date: 11/15/2006 Years since quittin.2 Smokeless tobacco: Never Tobacco comments: quit Vaping Use Vaping Use: Never used Substance Use Topics Alcohol use: Yes Comment: Seldom Drug use: No 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 Review of Systems Constitutional: Negative for chills, diaphoresis and fever. HENT: Negative for drooling, ear discharge, facial swelling, nosebleeds, sore throat and trouble swallowing. Eyes: Negative for discharge, redness, itching and visual disturbance. Respiratory: Negative for apnea, choking, chest tightness, shortness of breath, wheezing and stridor. Cardiovascular: Negative for chest pain and palpitations. Gastrointestinal: Negative for abdominal distention, abdominal pain, anal bleeding, blood in stool, nausea and vomiting. Endocrine: Negative for cold intolerance and heat intolerance. Genitourinary: Negative for genital sores, menstrual problem and vaginal bleeding. Musculoskeletal: Negative for gait problem, myalgias, neck pain and neck stiffness. Skin: Negative for pallor, rash and wound. Allergic/Immunologic: Negative for environmental allergies, food allergies and immunocompromised state. Neurological: Negative for dizziness, seizures, facial asymmetry, speech difficulty, light-headedness, numbness and headaches. Hematological: Negative for adenopathy. Does not bruise/bleed easily. Psychiatric/Behavioral: Negative for agitation, behavioral problems, confusion and hallucinations. OBJECTIVE (more content not included)... Normal [facility] - Microbiology an d Antimicrobial susceptibilityon 12-18-2023 SARS-CoV-2 (COVID-19) RNA AYAH+probe Ql (Unsp spec) Detected [facility] No Panel Informationon 12-18 POC Nasal Swab Influenza A,B Not detected [facility] POC Nasal Swab RSV Not detected [facility] Qualitative QuantiFERON-TB g old in tube testOrdered By: Dr. Martin on 01-13-2023 M. tuberculosis tuberculin stim IFN-g Ql (Bld) 0.01 IU/mL . [facility] Thin prep Papanicolaou smear with manual screeningOrdered By: Dr. Martin on 01-13-2023 Thin prep Papanicolaou smear with manual screening Comment . [facility] Comment on above: QuantiFERON-TB Gold Plus is a qualitative indirect test forM tuberculosis infection (including disease) and isintended for use in conjunction with risk assessment,radiography, and other medical and diagnostic evaluations.The QuantiFERON-TB Gold Plus result is determined bysubtracting the Nil value from either TB antigen (Ag)value. The Mitogen tube serves as a control for the test. Thin prep Papanicolaou smear with manual screening 0.02 IU/mL . [facility] Thin prep Papanicolaou smear with manual screening 0 IU/mL . [facility] Thin prep Papanicolaou smear with manual screening > 10.00 IU/mL . [facility] Thin prep Papanicolaou smear with manual screening Negative Negative [facility] Comment on above: No response to M tub erculosis antigens detected.Infection with M tuberculosis is unlikely, but high riskindividuals should be considered for additional testing(ATS/IDSA/CDC Clinical Practice Guidelines, 2017). Thereference range is an Antigen minus Nil result of <0.35IU/mL.The specimen received for QuantiFERON testing was incubatedby the ordering institution. Specific procedures outlinedin our Directory of Services and in the package insert forthe QuantiFERON Gold (In Tube) test must be followed toenable for proper stimulation of cells for the productionof interferon gamma. Chemiluminescence immunoassaymethodologyPerformed at: [facility] [id number] Director: Deo Loera PhD, Phone: [phone] Absolute lymphocyte countOrd ered By: Dr. Ramon on 11-16-2022 Lymphocytes Auto (Unsp spec) [#/Vol] 1.59 10*3/uL 0.83-4.51 [facility] Basophil percentageOrdered B y: Dr. Ramon on 11-16-2022 Basophils/100 WBC (Bld) 0.5 % 0-1 [facility] Eosinophils/100 WBC (Bld) 1.5 % 0-5 [facility] Neutrophils (Bld) [#/Vol] 6.2 10*3/uL 2.0-7.7 [facility] Neutrophils/100 WBC (Bld) 72.4 % 47-70 [facility] WBC (Bld) [#/Vol] 8.5 10*3/uL 4.4-11.0 [facility] Chloride [Moles/Vol] 106 mmol/L 98-107 [facility] Glucose [Mass/Vol] 113 mg/dL 74-106 [facility] Comment on above: Fasting Glucose resu lt from 100 to 125 mg/dL suggests IMPAIRED HOMEOSTASIS per A.D.A. criteria. Potassium [Moles/Vol] 4.3 mmol/L 3.5-5.1 [facility] Sodium [Moles/Vol] 140 mmol/L 136-145 [facility] Blood erythrocytes count (nu mber/volume)Ordered By: Dr. Ramon on 11-16-2022 RBC (Bld) [#/Vol] 4.64 10*6/uL 4.2-5.4 [facility] Blood hemoglobin measurement (mass/volume)Ordered By: Dr. Ramon on 11-16-2022 Hemoglobin (Bld) [Mass/Vol] 14.2 g/dL 12.0-15.0 [facility] Blood lymphocytes/100 leukoc ytesOrdered By: Dr. Ramon on 11-16-2022 Lymphocytes/100 WBC (Bld) 18.6 % 19-41 [facility] [facility] Blood monocytes/100 leukocyt esOrdered By: Dr. Ramon on 11-16-2022 Monocytes/100 WBC (Bld) 6.8 % 0-10 [facility] Blood platelet mean volumeOr dered By: Dr. Ramon on 11-16-2022 Platelet mean volume (Bld) [Entitic vol] 10.4 fL 6.2-12.0 [facility] Determination of erythrocyte mean corpuscular volume (MCV)Ordered By: Dr. Ramon on 11-16-2022 MCV (RBC) [Entitic vol] 89.2 fL 81-99 [facility] Hematocrit Auto (Bld) [Volum e fraction]Ordered By: Dr. Ramon on 11-16-2022 Hematocrit (Bld) [Volume fraction] 41.4 % 37-47 [facility] Laboratory - Chemistry and C hemistry - challengeOrdered By: Dr. Ramon on 11-16-2022 CO2 [Moles/Vol] 27.0 mmol/L 21.0-32.0 [facility] Urea nitrogen/Creatinine [Mass ratio] 22.5 mg/mg 10-20 [facility] Laboratory - Hematology and Cell countsOrdered By: Dr. Ramon on 11-16-2022 Erythrocyte distribution width (RBC) [Entitic vol] 42.5 fL 35.1-43.9 [facility] Erythrocyte distribution width (RBC) [Ratio] 13.0 % 11.6-14.6 [facility] Immature granulocytes/100 WBC (Bld) 0.200 % 0.0-0.9 [facility] Comment on above: IG% - Immature Granu locytes (promyelocytes, myelocytes and metamyelocytes) > 1% indicates that a LEFT SHIFT is Present. MCH (RBC) [Entitic mass] 30.6 pg 27.0-32.0 [facility] Nucleated RBC/100 WBC (Bld) [Ratio] 0 % 0-5 [facility] MCHC Auto (RBC) [Mass/Vol]Or dered By: Dr. Ramon on 11-16-2022 MCHC (RBC) [Mass/Vol] 34.3 g/dL 32-36 [facility] No Panel InformationOrdered By: Dr. Ramon on 11-16-2022 Troponin I High Sensitivity < 3 pg/mL 3.0-54.0 [facility] Comment on above: Please Note: New Daphnie t Units and Gender Specific Reference Ranges. For more information see Policy Stat Procedure [place] High Sensitivity Troponin (TNIH) and attachments. Estimated Creatinine Clearance Calc 63.04 ml/min [facility] Estimated GFR (MDRD) Amer 101 mL/min >60 [facility] Comment on above: GFR Calc Estimated GFR (MDRD) Non-Af Amer 83 mL/min >60 [facility] Comment on above: Non- GFR Calc Platelets bldOrdered By: Dr. Ramon on 11-16-2022 Platelets (Bld) [#/Vol] 245 10*3/uL 150-450 [facility] Serum or plasma calcium barber urement (mass/volume)Ordered By: Dr. Ramon on 11-16-2022 Calcium [Mass/Vol] 9.4 mg/dL 8.5-10.1 [facility] Serum or plasma creatinine m easurement (mass/volume)Ordered By: Dr. Ramon on 11-16-2022 Creatinine [Mass/Vol] 0.76 mg/dL 0.55-1.02 [facility] Comment on above: The validity of the calculated GFR & GFRAA in patients over 70 years has not been determined. Clinical correlation is essential. Serum or plasma urea nitroge n measurement (mass/volume)Ordered By: Dr. aRmon on 11-16-2022 Urea nitrogen [Mass/Vol] 17 mg/dL 7-18 [facility] Thin prep Papanicolaou smear with manual screeningOrdered By: Dr. Ramon on 11-16-2022 Thin prep Papanicolaou smear with manual screening 7 5-15 [facility] Absolute lymphocyte counton 08-04-2022 Lymphocytes Auto (Unsp spec) [#/Vol] 1.87 10*3/uL 0.83-4.51 [facility] Work Phone: Absolute reticulocyte counto n 08-04-2022 Reticulocytes (Bld) [#/Vol] 0.00 10*3/uL 0-5 [facility] Work Phone: [phone] Basophil percentageon 2021 Basophil percentage 3.4 mg/dL 2.5-4.9 [facility] Work Phone: [phone] Bilirubin [Mass/Vol] 0.90 mg/dL 0.20-1.00 [facility] Work Phone: [phone] Comment on above: For patients on eltr ombopag therapy, use of Dimension [place] TBIL is not recommended. Chloride [Moles/Vol] 105 mmol/L 98-107 [facility] Work Phone: Cholesterol [Mass/Vol] 237 mg/dL <200 [facility] Work Phone: Comment on above: <200 mg/dL Desirable 200-240 mg/dL Borderline >240 mg/dL High Risk Glucose [Mass/Vol] 98 mg/dL 74-106 [facility] Work Phone: Neutrophils (Bld) [#/Vol] 2.4 10*3/uL 2.0-7.7 [facility] Work Phone: Potassium [Moles/Vol] 3.8 mmol/L 3.5-5.1 [facility] Work Phone: Protein [Mass/Vol] 7.1 g/dL 6.4-8.2 [facility] Work Phone: Sodium [Moles/Vol] 139 mmol/L 136-145 [facility] Work Phone: Triglyceride [Mass/Vol] 145 mg/dL <199 [facility] Work Phone: Comment on above: The drugs N-Acetylcy steine and Metamizole may falsely depress this assay.Serum Triglycerides Reference Interval Normal <150 mg/dL Borderline high 150 - 199 mg/dL High 200 - 499 mg/dL Very High > or = 500 mg/dL WBC (Bld) [#/Vol] 5.0 10*3/uL 4.4-11.0 [facility] Work Phone: Blood erythrocytes count (nu mber/volume)on 08-04-2022 RBC (Bld) [#/Vol] 4.69 10*6/uL 4.2-5.4 [facility] Work Phone: Blood hemoglobin measurement (mass/volume)on 08-04-2022 Hemoglobin (Bld) [Mass/Vol] 13.8 g/dL 12.0-15.0 [facility] Work Phone: Blood platelet mean volumeon 08-04-2022 Platelet mean volume (Bld) [Entitic vol] 10.6 fL 6.2-12.0 [facility] Work Phone: Determination of erythrocyte mean corpuscular volume (MCV)on 08-04-2022 MCV (RBC) [Entitic vol] 93.0 fL 81-99 [facility] Work Phone: [phone] Direct bilirubinon Bilirubin.direct [Mass/Vol] 0.17 mg/dL 0.00-0.30 [facility] Work Phone: [phone] Hematocrit Auto (Bld) [Volum e fraction]on 08-04-2022 Hematocrit (Bld) [Volume fraction] 43.6 % 37-47 [facility] Work Phone: [phone] Laboratory - Chemistry and C hemistry - challengeon 08-04-2022 ALP [Catalytic activity/Vol] 89 U/L 45-117 [facility] Work Phone: [phone] ALT [Catalytic activity/Vol] 24 U/L 13-56 [facility] Work Phone: [phone] Cholesterol.total/C holesterol in HDL [Mass ratio] 3.60 {ratio} [facility] Work Phone: [phone] CO2 [Moles/Vol] 28.0 mmol/L 21.0-32.0 [facility] Work Phone: [phone] Globulin (S) [Mass/Vol] 3.6 g/dL 2.2-4.2 [facility] Work Phone: [phone] Urea nitrogen/Creatinine [Mass ratio] 25.9 mg/mg 10-20 [facility] Work Phone: [phone] Laboratory - Hematology and Cell countson 08-04-2022 Erythrocyte distribution width (RBC) [Entitic vol] 46.2 fL 35.1-43.9 [facility] Work Phone: Erythrocyte distribution width (RBC) [Ratio] 13.7 % 11.6-14.6 [facility] Work Phone: [phone] MCH (RBC) [Entitic mass] 29.4 pg 27.0-32.0 [facility] Work Phone: [phone] Nucleated RBC/100 WBC (Bld) [Ratio] 0 % 0-5 [facility] Work Phone: MCHC Auto (RBC) [Mass/Vol]on 08-04-2022 MCHC (RBC) [Mass/Vol] 31.7 g/dL 32-36 [facility] Work Phone: No Panel Informationon 08-04 Estimated GFR (MDRD) Amer 104 mL/min >60 [facility] Work Phone: Comment on above: GFR Calc Estimated GFR (MDRD) Non-Af Amer 86 mL/min >60 [facility] Work Phone: Comment on above: Non- GFR Calc Platelets bldon 08-04-2022 Platelets (Bld) [#/Vol] 242 10*3/uL 150-450 [facility] Work Phone: Segmented neutrophils/100 WB C Auto (Bld)on 08-04-2022 Segmented neutrophils/100 WBC (Bld) 48.5 % 47-70 [facility] Work Phone: Serum or plasma albumin barber urement (mass/volume)on 08-04-2022 Albumin [Mass/Vol] 3.5 g/dL 3.2-5.0 [facility] Work Phone: Serum or plasma albumin/glob ulin mass ratioon 08-04-2022 Albumin/Globulin [Mass ratio] 1.0 {ratio} 0.9-2.4 [facility] Work Phone: Serum or plasma calcium barber urement (mass/volume)on 08-04-2022 Calcium [Mass/Vol] 8.8 mg/dL 8.5-10.1 [facility] Work Phone: Serum or plasma cholesterol in HDL measurement (mass/volume)on 08-04-2022 Cholesterol in HDL [Mass/Vol] 66 mg/dL >40 [facility] Work Phone: Comment on above: The drugs N-Acetylcy steine and Metamizole may falsely depress this assay. Reference Range HDL <40 mg/dL Low HDL Cholesterol HDL >or= 60 mg/dL High HDL Cholesterol Serum or plasma cholesterol in VLDL measurement (mass/volume)on 08-04-2022 Cholesterol in VLDL [Mass/Vol] 29 mg/dL 5-40 [facility] Work Phone: Serum or plasma creatinine m easurement (mass/volume)on 08-04-2022 Creatinine [Mass/Vol] 0.74 mg/dL 0.55-1.02 [facility] Work Phone: Comment on above: The validity of the calculated GFR & GFRAA in patients over 70 years has not been determined. Clinical correlation is essential. Serum or plasma low density lipoprotein (LDL) cholesterol measurement (mass/volume)on 08-04-2022 Cholesterol in LDL [Mass/Vol] 142 mg/dL 0-130 [facility] Work Phone: Serum or plasma urea nitroge n measurement (mass/volume)on 08-04-2022 Urea nitrogen [Mass/Vol] 19 mg/dL 7-18 [facility] Work Phone: Serum or plasma uric acid me asurement (mass/volume)on 08-04-2022 Urate [Mass/Vol] 3.1 mg/dL 2.6-6.0 [facility] Work Phone: Comment on above: The drugs N-Acetylcy steine and Metamizole may falsely depress this assay. Thin prep Papanicolaou smear with manual screeningon 08-04-2022 Thin prep Papanicolaou smear with manual screening 23 U/L 15-37 [facility] Work Phone: Thin prep Papanicolaou smear with manual screening 6 5-15 [facility] Work Phone: Thin prep Papanicolaou smear with manual screening 200 U/L 84-246 [facility] Work Phone: Qualitative QuantiFERON-TB g old in tube teston 01-21-2022 M. tuberculosis tuberculin stim IFN-g Ql (Bld) 0.03 IU/mL [facility] Work Phone: Thin prep Papanicolaou smear with manual screeningon 01-21-2022 Thin prep Papanicolaou smear with manual screening Comment [facility] Work Phone: Comment on above: The QuantiFERON-TB G old Plus result is determined bysubtracting the Nil value from either TB antigen (Ag) tube.The mitogen tube serves as a control for the test. Thin prep Papanicolaou smear with manual screening 0.02 IU/mL [facility] Work Phone: Thin prep Papanicolaou smear with manual screening 0.01 IU/mL [facility] Work Phone: Thin prep Papanicolaou smear with manual screening 4.08 IU/mL [facility] Work Phone: Thin prep Papanicolaou smear with manual screening Negative Negative [facility] Work Phone: Comment on above: The specimen receive d for QuantiFERON testing was incubatedby the ordering institution. Specific procedures outlinedin our Directory of Services and in the package insert forthe QuantiFERON Gold (In Tube) test must be followed toenable for proper stimulation of cells for the productionof interferon gamma. Chemiluminescence immunoassaymethodologyPerformed at: [facility] [address] [id number] Director: Deo Loera PhD, Phone: [phone] Office Visit: UC: Earache/So re throaton 05-06-2017 Alcoholism counseling (procedure) no Invalid Interpretation Code [facility] Work Phone: Documentation of current medications (procedure) Done Invalid Interpretation Code [facility] Work Phone: Fall risk assessment No [facility] Work Phone: Protein mass conc no [facility] Work Phone: Protein mass conc Done [facility] Work Phone: Tobacco smoking status NHIS Never [facility] Work Phone: Tobacco smoking status NHIS Never smoker [facility] Work Phone: Tobacco use [facility] Never smoker Invalid Interpretation Code [facility] Work Phone: Clinical Lists Update: [facility] 05-28-2016 Left ventricular Ejection fraction 65 % [facility] Work Phone: Lab Report: CBC W/Diff, Auto matedon 04-29-2016 Basophils/100 leukocytes 0.4 % Invalid Interpretation Code 0-1 [facility] Work Phone: Basophils/100 WBC (Bld) 0.4 % 0-1 [facility] Work Phone: Eosinophils/100 leukocytes 2.0 % Invalid Interpretation Code 0-5 [facility] Work Phone: Eosinophils/100 WBC (Bld) 2.0 % 0-5 [facility] Work Phone: [phone] Erythrocyte distribution width Ratio (RBC) 41.2 fL 35.1-43.9 [facility] Work Phone: [phone] Erythrocyte distribution width Ratio (RBC) 12.8 % 11.6-14.6 [facility] Work Phone: [phone] Erythrocytes (RBC) 4.41 10*6/uL Invalid Interpretation Code 4.2-5.4 [facility] Work Phone: Hematocrit (HCT) 38.9 % Invalid Interpretation Code 37-47 [facility] Work Phone: Hematocrit Volume Fraction (Bld) 38.9 % 37-47 [facility] Work Phone: Hemoglobin (HGB) 13.0 g/dL 12.0-15.0 [facility] Work Phone: Immature granulocytes #/vol (Bld) 0.200 % 0.0-0.9 [facility] Work Phone: [phone] immature granulocytes, percentage of total cells, blood 0.200 % Invalid Interpretation Code 0.0-0.9 [facility] Work Phone: [phone] Lymphocytes 1.73 X10 3/UL Invalid Interpretation Code 0.83-4.51 [facility] Work Phone: [phone] Lymphocytes #/vol (Bld) 1.73 X10 3/UL 0.83-4.51 [facility] Work Phone: [phone] Lymphocytes/100 leukocytes 32.0 % Invalid Interpretation Code 19-41 [facility] Work Phone: [phone] Lymphocytes/100 WBC (Bld) 32.0 % 19-41 [facility] Work Phone: MCH 29.5 pg Invalid Interpretation Code 27.0-32.0 [facility] Work Phone: MCH Entitic mass (RBC) 29.5 pg 27.0-32.0 [facility] Work Phone: [phone] MCHC 33.4 G/GL Invalid Interpretation Code 32-36 [facility] Work Phone: MCHC mass conc (RBC) 33.4 G/GL 32-36 [facility] Work Phone: [phone] MCV 88.2 fL Invalid Interpretation Code 81-99 [facility] Work Phone: MCV Entitic volume (RBC) 88.2 fL 81-99 [facility] Work Phone: [phone] Monocytes/100 leukocytes 7.8 % Invalid Interpretation Code 0-10 [facility] Work Phone: [phone] Monocytes/100 WBC (Bld) 7.8 % 0-10 [facility] Work Phone: [phone] neutrophil count, blood 3.1 X10 3/UL Invalid Interpretation Code 2.0-7.7 [facility] Work Phone: [phone] Neutrophils #/vol (Bld) 3.1 X10 3/UL 2.0-7.7 [facility] Work Phone: [phone] Neutrophils/100 leukocytes 57.6 % Invalid Interpretation Code 47-70 [facility] Work Phone: [phone] Neutrophils/100 WBC (Bld) 57.6 % 47-70 [facility] Work Phone: [phone] Platelet mean volume Entitic volume (Bld) 10.8 fL 6.2-12.0 [facility] Work Phone: [phone] Platelets 220 10*3/mm3 Invalid Interpretation Code 150-450 [facility] Work Phone: [phone] Platelets #/vol (Bld) 220 10*3/mm3 150-450 [facility] Work Phone: PMV by Eleuterio 10.8 fL Invalid Interpretation Code 6.2-12.0 [facility] Work Phone: RBC #/vol (Bld) 4.41 10*6/uL 4.2-5.4 [facility] Work Phone: RDW-CA 12.8 % Invalid Interpretation Code 11.6-14.6 [facility] Work Phone: red blood cell distribution width, size density 41.2 fL Invalid Interpretation Code 35.1-43.9 [facility] Work Phone: WBC #/vol (Bld) 5.4 10*3/uL 4.4-11.0 [facility] Work Phone: WBC (Leukocytes) 5.4 10*3/uL Invalid Interpretation Code 4.4-11.0 [facility] Work Phone: Lab Report: Ferritinon 04-29 Ferritin 80 ng/mL 8-252 [facility] Work Phone: Lab Report: Thyroid Stim Hor shekhar (TSH)on 04-29-2016 Thyroid stimulating hormone (TSH) 2.03 u[iU]/mL 0.358-3.74 [facility] Work Phone: Lab Report: Celiac AB,Compre hensiveon 01-17-2016 anti-gliadin antibody, IGA, serum 4 Invalid Interpretation Code 0-19 [facility] Work Phone: anti-gliadin antibody, IGG, serum 5 Invalid Interpretation Code 0-19 [facility] Work Phone: ANTIGLIADIN IGA 4 0-19 [facility] Work Phone: ANTIGLIADIN IGG 5 0-19 [facility] Work Phone: Endomysial Antibody IGA Screen, Serum Negative Invalid Interpretation Code Negative [facility] Work Phone: ENDOMYSIAL IGA Negative Negative [facility] Work Phone: IgA 205 mg/dL 91-414 [facility] Work Phone: TTG (tissue transglutaminase antibody) <2 U/mL Invalid Interpretation Code 0-3 [facility] Work Phone: tTG IGA <2 U/mL 0-3 [facility] Work Phone: TTG IgG <2 U/mL 0-5 [facility] Work Phone: Lab Report: Follicle Stimula ting Hormoneon 01-15-2016 follicle stimulating hormone, serum 128.9 m[iU]/mL [facility] Work Phone: Lab Report: Basic Metabolic Profile (BMP)on 05-13-2015 Anion gap 5 mmol/L Invalid Interpretation Code 5-15 [facility] Work Phone: Anion gap molar conc 5 mmol/L 5-15 [facility] Work Phone: BUN/Creatinine Ratio 18.6 RATIO 10-20 [facility] Work Phone: Calcium 8.8 mg/dL 8.5-10.1 [facility] Work Phone: Chloride 104 mmol/L 98-107 [facility] Work Phone: CO2 30.0 mmol/L Invalid Interpretation Code 21.0-32.0 [facility] Work Phone: CO2 ppres (BldV) 30.0 mmol/L 21.0-32.0 [facility] Work Phone: Creatinine 75.20 mL/min Invalid Interpretation Code [facility] Work Phone: Creatinine 0.7 mg/dL 0.6-1.0 [facility] Work Phone: eGFR (non-black) 114 mL/min/{1.73_m2} Invalid Interpretation Code >60 [facility] Work Phone: eGFR (non-black) 94 mL/min/{1.73_m2} >60 [facility] Work Phone: EST GFR - AA 114 mL/min >60 [facility] Work Phone: Glucose 90 mg/dL Invalid Interpretation Code 70-110 [facility] Work Phone: Glucose mass conc 90 mg/dL 70-110 [facility] Work Phone: Potassium 3.9 mmol/L 3.5-5.1 [facility] Work Phone: Sodium 139 mmol/L 136-145 [facility] Work Phone: Urea nitrogen 13 mg/dL 7-18 [facility] Work Phone: Lab Report: D-Dimer Quantita tive (DVT/PE)on 05-13-2015 D-dimer quantitative mcg/mL < 0.27 FEU/ug/m Low 0.27-0.49 [facility] Work Phone: D-DIMER QUANT < 0.27 FEU/ug/m Low 0.27-0.49 [facility] Work Phone: Lab Report: CBC, Employeeon 04-21-2015 Absolute Neut 2.0 X10 3/UL 2.0-7.7 [facility] Work Phone: Absolute Neutrophil count 2.0 X10 3/UL Invalid Interpretation Code 2.0-7.7 [facility] Work Phone: Erythrocyte distribution width Ratio (RBC) 13.5 % 11.6-14.6 [facility] Work Phone: Lymphocytes 1.48 X10 3/UL Invalid Interpretation Code 0.83-4.51 [facility] Work Phone: Lymphocytes #/vol (Bld) 1.48 X10 3/UL 0.83-4.51 [facility] Work Phone: RDW-CA 13.5 % Invalid Interpretation Code 11.6-14.6 [facility] Work Phone: Lab Report: Employee Profile on 04-21-2015 Alanine aminotransferase (ALT) 27 U/L 12-78 [facility] Work Phone: Albumin 3.7 g/dL 3.4-5.0 [facility] Work Phone: [phone] Albumin/Globulin Ratio 1.1 {ratio} 0.9-2.4 [facility] Work Phone: Alkaline phosphatase (ALP) 87 U/L Invalid Interpretation Code 50-136 [facility] Work Phone: ALP enzyme act/vol (Bld) 87 U/L 50-136 [facility] Work Phone: Aspartate aminotransferase (AST) 21 U/L 15-37 [facility] Work Phone: Bilirubin (direct) 0.16 mg/dL 0.00-0.30 [facility] Work Phone: Bilirubin (total) 1.10 mg/dL High 0.20-1.00 [facility] Work Phone: Cholesterol 189 mg/dL 200 [facility] Work Phone: Globulin 3.3 g/dL Invalid Interpretation Code 2.7-4.2 [facility] Work Phone: Globulin mass conc (S) 3.3 g/dL 2.7-4.2 [facility] Work Phone: HDL Cholesterol 46 mg/dL [facility] Work Phone: Lactate dehydrogenase (LDH) 176 U/L 87-241 [facility] Work Phone: LDL Cholesterol 123 mg/dL 0-130 [facility] Work Phone: PHOS 3.7 mg/dL 2.5-4.9 [facility] Work Phone: Phosphorus Concentratation-Ran dom 3.7 mg/dL Invalid Interpretation Code 2.5-4.9 [facility] Work Phone: Protein 7.0 g/dL 6.4-8.2 [facility] Work Phone: Triglyceride 100 mg/dL 0-199 [facility] Work Phone: Urate 3.2 mg/dL 2.6-6.0 [facility] Work Phone: very low density lipoproteins 20 mg/dL 5-40 [facility] Work Phone: Lab Report: UrinalysisGwen 04-21-2015 Albumin Ql (U) Negative Negative [facility] Work Phone: Bilirubin Ql (U) Negative Negative [facility] Work Phone: Ketones mass conc (U) Negative Negative [facility] Work Phone: Nitrite Urine Negative Invalid Interpretation Code Negative [facility] Work Phone: Occult Blood, urine Negative Invalid Interpretation Code Negative [facility] Work Phone: OCCULT BLOOD-UR Negative Negative [facility] Work Phone: pH (U) 6.0 [pH] 5.0 - 8.0 [facility] Work Phone: specific gravity, urine 1.015 1.002-1.03 0 [facility] Work Phone: Urine, bilirubin presence Negative Invalid Interpretation Code Negative [facility] Work Phone: Urine, clarity Sl. Cloudy Clear [facility] Work Phone: Urine, color Yellow Yellow [facility] Work Phone: Urine, glucose presence Normal mg/dl Normal [facility] Work Phone: Urine, ketones presence Negative Invalid Interpretation Code Negative [facility] Work Phone: Urine, leukocyte esterase presence Negative Negative [facility] Work Phone: Urine, pH 6.0 [pH] Invalid Interpretation Code 5.0 - 8.0 [facility] Work Phone: Urine, protein Negative Invalid Interpretation Code Negative [facility] Work Phone: urobilinogen, urine, by dipstick Normal mg/dl Invalid Interpretation Code Normal [facility] Work Phone: Replaced Document: Kelly Martinez 10-31-2013 EKG QRS axis 73 deg [facility] Work Phone: electrocardiogram interpretation Sinus Rhythm -RSR(V1) -nondiagnostic . PROBABLY NORMAL Invalid Interpretation Code [facility] Work Phone: Interpretation Sinus Rhythm -RSR(V1 ) -nondiagnostic . PROBABLY NORMAL [facility] Work Phone: [phone] P [place] [place] -1 deg [facility] Work Phone: [phone] P wave axis, electrocardiogram -1 deg Invalid Interpretation Code [facility] Work Phone: [phone] AL Interval 124 ms [facility] Work Phone: [phone] AL interval, electrocardiogram 124 ms Invalid Interpretation Code [facility] Work Phone: [phone] Pulse (Heart Rate) 402 ms Invalid Interpretation Code [facility] Work Phone: [phone] Pulse (Heart Rate) 77 /min Invalid Interpretation Code [facility] Work Phone: QRS axis, electrocardiogram 73 deg Invalid Interpretation Code [facility] Work Phone: [phone] QRS Duration 76 ms [facility] Work Phone: [phone] QRS duration, electrocardiogram 76 ms Invalid Interpretation Code [facility] Work Phone: [phone] QT Interval new path ms [facility] Work Phone: [phone] QT interval, electrocardiogram new path ms Invalid Interpretation Code [facility] Work Phone: T [place] 42 deg [facility] Work Phone: T wave axis, electrocardiogram 42 deg Invalid Interpretation Code [facility] Work Phone: Vital Signs Date Time Vital Sign Value Performing Clinician Facility 02-15-2024 08:33-0400 Body height 157.5 cm Purnima Keys MD Work Phone: [facility] 02-15-2024 08:33-0400 Body weight 55.61 kg Purnima Keys MD Work Phone: [facility] 02-15-2024 08:33-0400 Diastolic blood pressure 76 mm[Hg] Purnima Keys MD Work Phone: [facility] 02-15-2024 08:33-0400 Systolic blood pressure 122 mm[Hg] Purnima Keys MD Work Phone: [facility] 12-18-2023 09:58-0500 Body temperature 98.3 [degF] Dr. Luis Manuel Madsen Work Phone: [facility] 12-18-2023 09:58-0500 Diastolic blood pressure 80 mm[Hg] Dr. Luis Manuel Madsen Work Phone: [facility] 12-18-2023 09:58-0500 Heart rate 125 /min Dr. Luis Manuel Madsen Work Phone: [facility] 12-18-2023 09:58-0500 Respiratory rate 14 /min Dr. Luis Manuel Madsen Work Phone: [facility] 12-18-2023 09:58-0500 SaO2% (BldA) [Mass fraction] 98 % Dr. Luis Manuel Madsen Work Phone: [facility] 12-18-2023 09:58-0500 Systolic blood pressure 146 mm[Hg] Dr. Luis Manuel Madsen Work Phone: [facility] 11-16-2022 11:42-0500 Diastolic blood pressure 76 mm[Hg] [facility] 11-16-2022 11:42-0500 Heart rate 68 /min [facility] 11-16-2022 11:42-0500 Respiratory rate 14 /min [facility] 11-16-2022 11:42-0500 SaO2% (BldA) [Mass fraction] 98 % [facility] 11-16-2022 11:42-0500 Systolic blood pressure 128 mm[Hg] [facility] 11-16-2022 08:14-0500 Body height 157.48 cm [facility] 11-16-2022 08:14-0500 Body mass index (BMI) [Ratio] 21.9 kg/m2 [facility] 11-16-2022 08:14-0500 Body temperature 98.3 [degF] [facility] 11-16-2022 08:14-0500 Body weight 54.43 kg [facility] 07-01-2022 14:07-0400 Body height 157.[address] Luis Manuel Madsen Work Phone: [facility] Work Phone: 07-01-2022 14:07-0400 Body mass index (BMI) [Ratio] 21.9 kg/m2 Dr. Luis Manuel Madsen Work Phone: [facility] Work Phone: 07-01-2022 14:07-0400 Body weight 54.[address] Luis Manuel Madsen Work Phone: [facility] Work Phone: 07-01-2022 14:07-0400 Diastolic blood pressure 82 mm[Hg] Dr. Luis Manuel Madsen Work Phone: [facility] Work Phone: 07-01-2022 14:07-0400 Systolic blood pressure 131 mm[Hg] Dr. Luis Manuel Madsen Work Phone: [facility] Work Phone: 05-07-2022 14:55-0400 Body temperature 99.3 [degF] Dr. Luis Manuel Madsen Work Phone: [facility] Work Phone: 05-07-2022 14:55-0400 Diastolic blood pressure 68 mm[Hg] Dr. Luis Manuel Madsen Work Phone: [facility] Work Phone: 05-07-2022 14:55-0400 Heart rate 98 /min Dr. Luis Manuel Madsen Work Phone: [facility] Work Phone: 05-07-2022 14:55-0400 Respiratory rate 15 /min Dr. Luis Manuel Madsen Work Phone: [facility] Work Phone: 05-07-2022 14:55-0400 SaO2% (BldA) [Mass fraction] 98 % Dr. Luis Manuel Madsen Work Phone: [facility] Work Phone: 05-07-2022 14:55-0400 Systolic blood pressure 126 mm[Hg] Dr. Luis Manuel Madsen Work Phone: [facility] Work Phone: 04-07-2022 14:36-0400 Body mass index (BMI) [Ratio] 21.9 kg/m2 Dr. Luis Manuel Madsen Work Phone: [facility] Work Phone: 04-07-2022 14:36-0400 Body weight 54.[address] Luis Manuel Madsen Work Phone: [facility] Work Phone: 04-07-2022 14:36-0400 Body height 157.[address] Luis Manuel Madsen Work Phone: [facility] Work Phone: 04-07-2022 14:36-0400 Body mass index (BMI) [Ratio] 21.9 kg/m2 Dr. Luis Manuel Madsen Work Phone: [facility] Work Phone: 04-07-2022 14:36-0400 Body weight 54.[address] Luis Manuel Madsen Work Phone: [facility] Work Phone: 05-06-2017 11:52-0400 BMI (Body Mass Index) 20.25 kg/m2 Lynette Ferreira H[employer] CELL TECHNICIAN [facility] Work Phone: 05-06-2017 11:52-0400 Body Temperature 99.2 [degF] Lynette Ferreira LPN [facility] Work Phone: 05-06-2017 11:52-0400 BP Diastolic 56 mm[Hg] Lynette Ferreira LPN [facility] Work Phone: 05-06-2017 11:52-0400 BP Systolic 104 mm[Hg] Lynette Ferreira LPN [facility] Work Phone: 05-06-2017 11:52-0400 Height 158.12 cm Lynette Ferreira LPN [facility] Work Phone: 05-06-2017 11:52-0400 Pulse (Heart Rate) 98 /min Lynette Ferreira LPN [facility] Work Phone: 05-06-2017 11:52-0400 Pulse Oximetry 98 % Lynette Ferreira LPN [facility] Work Phone: 05-06-2017 11:52-0400 Respiratory Rate 16 /min Lynette Ferreira LPN [facility] Work Phone: 05-06-2017 11:52-0400 Weight 50.62 kg Lynette Ferreira LPN [facility] Work Phone: 09-09-2015 12:30-0400 BSA (Body Surface Area) 1.57 m2 [facility] Work Phone: 05-13-2015 11:10-0400 Body surface area Derived from formula 75.20 mL/min Rasheed LOVE [facility] Work Phone: 10-31-2013 15:05-0500 Heart rate 402 ms Rasheed LOVE [facility] Work Phone: 10-31-2013 15:05-0500 Heart rate 77 /min Rasheed LOVE [facility] Work Phone: Encounters Encounter Date Encounter Type Care Provider Facility Start: 09-25-2025 ambulatory Sreekanth Sherman Facility: [facility] Start: 09-10-2025 End: 09-10-2025 ambulatory Arpitacarlyn Restrepo [facility] Facility:[facility] Start: 08-22-2025 End: 08-22-2025 ambulatory Arpita Lauro [facility] Facility:[facility] Start: 07-31-2025 Encounter for genera l adult medical examination with abnormal findings Arpita Restrepo [facility] Start: 07-31-2025 ambulatory [facility] Fa cility:[facility] Start: 05-30-2025 ambulatory Health Risk Assessment Facility:[facility] Start: 03-11-2025 ambulatory Irais Gabrielle Facility:[facility] Start: 12-29-2024 End: 12-29-2024 ambulatory [facility] Facility:[facility] Start: 11-22-2024 End: 11-22-2024 ambulatory [facility] Facility:[facility] Start: 11-04-2024 End: 11-04-20[facility] Start: 10-20-2024 End: 10-20-2024 ambulatory Augusto Wattersy Facility:[facility] Start: 02-15-2024 End: 02-15-2024 ambulatory PURNIMA KEYS Facility:[facility] Start: 02-15-2024 End: 02-15-2024 Office consultation new/estab patient 60 min Purnima Keys MD Work Phone: URO/Gynecology Comment on above: Lichen sclerosus et atrophicus (Primary Dx); Vaginal atrophy Start: 01-23-2024 End: 01-23-[address] Luis Manuel Madsen Work Phone: [facility] Work Phone: Start: 01-23-2024 End: 01-23-[address] Luis Manuel Madsen Work Phone: [facility]-Radiology, [facility] Work Phone: Start: 12-18-2023 End: 12-18-[address] Luis Manuel Madsen Work Phone: [facility] Work Phone: Start: 01-13-2023 End: 01-13-2023 ambulatory [facility] Work Phone: Start: 01-13-2023 End: 01-13-2023 Patient encounter procedure [facility]-Laboratory Start: 11-16-2022 End: 11-16-2022 Emergency department patient visit [facility]-Emergency Department Start: 10-21-2022 End: 10-21-2022 ambulatory [facility] Work Phone: Start: 10-21-2022 End: 10-21-2022 [facility] Start: 08-04-2022 Registered Referred [facility] Start: 07-23-2022 End: 07-23-[address] Luis Manuel Madsen Work Phone: [facility] Work Phone: Start: 07-23-2022 End: 07-23-[address] Luis Manuel Madsen Work Phone: [facility]-MRI - [facility] Start: 07-01-2022 End: 07-01-[address] Luis Manuel Madsen Work Phone: [facility] Start: 05-07-2022 End: 05-07-[address] Luis Manuel Madsen Work Phone: [facility] Start: 04-07-2022 End: 04-07-[address] Luis Manuel Madsen Work Phone: [facility] Start: 04-06-2022 End: 04-06-[address] Luis Manuel Madsen Work Phone: [facility] Start: 01-21-2022 End: 01-21-[address] Luis Manuel Madsen Work Phone: [facility]-Laboratory Procedures Date Procedure Procedure Detail Performing Clinician Start: 01-23-2024 Plain x-ray of elbow Dr Ruslan Madsen Work Phone: Start: 11-16-2022 Plain chest X-ray Start: 10-21-2022 Plain X-ray of toe Start: 07-23-2022 MRI of cervical spine Cinid Madsen Work Phone: Start: 04-06-2022 X-ray of cervical spine Dr. Luis Manuel Madsen Work Phone: Start: 04-29-2016 End: 04-29-2016 *CBC with Differential Gregorio Puente O Work Phone: Start: 04-29-2016 End: 04-29-2016 Ferritin Gregorio Mena DO Work Phone: Start: 04-29-2016 End: 04-29-2016 Thyroid stimulating hormone (TSH) Gregorio Mena DO Work Phone: Start: 06-26-2015 Adult health examination Well adult/preventative care Rasheed LOVE Start: 04-21-2015 End: 04-21-2015 Urinalysis Rasheed LOVE Start: 12-26-2014 Well woman health examination Nrmv-qfosx-bdhdxykbgp c exam Rasheed LOVE Start: 11-27-2014 End: 11-28-2014 Urinalysis complete panel - Urine Luis Manuel Madsen DO Work Phone: Start: 11-22-2014 End: 11-22-2014 Urinalysis complete panel - Urine Luis Manuel Madsen, DO Work Phone: Start: 09-13-2014 End: 09-18-2014 *CBC with Differential Luis Manuel Madsen DO Work Phone: Start: 09-13-2014 End: 09-18-2014 *CMP Complete Metabolic Panel Luis Manuel Madsen, DO Work Phone: Start: 09-13-2014 End: 09-18-2014 Thyroid stimulating hormone (TSH) Luis Manuel Madsen DO Work Phone: Start: 09-13-2014 End: 09-18-2014 Thyroxine (T4) free Luis Manuel Madsen DO Work Phone: Start: 04-02-2014 Colonoscopy Purnima Keys MD Work Phone: Plan of Treatment Date Care Activity Detail Author Start: 07-15-2024 Influenza vaccination Influenza Vaccine (Season Ended) [facility] Start: 04-02-2024 Screening for malignant neoplasm of colon [facility] Start: 11-14-2023 Depression Assessment Depression Assessment [facility] Start: 2023 RSV Vaccine (1 - 1-dose 60+ series) RSV Vaccine (1 - 1-dose 60+ series) [facility] Start: 11-16-2022 [facility] Start: 07-16-2017 Screening for malignant neoplasm of breast Mammogram Screening [facility] Start: 05-06-2017 End: 05-06-2017 Appointment Appointment [facility] Work Phone: Start: 12-10-2016 Screening for malignant neoplasm of cervix Pap Testing [facility] Start: 06-29-2016 End: 06-30-2016 ENT referral ENT referral Iker Baird MD, [facility], [address] [place], [address] [facility] Work Phone: Start: 05-06-2016 End: 05-06-2016 Echocardiography Echocardiogram (complete) [facility] Work Phone: Start: 05-05-2016 End: 05-19-2016 Cardiac Referral Cardiac Referral Lamont Rubio MD, [facility], [address], [place], [address] [facility] Work Phone: Start: 04-29-2016 End: 04-29-2016 *CBC with Differential *CBC with Differential [facility] Work Phone: Start: 04-29-2016 End: 04-29-2016 Ferritin *Ferritin [facility] Work Phone: Start: 04-29-2016 End: 04-29-2016 Thyroid stimulating hormone (TSH) *TSH [facility] Work Phone: Start: 01-13-2016 End: 05-19-2016 Gynecology & Obstetrics Gynecology & Obstetrics Analy Nielsen, [facility], [address], [place], [address] [facility] Work Phone: Start: 11-18-2015 End: 12-30-2015 Ophthalmology Referral Ophthalmology Referral [facility], [address] [place], [address] [facility] Work Phone: Start: 11-18-2015 End: 12-30-2015 Other Referral Other Referral [facility] Provider, [address] [place], [address] [facility] Work Phone: Start: 06-26-2015 End: 06-26-2015 Us exam, breast(s) US Breast(s) [facility] Work Phone: Start: 12-26-2014 End: 09-09-2015 Other Referral Other Referral Radha Cornejo, [address] [facility] [place], [address] [facility] Work Phone: Start: 12-05-2014 Screening for malignant neoplasm of cervix HPV Testing [facility] Start: 11-27-2014 End: 11-28-2014 Urinalysis complete panel - Urine *UAC- Urinalysis, Complete w/ Micro [facility] Work Phone: Start: 11-22-2014 End: 11-22-2014 Urinalysis complete panel - Urine *UAC- Urinalysis, Complete w/ Micro [facility] Work Phone: Start: 10-21-2014 End: 10-21-2014 ENT referral ENT referral [facility], [address], [place], [address] [facility] Work Phone: Start: 10-21-2014 End: 10-21-2014 Other Referral Other Referral [facility] Provider, [address] [place], [address] [facility] Work Phone: Start: 09-13-2014 End: 09-18-2014 *CBC with Differential *CBC with Differential [facility] Work Phone: Start: 09-13-2014 End: 09-18-2014 *CMP Complete Metabolic Panel *CMP Complete Metabolic Panel [facility] Work Phone: Start: 09-13-2014 End: 09-18-2014 Thyroid stimulating hormone (TSH) *TSH [facility] Work Phone: Start: 09-13-2014 End: 09-18-2014 Thyroxine (T4) free *T4 free [facility] Work Phone: Start: 10-31-2013 End: 11-01-2013 Echocardiography Echocardiogram (complete) [facility] Work Phone: Start: 10-31-2013 End: 11-01-2013 Electrocardiogram, complete EKG (In office) [facility] Work Phone: Start: 10-31-2013 End: 11-01-2013 Follow Up Appt 1 year Follow Up Appt 1 year [facility] Work Phone: Start: 10-31-2013 End: 11-01-2013 PFM PFM [facility] Work Phone: Start: 10-31-2013 End: 11-01-2013 Stress Echocardiogram (treadmill) Stress Echocardiogram (treadmill) [facility] Work Phone: Start: 02-12-2013 Urine microalbumin profile DTaP,Tdap,Td Vaccine (2 - Tdap) [facility] Start: 2008 Diabetes Screening Diabetes Screening [facility] Start: 2008 Lipid panel Lipid Screening [facility] Start: 2008 Screening for malignant neoplasm of colon [facility] Start: 1982 Shingrix Vaccine (1 of 2) Shingrix Vaccine (1 of 2) [facility] Start: 1981 Hepatitis C screening Hepatitis C Screening [facility] Start: 1981 HIV screening HIV Screening [facility] Start: 1969 Pneumococcal vaccination Pneumococcal Vaccine (1 of 2 - PCV) [facility] Start: 1968 Covid-19 Vaccine (#1) Covid-19 Vaccine (#1) [facility] Patient Education [facility] in Work Phone: Patient referral [facility] Work Phone: Immunizations Immunization Date Immunization Notes Care Provider Lakisha Thrasher-06-2021 influenza, injectabl e, quadrivalent, preservative free Dr. Luis Manuel Madsen Work Phone: [facility] 08-19-2021 influenza, seasonal, injectable Dr. Luis Manuel Madsen Work Phone: [facility] 08-19-2021 influenza virus vaccine, unspecified formulation Purnima Keys MD Work Phone: [facility] 08-12-2020 influenza, injectabl e, quadrivalent, preservative free Dr. Luis Manuel Madsen Work Phone: [facility] 08-12-2020 influenza, seasonal, injectable Dr. Luis Manuel Madsen Work Phone: [facility] 08-09-2019 influenza, injectabl e, quadrivalent, preservative free Dr. Luis Manuel Madsen Work Phone: [facility] 08-09-2019 influenza, seasonal, injectable Dr. Luis Manuel Madsen Work Phone: [facility] 09-13-2018 influenza, injectabl e, quadrivalent, preservative free Dr. Luis Manuel Madsen Work Phone: [facility] 09-13-2018 influenza, seasonal, injectable Dr. Luis Manuel Madsen Work Phone: [facility] 08-10-2017 influenza, injectabl e, quadrivalent, preservative free Dr. Luis Manuel Madsen Work Phone: [facility] 08-10-2017 influenza, seasonal, injectable Dr. Luis Manuel Madsen Work Phone: [facility] 08-12-2016 influenza, injectabl e, quadrivalent, preservative free Dr. Luis Manuel Madsen Work Phone: [facility] 08-12-2016 influenza, seasonal, injectable Dr. Luis Manuel Madsen Work Phone: [facility] 08-13-2015 influenza, injectabl e, quadrivalent, preservative free Dr. Luis Manuel Madsen Work Phone: [facility] 08-13-2015 influenza, seasonal, injectable Dr. Luis Manuel Madsen Work Phone: [facility] 08-07-2014 influenza, injectabl e, quadrivalent, preservative free Dr. Luis Manuel Madsen Work Phone: [facility] 08-07-2014 influenza, seasonal, injectable Dr. Luis Manuel Madsen Work Phone: [facility] 11-21-[address] Luis Manuel Madsen Work Phone: [facility] 08-14-2011 influenza virus vaccine, unspecified formulation Purnima Keys MD Work Phone: [facility] 02-12-2003 diphtheria and tetan us toxoids, adsorbed for pediatric use Purnima Keys MD Work Phone: [facility] Work Phone: Payers Date Payer Category Payer Self-pay [id number] 2023 Private Health Insurance BRITTANY Ti TAMMY [facility] [id number] 2023-Present [phone] [address] [place] [address] PPO [id number] 2023 Unknown [id number] 2015 Unknown [id number] Unknown [facility] [id number] Unknown [id number] 62 Unknown [id number] 62 Unknown [id number] 62 Unknown [id number] 62 Unknown [id number] 62 Unknown [id number] 62 Unknown [id number] 62 Unknown [id number] 62 Unknown [id number] 62 Unknown [id number] 62 Social History Date Type Detail Facility Start: 04-07-2022 End: 12-18-2023 Tobacco smoking status PRIS Unknown if ever smoked [facility] Start: 02-27-2019 Non-smoker [facility] Start: 1965 Sex Assigned At Female [facility] Start: 01-09-2014 [facility] End: 11-15-2006 History of tobacco use Current smoker [facility] End: 11-15-2006 History of tobacco use Cigarette Smoker [facility] Start: 01-09-2014 Tobacco use and exposure Smokeless tobacco non-user [facility] Start: 02-15-2024 Alcohol intake Current drinke r of alcohol (finding) [facility] Start: 02-15-2024 History of Social function [facility] Start: 02-15-2024 Tobacco use panel [facility] National Score (1-100), lower number is lower risk 67 [facility] Start: 1965 Sex Assigned At Not on file C [facility] Medical Equipment Procedure Code Equipment Code Equipment Original Text Equipment Identifier Dates Salpingectomy, laparoscopic SIN 3GRM HEMOSTAT ABS FDA Start: 06-02-2021 Salpingectomy, laparoscopic SIN 3GRM HEMOSTAT ABS FDA Start: 06-02-2021 Salpingectomy, laparoscopic SIN 3GRM HEMOSTAT ABS FDA Start: 06-02-2021 Salpingectomy, laparoscopic SIN 3GRM HEMOSTAT ABS FDA Start: 06-02-2021 Salpingectomy, laparoscopic SIN 3GRM HEMOSTAT ABS FDA Start: 06-02-2021 Salpingectomy, laparoscopic SIN 3GRM HEMOSTAT ABS FDA Start: 06-02-2021 Cholecystocolostomy CLIP,HEMOLOC K MED WECK FDA Start: 11-24-2018 Cholecystocolostomy CLIP,HEMOLOC K MED WECK FDA Start: 11-24-2018 Cholecystocolostomy CLIP,HEMOLOC K MED WECK FDA Start: 11-24-2018 Cholecystocolostomy CLIP,HEMOLOC K MED WECK FDA Start: 11-24-2018 Cholecystocolostomy CLIP,HEMOLOC K MED WECK FDA Start: 11-24-2018 Cholecystocolostomy CLIP,HEMOLOC K MED WECK FDA Start: 11-24-2018 Cholecystocolostomy CLIP,HEMOLOC K MED WECK FDA Start: 11-24-2018 Cholecystocolostomy CLIP,HEMOLOC K MED WECK FDA Start: 11-24-2018 Cholecystocolostomy CLIP,HEMOLOC K MED WECK FDA Start: 11-24-2018 Cholecystocolostomy CLIP,HEMOLOC K MED WECK FDA Start: 11-24-2018 Cholecystocolostomy CLIP,HEMOLOC K MED WECK FDA Start: 11-24-2018 Cholecystocolostomy CLIP,HEMOLOC K MED WECK FDA Start: 11-24-2018 Mental Status Date Assessment Result Facility 11-16-2022 Cognitive function Voice/Name [facility] Work Phone: Progress note 02-15-2024 Note Date & Type Note Facility 02-15-2024 Note HNO ID: [id number] Author: PURNIMA KEYS MD Service: ? Author Type: Physician Type: Progress Notes Filed: 02/15/2024 09:23 Note Text: Female Pelvic Medicine AND Reconstructive Surgery Consult CHIEF COMPLAINT: Tamica Bellamy is a 58 year old female who presents for consultation requested by Dr. Luis Manuel Madsen for an opinion regarding lichen sclerosus. My final recommendations will be communicated back to the requesting physician by way of shared Medical record or letter to requesting physician via US mail. HISTORY OF PRESENT ILLNESS: Longstanding lichen slerosus, has failed multiple treatments and her vice president of communications (Amanda) recommended referral to discuss laser therapy. Has had a biopsy to confirm diagnosis. (13-14 years ago) She has used steroids in the past for this but her symptoms would and do always come back after she stops use of the medication. Medical and Symptom History: LMP: Patient's last menstrual period was 01/09/2009.; Menopause ablation: ALLERGIES Allergen Reactions Ambien [Zolpidem Ta* Intolerance withdrawal Codeine GI Upset Penicillins Rash, Swelling Percocet [Oxycodone* Unknown hallucinations Tramadol Other: See Comments Feels strange Valium [Diazepam] Other: See Comments Hyperactive Current Outpatient Medications Medication Sig ustekinumab (STELARA) 45 mg/0.5 mL sub-Q syringe Inject 45 mg subcutaneously one time only. dupilumab (DUPIXENT PEN) 300 mg/2 mL pen injection Inject subcutaneously every 2 weeks. VTAMA 1 % cream estradiol (ESTRACE) 0.01 % (0.1 mg/gram) vaginal cream Use fingertip amount nightly x 3 weeks LORazepam (ATIVAN) 0.5 mg Tab Take 1 tablet by mouth three times daily as needed. clobetasol (TEMOVATE) 0.05 % ointment Apply to affected area TWICE DAILY for 3 months, then wean to a maintenance of 1-2 times per week. No current facility-administered medications for this visit. 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) Depression Generalized anxiety disorder Mitral valve disorders(424.0) Psoriasis UC (ulcerative colitis) (HCC) Unspecified hypothyroidism FAMILY HISTORY Problem Relation Age of Onset Diabetes Mother Heart Mother Hypertension Mother Stroke Mother Alcohol/Drug Father Blood Disease Father Coronary Artery Disease Father DVT Father Cancer Maternal Grandmother COLON Cancer Sister COLON Alcohol/Drug Sister Alcohol/Drug Brother Blood Disease Sister DVT other (MS) Sister SOCIAL HISTORY Social History Tobacco Use Smoking status: Former Types: Cigarettes Quit date: 11/15/2006 Years since quittin.2 Smokeless tobacco: Never Tobacco comments: quit Vaping Use Vaping Use: Never used Substance Use Topics Alcohol use: Yes Comment: Seldom Drug use: No 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 Review of Systems Constitutional: Negative for chills, diaphoresis and fever. HENT: Negative for drooling, ear discharge, facial swelling, nosebleeds, sore throat and trouble swallowing. Eyes: Negative for discharge, redness, itching and visual disturbance. Respiratory: Negative for apnea, choking, chest tightness, shortness of breath, wheezing and stridor. Cardiovascular: Negative for chest pain and palpitations. Gastrointestinal: Negative for abdominal distention, abdominal pain, anal bleeding, blood in stool, nausea and vomiting. Endocrine: Negative for cold intolerance and heat intolerance. Genitourinary: Negative for genital sores, menstrual problem and vaginal bleeding. Musculoskeletal: Negative for gait problem, myalgias, neck pain and neck stiffness. Skin: Negative for pallor, rash and wound. Allergic/Immunologic: Negative for environmental allergies, food allergies and immunocompromised state. Neurological: Negative for dizziness, seizures, facial asymmetry, speech difficulty, light-headedness, numbness and headaches. Hematological: Negative for adenopathy. Does not bruise/bleed easily. Psychiatric/Behavioral: Negative for agitation, behavioral problems, confusion and hallucinations. OBJECTIVE: BP 122/76 Ht 157.5 cm (5' 2") Wt 55.6 kg (122 lb 9.6 oz) LMP 01/09/2009 BMI 22.42 kg/m? Physical Exam Exam conducted with a crisis nurse present. Constitutional: Appearance: She is well-developed. HENT: Head: Normocephalic and at (more content not included)... [facility] Progress note 02-15-2024 Note Date & Type Note Facility 02-15-2024 Note HNO ID: [id number] Author: MIREYA FARFAN MA Service: ? Author Type: Senior [employer] Etl Developer Type: Progress Notes Filed: 02/15/2024 09:23 Note Text: PFDI-20 Do you: Usually experience pressure in the lower abdomen? Yes, moderately bothersome (3) this is due to colitis Usually experience heaviness or dullness in the pelvic area? No (0) Usually have a bulge or something falling out that you can see or feel in your vaginal area? No (0) Ever have to push on the vagina or around the rectum to have or complete a bowel movement? No (0) Usually experience a feeling of incomplete bladder emptying? No (0) Ever have to push up on a bulge in the vaginal area with your fingers to start or complete urination? No (0) Feel you need to strain too hard to have a bowel movement? Yes, somewhat bothersome (2) Feel you have not completely emptied your bowels at the end of a bowel movement? Yes, somewhat bothersome (2) Usually lose stool beyond your control if your stool is well formed? No (0) Usually lose stool beyond your control if your stool is loose? No (0) Usually lose gas from the rectum beyond your control? No (0) Usually have pain when you pass your stool? No (0) Experience a strong sense of urgency and have to calixto to the bathroom to have a bowel movement? Yes, quite a bit bothersome (4) due to colitis Does part of your bowel ever pass through the rectum and bulge outside during or after a bowel movement? No (0) Usually experience frequent urination? No (0) Usually experience urine leakage associated with a feeling of urgency, that is, a strong sensation of needing to go to the bathroom? No (0) Usually experience urine leakage related to coughing, sneezing or laughing? No (0) Usually experience small amounts of urine leakage (that is, drops)? No (0) Usually experience difficulty emptying your bladder? No (0) Usually experience pain or discomfort in the lower abdomen or genital region? No (0) [facility] Instructions 02-15-2024 Patient Instructions Note Date & Type Note Facility 02-15-2024 Instructions Purnima Keys MD - 02/15/2024 8:59 AM EDT Images from the original note were not included. Vulvar Care Gentle care of the vulva is best. Avoid products and other items that may be irritating. The following may be helpful in relieving or reducing symptoms: Wear 100% cotton underwear. Do not wear underwear while sleeping. Avoid douching. Avoid irritants, such as perfumes, dyes, shampoos, detergents, and deodorants. Clean the vulva with water only. Switch to 100% cotton pads if regular pads are irritating. Use lubricants during sex, but avoid lubricants with flavor or cooling/warming sensation. Rinse and pat the vulva dry after urinating. After bathing, apply a thin layer of a preservative-free oil or petroleum jelly to hold in moisture and protect the skin. Avoid using a dental chair assembler to dry the vulvar area. Use cool gel packs on the vulva. USE ESTROGEN CREAM THREE NIGHTS PER WEEK. APPLY BEFORE THE CLOBETASOL OINTMENT. WAIT 20 MINUTES AND THEN APPLY OINTMENT. USE STEROID OINTMENT TWICE PER DAY FOR 3 MONTHS THEN WEAN. Fingertip Application Method (Do not use applicator unless instructed by your doctor) For Estrogen Cream DO THIS NIGHTLY FOR TWO WEEKS AND THEN THREE TIMES PER WEEK AT BEDTIME Based on symptoms, can continue to use nightly. This cream will not increase your risk for breast cancer, blood clot or stroke. Please notify your doctor if you are on an aromatase inhibitor for breast cancer. Wash your hands with soap and water and dry thoroughly. Squeeze tube to express out 1 gram of cream (about enough to cover the tip of your index finger, from the last joint to the fingertip. (See Figure 1) Figure 1 Figure 2 Locate the vaginal opening (see Figure 2). Immediately above the vaginal opening is the urethra (a small opening where urine is eliminated from you body). The urethra may not be as easily identified as the vagina because the opening is much smaller, however, use the diagram to determine its approximate location. Carefully spread the cream onto the top wall of the vagina just underneath the urethral area (see Figure 2, yellow highlighted area). As the cream is spread, some may be gently inserted into the vagina: however, it is not necessary to push the cream high into the vagina. Rub this into the vaginal wall underneath the urethra as one would rub lotion into the skin. Do not use the applicator that may come with the prescription for the estrogen cream. Use only the small fingertip amount as noted above. Jayna Issa Touch Pre- and Post-Internal Procedure Instructions ($520 per treatment) It is important to follow your provider's instructions before and after the procedure. Pre-Procedure Recommendations: Shower or bathe the morning of the procedure, so that the area to be lased is clean. Area must be clean, dry and without traces of cream, lotions or other substances that may interact with the laser Clip or trim long pubic hair before your procedure Understand and sign a Consent to Treat form Dress in loose fitting pants and cotton underwear on the day of the procedure Your care provider may apply topical anesthetic to the vulvar area prior to lasing to minimize discomfort Purchase supplies and medications needed for post-procedure care before the procedure Patient Supplies Needed: Moisturizing occlusive ointment, such as Aquaphor Healing Ointment or Vaseline ointment. Gentle, hypoallergenic skin cleanser Cold gel packs Patient prescriptions as directed by physician: antiviral and/or others Immediately Post-Procedure: Apply cold compresses or cold gel packs to the lased area for 20 minutes Schedule follow up visits Skin may feel sensitive and may be red, swollen and itchy Most patients resume normal activity as tolerated immediately after procedure Patient Post-Procedure Instructions Keep area moist by applying occlusive ointment to the lased area and reapply ointment after each wash and continue to use until tissue has fully healed. Wait 1 day before taking a shower or bath (avoid using hot water on the lased area until healing is complete) Use cold compresses or cold gel packs (20 minutes on; then 20 minutes off) as needed for swelling and discomfort Avoid lifting heavy weights or doing intense physical exercise for 3-4 days following the procedure Refrain from sexual intercourse for a week after the procedure. Wear loose, cotton underwear Avoid wearing panty hose and tight-fitting pants CONTACT OFFICE FOR ADDITIONAL QUESTIONS/CONCERNS [phone] documented in this encounter [facility] History of Present illness Narrative 02-15-2024 Purnima Keys MD - 02/15/2024 8:30 AM EDTRaMireya cruz MA - 02/15/2024 8:30 AM EDT Note Date & Type Note Facility 02-15-2024 History of Presen t illness Narrative Female Pel[facility] Consult CHIEF COMPLAINT: Tamica Bellamy is a 58 year old female who presents for consultation requested by Dr. Luis Manuel Madsen for an opinion regarding lichen sclerosus. My final recommendations will be communicated back to the requesting physician by way of shared Medical record or letter to requesting physician via US mail. HISTORY OF PRESENT ILLNESS: Longstanding lichen slerosus, has failed multiple treatments and her vice president of communications (Amanda) recommended referral to discuss laser therapy. Has had a biopsy to confirm diagnosis. (13-14 years ago) She has used steroids in the past for this but her symptoms would and do always come back after she stops use of the medication. Medical and Symptom History: LMP: Patient's last menstrual period was 01/09/2009.; Menopause ablation: ALLERGIES Allergen Reactions Ambien [Zolpidem Ta* Intolerance withdrawal Codeine GI Upset Penicillins Rash, Swelling Percocet [Oxycodone* Unknown hallucinations Tramadol Other: See Comments Feels strange Valium [Diazepam] Other: See Comments Hyperactive Current Outpatient Medications Medication Sig ustekinumab (STELARA) 45 mg/0.5 mL sub-Q syringe Inject 45 mg subcutaneously one time only. dupilumab (DUPIXENT PEN) 300 mg/2 mL pen injection Inject subcutaneously every 2 weeks. VTAMA 1 % cream estradiol (ESTRACE) 0.01 % (0.1 mg/gram) vaginal cream Use fingertip amount nightly x 3 weeks LORazepam (ATIVAN) 0.5 mg Tab Take 1 tablet by mouth three times daily as needed. clobetasol (TEMOVATE) 0.05 % ointment Apply to affected area TWICE DAILY for 3 months, then wean to a maintenance of 1-2 times per week. No current facility-administered medications for this visit. 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) Depression Generalized anxiety disorder Mitral valve disorders(424.0) Psoriasis UC (ulcerative colitis) ([facility]) Unspecified hypothyroidism FAMILY HISTORY Problem Relation Age of Onset Diabetes Mother Heart Mother Hypertension Mother Stroke Mother Alcohol/Drug Father Blood Disease Father Coronary Artery Disease Father DVT Father Cancer Maternal Grandmother COLON Cancer Sister COLON Alcohol/Drug Sister Alcohol/Drug Brother Blood Disease Sister DVT other (MS) Sister SOCIAL HISTORY Social History Tobacco Use Smoking status: Former Types: Cigarettes Quit date: 11/15/2006 Years since quittin.2 Smokeless tobacco: Never Tobacco comments: quit Vaping Use Vaping Use: Never used Substance Use Topics Alcohol use: Yes Comment: Seldom Drug use: No 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 Review of Systems Constitutional: Negative for chills, diaphoresis and fever. HENT: Negative for drooling, ear discharge, facial swelling, nosebleeds, sore throat and trouble swallowing. Eyes: Negative for discharge, redness, itching and visual disturbance. Respiratory: Negative for apnea, choking, chest tightness, shortness of breath, wheezing and stridor. Cardiovascular: Negative for chest pain and palpitations. Gastrointestinal: Negative for abdominal distention, abdominal pain, anal bleeding, blood in stool, nausea and vomiting. Endocrine: Negative for cold intolerance and heat intolerance. Genitourinary: Negative for genital sores, menstrual problem and vaginal bleeding. Musculoskeletal: Negative for gait problem, myalgias, neck pain and neck stiffness. Skin: Negative for pallor, rash and wound. Allergic/Immunologic: Negative for environmental allergies, food allergies and immunocompromised state. Neurological: Negative for dizziness, seizures, facial asymmetry, speech difficulty, light-headedness, numbness and headaches. Hematological: Negative for adenopathy. Does not bruise/bleed easily. Psychiatric/Behavioral: Negative for agitation, behavioral problems, confusion and hallucinations. OBJECTIVE: BP 122/76 Ht 157.5 cm (5' 2") Wt 55.6 kg (122 lb 9.6 oz) LMP 01/09/2009 BMI 22.42 kg/m Physical Exam Exam conducted with a crisis nurse present. Constitutional: Appearance: She is well-developed. HENT: Head: Normocephalic and atraumatic. Nose: Nose normal. Mouth/Throat: Mouth: Mucous membranes are moist. Pharynx: Oropharynx is clear. Eyes: Extraocular Movements: Extraocular movements intact. Conjunctiva/sclera: Conjunctivae normal. Pupils: Pupils are equal, round, and reactive to light. Cardiovascular: Rate and Rhythm: Normal rate. Pulmonary: Effort: Pulmonary effort is normal. Breath sounds: No wheezing, rhonchi or rales. Abdominal: General: Bowel sounds are normal. There is no distension. Palpations: Abdomen is soft. There is no mass. Tenderness: There is no abdominal tenderness. There is no guarding or rebound. Hernia: There is no hernia in the left inguinal area or right inguinal area. Genitourinary: General: Normal vulva. Exam position: Lithotomy position. Pubic Area: No rash. Labia: Right: No rash, tenderness, lesion or injury. Left: No rash, tenderness, lesion or injury. Urethra: No prolapse, urethral pain, urethral swelling or urethral lesion. Vagina: No vaginal discharge, erythema, tenderness, bleeding, lesions or prolapsed vaginal talavera. Comments: Evidence of lichen sclerosus along labia minora and clitoral shelton, cigarette paper appearance to epithelium. Atrophy noted at introitus as well Musculoskeletal: General: No swelling, tenderness, deformity or signs of injury. Normal range of motion. Cervical back: Normal range of motion and neck supple. Lymphadenopathy: Lower Body: No right inguinal adenopathy. No left inguinal adenopathy. Skin: General: Skin is warm and dry. Coloration: Skin is not jaundiced. Findings: No erythema or lesion. Neurological: Mental Status: She is alert and oriented to person, place, and time. Cranial Nerves: No cranial nerve deficit. Gait: Gait normal. Deep Tendon Reflexes: Reflexes are normal and symmetric. Psychiatric: Mood and Affect: Mood normal. Behavior: Behavior normal. Thought Content: Thought content normal. Judgment: Judgment normal. Assessment and Plan Problem List Items Addressed This Visit DRAG DOWN Vaginal atrophy For her vaginal atropy we discussed estrogen therapy. I explained to her that a very minimal amount of estrogen cream is absorbed into her system and that it is not going to put her at an increased risk for breast cancer UNLESS SHE IS ON AN AROMATASE INHIBITOR. ESTROGEN CREAM PLUS AI MAY RESULT IN HIGH A 39% INCREASED RISK OF RECURRENT BREAST CANCER. We also discussed the jayna issa touch vaginal laser therapy for her vaginal atrophy. Relevant Medications estradiol (ESTRACE) 0.01 % (0.1 mg/gram) vaginal cream Other Lichen sclerosus et atrophicus - Primary We discussed treatment options for lichen sclerosus. We talked about aloe vera, estrogen cream, steroid ointments and jayna luis manuel touch. We discussed the need for surveillance for lesions. Plan to use clobetasol religiously twice per day for 3 months. She will consider TOWN ADMINISTRATOR but we no longer offer it via insurance ([facility] policy). Relevant Medications clobetasol (TEMOVATE) 0.05 % ointment Purnima Keys MD This note was created using [employer]. PFDI-20 Do you: Usually experience pressure in the lower abdomen? Yes, moderately bothersome (3) this is due to colitis Usually experience heaviness or dullness in the pelvic area? No (0) Usually have a bulge or something falling out that you can see or feel in your vaginal area? No (0) Ever have to push on the vagina or around the rectum to have or complete a bowel movement? No (0) Usually experience a feeling of incomplete bladder emptying? No (0) Ever have to push up on a bulge in the vaginal area with your fingers to start or complete urination? No (0) Feel you need to strain too hard to have a bowel movement? Yes, somewhat bothersome (2) Feel you have not completely emptied your bowels at the end of a bowel movement? Yes, somewhat bothersome (2) Usually lose stool beyond your control if your stool is well formed? No (0) Usually lose stool beyond your control if your stool is loose? No (0) Usually lose gas from the rectum beyond your control? No (0) Usually have pain when you pass your stool? No (0) Experience a strong sense of urgency and have to calixto to the bathroom to have a bowel movement? Yes, quite a bit bothersome (4) due to colitis Does part of your bowel ever pass through the rectum and bulge outside during or after a bowel movement? No (0) Usually experience frequent urination? No (0) Usually experience urine leakage associated with a feeling of urgency, that is, a strong sensation of needing to go to the bathroom? No (0) Usually experience urine leakage related to coughing, sneezing or laughing? No (0) Usually experience small amounts of urine leakage (that is, drops)? No (0) Usually experience difficulty emptying your bladder? No (0) Usually experience pain or discomfort in the lower abdomen or genital region? No (0) documented in this encounter [facility] History of Past illness Narrative 01-15-2016 Note Date & Type Note Facility 01-15-2016 History of Past i llness Narrative Problem Noted Date Diagnosed Date Resolved Date Chronic pelvic pain in female 01/15/2016 08/27/2016 Chronic nausea 01/15/2016 08/27/2016 Dysmenorrhea 01/14/2009 01/10/2015 Sterilization 01/14/2009 01/09/2013 Excessive or frequent menstruation 12/06/2008 01/10/2015 PAIN ABDOMEN( Epigastric) 08/02/2006 Abdominal pain, right upper quadrant 04/26/2006 01/15/2016 documented as of this encounter (statuses as of 02/15/2024) [facility] Evaluation note Note Date & Type Note Facility Evaluation note Diagnosis Onset Date Cervical pain acute Degenerative disc disease, cervical acute [facility] Work Phone: Evaluation note Note Date & Type Note Facility Evaluation note Diagnosis Onset Date Cervical pain acute Degenerative disc disease, cervical acute Irritant contact dermatitis due to plant acute Lichen sclerosus [facility] Work Phone: Evaluation note Note Date & Type Note Facility Evaluation note No assessment information availa [facility] Work Phone: Evaluation note Note Date & Type Note Facility Evaluation note Diagnosis Onset Date URI (upper respiratory infection) [facility] Work Phone: Evaluation note Note Date & Type Note Facility Evaluation note Diagnosis 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 We talked about aloe vera, estrogen cream, steroid ointments and jayna luis manuel touch. We discussed the need for surveillance for lesions. Plan to use clobetasol religiously twice per day for 3 months. She will consider TOWN ADMINISTRATOR but we no longer offer it via insurance ([facility] policy). * Assessment & Plan Note - Purnima Keys MD - 02/15/2024 9:19 AM EDTAssociated Problem(s): Vaginal atrophy For her vaginal atropy we discussed estrogen therapy. I explained to her that a very minimal amountof estrogen cream is absorbed into her system and that it is not going to put her at an increased risk for breast cancer UNLESS SHE IS ON AN AROMATASE INHIBITOR. ESTROGEN CREAM PLUS AI MAY RESULT IN HIGH A 39% INCREASED RISK OF RECURRENT BREAST CANCER. We also discussed the jayna luis manuel touch vaginal laser therapy for her vaginal atrophy. 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 FRACTURE Chief Complaint CERVICAL PAIN EMPLOYEE [employer]S INJURY,POSSIBLE FRACTURE CHEST PAIN Chief Complaint INJURY,POSSIBLE FRAC TURE CHEST PAIN Chief Complaint SORE THROAT/GONZALES/FEVER COVID TEST/[facility] EMP Reason for Visit URI (upper respirato ry infection) Family History No Family History Records Found Relationship Condition Age at Onset Recorded Date/T navneet sister Asthma Unknown Malignant neoplasm of colon Unknown mother Diabetes mellitus Unknown Cardiac disease Unknown Hypertension Unknown Cerebrovascular accident (CVA) Unknown Advance Directives No Advanced Directives Records Found Advance Directive Response Recorded Date/ Time Advance Directives No May 14 7:10am Living Will No June 24 9:59pm Power of Bat Boy/Girl No June 24 9:59pm Advance Directive Response Recorded Date/ Time Advance Directives No May 28 4:35pm Living Will No May 28, 2022 4:35pm Power of Bat Boy/Girl No May 28 2 4:35pm Advance Directive Response Recorded Date/ Time Advance Directives No May 28 3:35pm Living Will No May 28, 2022 3:35pm Power of Bat Boy/Girl No May 28 2 3:35pm Advance Directive Response Recorded Date/ Time Advance Directives No May 28 3:35pm Living Will No November 16 3 8:26am Power of Bat Boy/Girl No November 16, 023 8:26am Advance Directive Response Recorded Date/ Time Advance Directives No May 28 4:35pm Living Will No November 16 3 9:26am Power of Bat Boy/Girl No November 16, 023 9:26am Summary Purpose Additional Source Comments Goals (unrecognized section and content) Goals may be documented in a n alternate sectionGoals may be documented in an alternate sectionGoals may be documented in an alternate sectionGoals may be documented in an alternate sectionGoals may be documented in an alternate sectionGoals may be documented in an alternate section Care Teams (unrecognized sec tion and content) Team Status: Active Member Role Status Dates Dr. Luis Manuel Madsen DO Family Provider Active Dr. Luis Manuel Madsen DO Primary Care Provider Active Team Status: Inactive Member Role Status Dates Dr. Luis Manuel Madsen DO Primary Care Provide r, Attending Provider, Referring Provider Active Team Status: Inactive Member Role Status Dates Dr. Luis Manuel Madsen DO Primary Care Provider Active Dr. Jairo Ramon MD Attending Provider, Emergency Provider Active Team Status: Inactive Member Role Status Dates Dr. Luis Manuel Madsen DO Primary Care Provider Active Dr. Augusto Martin MD Attending Provider Active Team Status: Inactive Member Role Status Dates Dr. Luis Manuel Madsen DO Primary Care Provider, Referring P rovider Active Heather Metzger NP-C Attending Provider Active Team Status: Inactive Member Role Status Dates Dr. Luis Manuel Madsen DO Primary Care Provider Active Dr. Jace Elizabeth DO Attending Provider, Referrin g Provider Active Parimutuel Clerk Relationship Specialty Start Date End Date Luis Manuel Madsen DO PCP - General Family Medicine 5/5/16 Source Comments (unrecognize d section and content) In the event this informatio n is protected by the Federal Confidentiality of Alcohol and Drug Abuse Patient Records regulations: The Federal rules restrict any use of the information to criminally investigate or prosecute any alcohol or drug abuse patient.[facility] Reason for Visit (unrecogniz ed section and content) Reason Comments lichen sclerosus Specialty Diagnoses / Procedures Referred By Rob siddiqi Referred To Contact Urogynecology / URO GYNECOLOGY Diagnoses Lichen sclerosus et atrophicus Lichens Sclerosus Procedures NEW PATIENT VISIT LEVEL 1 NEW [facility] PATIENT Self Purnima Keys MD [address] [place] [address] Referral ID Status Reason Start Date Expiration Date V isits Requested Visits Authorized [id number] Authorized 02/03/2024 11/13/2024 99 99 INFORMATION SOURCE (unrecogn ized section and content) DATE CREATED AUTHOR 02/16/2024 [facility] DATE CREATED AUTHOR AUTHOR'S JOSE AREVALO 09/26/2025 [facility] FOR RECORDS PERTAINING TO PATIENTS WHO ARE [...] BE BASED ON THE PRIMARY CLINICAL RECORDS. [employer] provides no warranty or guarantee of the accuracy or completeness of information in this document.
--- NOTE | 2025-09-28 07:40 | CT_ITS ---
PROCEDURE: EXTREMITY LOWER WITHOUT CONTRA 09/28/2025 REASON FOR EXAM: LEFT FOOT PAIN,NAVICULAR FX TECHNIQUE: Procedure Code: CTELWO Modality: CT Procedure: EXTREMITY LOWER WITHOUT CONTRA Coronal and Sagittal reconstruction series were provided. CONTRAST: None One or more dose reduction techniques were used (e.g., Automated exposure control, adjustment of the mA and/or kV according to patient size, use of iterative reconstruction technique). RADIATION DOSE SUMMARY: DLP: 722.87 mGycm COMPARISON: None FINDINGS: There is a nondisplaced fracture of the anterior process of the calcaneus, sagittal image 20 . There is an impacted and comminuted fracture of the dorsal aspect of the navicular which extends to the articular surface. The remainder of the metatarsals and tarsals appear intact. The distal tibia and fibula appear intact. Soft tissue swelling is present overlying the cuboid and at the sinus tarsi. The Achilles and plantar fascia appear intact. Mineralization is normal. There is no visible atherosclerosis. CT/Extremity Lower without Contra IMPRESSION: There is a nondisplaced fracture of the anterior process of the calcaneus, sagi ttal image 20 . There is an impacted and comminuted fracture of the dorsal aspect of the navicu lar which extends to the articular surface. Soft tissue swelling is present overlying the cuboid and at the sinus tarsi. [facility]
== END | disposition home or self-care (01) ==
LOC: CT 07:04
PROVIDERS: PCP Nurse Practitioner Family; Referring Provider Podiatrist Foot & Ankle Surgery; Visit Provider Podiatrist Foot & Ankle Surgery
DX: M79.672 Pain in left foot (principal); S92.225D Nondisplaced fracture of lateral cuneiform of left foot, subsequent encounter for fracture with routine healing
CPT/HCPCS: 73700